=== PATIENT | male | born 1975 | race Caucasian/White ===

== ENCOUNTER 2017-07-29 08:17 | Inpatient (IN) | payer OTHER ==
[~2017-07-29] VITALS: Ht 165.1 cm; Wt 50.5 kg
[~2017-07-29 08:17] MED LIST: ACET-141 GTB; ACET-2047 GTB; ALBU2.5V3 NEB; ASCO500S2 GTB; BACL10TA GTB; BISA10SU58 PR; CHLO118L3 TOP; CRAN3875 GTB; DOCU50LI23 GTB; ENOX40DI2 SC; FERR220S2 GTB; HYDR-3498 GTB; IBUP-1542 GTB; KEP100S GTB; LACO200T2 GTB; LANS30CA GTB; MAGN2400 GTB; METO-448 GTB; MULT9LIQ4 GTB; NA P118E PR; POTA20LI5 GTB
--- NOTE | 2017-07-29 08:33 | ERD ---
ER Documentation Chief Complaint Chief Complaint Dislodged left-sided nephrostomy tube yesterday at 10 AM HPI This is a 41-year-old patient with a history of chronic encephalopathy, ventilator dependent who presents with a dislodged left nephrostomy tube. It appears that it became dislodged and removed around 10 AM yesterday. The patient has a nephrostomy tube based on paper documentation that was placed secondary to ureterolithiasis. It appears that the nephrostomy tube is been present since at least January based on the documents provided by EMS. Remainder of HPI is very limited. Patient is nonverbal. ROS All systems reviewed and are negative except as per history of present illness. Medications Home Meds Reported Medications Chlorhexidine Gluconate* (Chlorhexidine Gluconate*) 118 Ml Liquid, 15 ML TOP Q12 , ML VIA TOOTHBRUSH Q/ORAL SUCTION FOR PREVENTION/REDUCTION OF PNA 08/09/16 Albuterol Sulfate* (Albuterol Sulfate* Neb) 0.083%-3 Ml Neb, 2.5 MG NEB Q6 Y for WHEEZING AND SOB, #30 VIAL 08/09/16 Albuterol Sulfate* (Albuterol Sulfate* Neb) 0.083%-3 Ml Neb, 2.5 MG NEB Q3H Y for WHEEZING AND SOB, #30 VIAL 08/09/16 Cran/Vitc/Mannose/Inulin/Brom (Uti-Stat Liquid) 3,875 Mg/30 Ml Liquid, 3875 MG GTB DAILY 08/09/16 Acetaminophen* (Acetaminophen*) 650 Mg Tablet, 650 MG GTB TRACHE CHANGE Y for PAIN AND OR ELEVATED TEMP, #30 TAB 08/09/16 Acetaminophen* (Acetaminophen*) 500 MG Extra Strength Tablet, 1000 MG GTB Q4 Y for MODERATE PAIN LEVEL 4-6, TAB 08/09/16 Ascorbic Acid* (Vitamin C* Liq) 500 Mg/5 Ml Syrup, 500 MG GTB DAILY, ML 03/19/16 Potassium Chloride* (Potassium Chloride*) 20 Meq/15 Ml Liquid, 20 MEQ GTB DAILY , ML 02/02/16 Metoprolol Tartrate* (Lopressor*) 25 Mg Tab, 25 MG GTB DAILY, #60 TAB HOLD FOR SBP BELOW 110 HR BELOW 60 02/02/16 Lansoprazole* (Lansoprazole*) 30 Mg Capsule.dr, 30 MG GTB DAILY, CAP 02/02/16 Ferrous Sulfate (Ferrous Sulfate) 220 Mg Solution, 330 MG GTB DAILY 02/02/16 Docusate Sodium* (Colace* Liq) 50 Mg/5 Ml Liquid, 100 MG GTB QHS Y for CONSTIPATION, EA 02/02/16 Acetaminophen* (Acetaminophen*) 650 Mg Tablet, 650 MG GTB Q4 Y for PAIN AND OR ELEVATED TEMP, #30 TAB 09/26/15 Acetaminophen* (Acetaminophen*) 650 Mg Tablet, 650 MG GTB Q4 Y for TRACH CHANGE , #30 TAB 09/26/15 Hydrocodone Bit-Acetaminophen* ([place]*) 5-325 Mg Tab, 1 TAB GTB BID Y for PAIN, TAB 09/26/15 Multivit &Minerals/Ferrous Fum (MULTIVITAMIN LIQUID) 9 Mg/15 Ml Liquid, 5 ML GTB DAILY 09/26/15 Magnesium Hydroxide* (Milk Of Magnesia*) 2,400 Mg/10 Oral.susp, 10 ML GTB DAILY , ML 09/26/15 Levetiracetam* (Keppra* (Ped)) 100 Mg/Ml Liq, 10 MG GTB TID for 30 Days, BOTTLE 09/26/15 Lacosamide (Vimpat) 200 Mg Tablet, 200 MG GTB BID, TAB 09/26/15 Ibuprofen* (Motrin*) 600 Mg Tab, 600 MG GTB Q6H Y for PAIN, TAB 09/26/15 Na Phos,M-B/Na Phos,Di-Ba* (Fleet* Enema) 118 Ml Enema, 118 ML IN Q48H Y for CONSTIPATION, ENEMA 09/26/15 Enoxaparin Sodium* (Enoxaparin Sodium*) 40 Mg/0.4 Ml Syringe, 40 MG SC DAILY, SYR 09/26/15 Bisacodyl* (Dulcolax*) 10 Mg/Supp.rect Supp.rect, 10 MG IN DAILY, SUPP.RECT 09/26/15 Baclofen* (Baclofen*) 10 Mg Tablet, 10 MG GTB TID, TAB 09/26/15 Allergies Allergies: Coded Allergies: No Known Allergy (Unverified , 08/09/16) PMhx/Soc History of Surgery: Yes (PEG AND TRACH) Anesthesia Reaction: No Hx Neurological Disorder: Yes (Anoxic Encephalopathy) Hx Respiratory Disorders: Yes (RESP FAILURE) Hx Cardiac Disorders: No Hx Psychiatric Problems: No Hx Miscellaneous Medical Probl: No Hx Substance Use: No FmHx Family History: No diabetes Physical Exam Vitals Vital Signs Date Time Temp Pulse Resp B/P Pulse Ox O2 Delivery O2 Flow Rate FiO2 07/29/17 11:29 97 22 100 40 07/29/17 11:23 102 18 117/80 100 Mechanical Ventilator 07/29/17 08:50 113 23 100 50 07/29/17 08:27 99.0 112 22 105/87 99 Physical Exam General: No significant distress Head: Normocephalic, atraumatic. Eyes: Pupils equally reactive, EOM intact ENT: Moist mucous membranes Neck: Supple, no lymphadenopathy, trach in good position Respiratory: Lungs clear bilaterally, no distress Cardiovascular: RRR, no murmurs, rubs, or gallops Abdominal: Soft, non-tender, non-distended, no peritoneal signs Back: Left flank dressing without evidence of nephrostomy tube, no bleeding, no drainage : Deferred MSK: Limited movement of all 4 extremities, no bony abnormalities Neurologic: Limited exam, and encephalopathic, limited movement of all 4 extremities Skin: No rash, no significant breakdown Psych: Unable to assess Result Diagram: 07/29/17 0854 07/29/17 0854 Results 24 hrs Laboratory Tests Test 07/29/17 08:35 07/29/17 08:54 07/29/17 11:03 Urine Color YELLOW Urine Clarity CLOUDY Urine pH 8.0 Urine Specific [place] 1.017 Urine Ketones NEGATIVEmg/dL Urine Nitrite NEGATIVEmg/dL Urine Bilirubin NEGATIVEmg/dL Urine Urobilinogen 1+mg/dL Urine Leukocyte Esterase TRACELeu/ul Urine Microscopic RBC 16/HPF Urine Microscopic WBC 25/HPF Urine Calcium Oxalate Crystals FEW/HPF Urine Amorphous Crystals FEW/HPF Urine Bacteria FEW/HPF Urine Hemoglobin NEGATIVEmg/dL Urine Glucose NEGATIVEmg/dL Urine Total Protein 2+mg/dl White Blood Count 15.410^3/ul Red Blood Count 3.4110^6/ul Hemoglobin 10.7g/dl Hematocrit 31.4% Mean Corpuscular Volume 92.1fl Mean Corpuscular Hemoglobin 31.4pg Mean Corpuscular Hemoglobin Concent 34.1g/dl Red Cell Distribution Width 16.4% Platelet Count 63094^3/UL Mean Platelet Volume 10.6fl Neutrophils % 78.8% Lymphocytes % 12.4% Monocytes % 7.0% Eosinophils % 0.8% Basophils % 0.3% Nucleated Red Blood Cells % 0.0/100WBC Neutrophils # 12.110^3/ul Lymphocytes # 1.910^3/ul Monocytes # 1.110^3/ul Eosinophils # 0.110^3/ul Basophils # 0.110^3/ul Nucleated Red Blood Cells # 0.010^3/ul Sodium Level 137mmol/L Potassium Level 4.4mmol/L Chloride Level 98mmol/L Carbon Dioxide Level 26mmol/L Anion Gap 17 Blood Urea Nitrogen 28mg/dl Creatinine 0.52mg/dl Glucose Level 99mg/dl Calcium Level 9.1mg/dl Lactic Acid Level 1.5mmol/L Current Medications Medications (Trade) Dose Ordered Sig/Henry Route PRN Reason Start Time Stop Time Status Last Admin Dose Admin Sodium Chloride 1400 ml 1,400 ml BOLUS OVER 2 HOURS STAT IV* 07/29/17 09:41 07/29/17 09:43 DC 07/29/17 09:41 Ceftriaxone Sodium (Rocephin) 50 ml @ 100 mls/hr ONCE STAT IVPB 07/29/17 09:41 07/29/17 10:10 DC 07/29/17 09:41 Ondansetron HCl (Zofran Inj) 4 mg BRIDGE ORDER PRN IV NAUSEA AND/OR VOMITING 07/29/17 12:00 07/30/17 11:59 Acetaminophen (Tylenol Tab) 650 mg ER BRIDGE PRN PO MILD PAIN/FEVER 07/29/17 12:00 07/30/17 11:59 Procedures/MDM EKG, MONITORS, & DIAGNOSTIC IMAGING: CT abdomen and pelvis: IMPRESSION: 1. Limited noncontrast CT of the abdomen and pelvis. Rectal fecal impaction with constipation. 2. Mild left hydroureteronephrosis. No obstructing calculus is seen. No significant interval change. 3. Multiple nonobstructing 2-3 mm calculi within the lower pole of the right kidney. 4. IVC filter in place. 5. Gastrostomy tube in place. 6. Suprapubic catheter. 7. Bilateral sacroiliac fusion. Chest x-ray pending. To be followed by admitting team LAB INTERPRETATION: Leukocytosis with urinary tract infection, normal lactic acid MEDICAL DECISION MAKING: This is a gentleman who presents because of dislodged and remove nephrostomy tube. The patient has no evidence of infection. It is unclear if the patient still requires the nephrostomy tube. This was placed many months ago for a ureteral stone. The patient will benefit from CT imaging to evaluate for hydronephrosis, retained stone. If there is no further need for nephrostomy tube then the patient can be safely discharged back to senior living facility. I will discuss the case with Dr. Springer, the managing provider. ER COURSE: The patient was found to have a urinary tract infection. This prompted sepsis screening with blood cultures. The patient was given a 30 cc/kg bolus of saline. Ceftriaxone provided for urinary tract infection. Patient's lactic acid is normal. He is hemodynamically stable. His diagnosis is consistent with sepsis without evidence of endorgan dysfunction. I kept the patient and/or family informed of laboratory and diagnostic imaging results throughout the emergency room course. DISPOSITION PLAN: Telemetry admission CONSULTATION: Accepting care team and consultations: I discussed the current laboratory data, diagnostic imaging and emergency care provided. Admitting team: Dr. Springer Admitting team indication: Insurance directed Departure Diagnosis: Primary Impression: Chronic respiratory failure Respiratory failure complication: unspecified whether with hypoxia or hypercapnia Qualified Code: J96.10 - Chronic respiratory failure, unspecified whether with hypoxia or hypercapnia Additional Impressions: Urinary tract infection Urinary tract infection type: acute cystitis Hematuria presence: without hematuria Qualified Code: N30.00 - Acute cystitis without hematuria Sepsis Sepsis type: sepsis due to unspecified organism Qualified Code: A41.9 - Sepsis, due to unspecified organism Encephalopathy chronic Condition: Stable ASHANTI DE LA CRUZ MD Jul 29, 2017 08:33
[2017-07-29 09:01] LABS: BASOPHIL # 0.1 10^3/ul (0.0-0.1); BASOPHILS % 0.3 % (0.0-2.0); EOSINOPHILS # 0.1 10^3/ul (0.0-0.5); EOSINOPHILS % 0.8 % (0.0-7.0); HEMATOCRIT 31.4 % (42.0-52.0); HEMOGLOBIN 10.7 g/dl (14.0-18.0); LYMPHOCYTES # 1.9 10^3/ul (0.8-2.9); LYMPHOCYTES % 12.4 % (15.0-51.0); MEAN CORPUSCULAR HEMOGLOBIN 31.4 pg (29.0-33.0); MEAN CORPUSCULAR HGB CONC 34.1 g/dl (32.0-37.0); MEAN CORPUSCULAR VOLUME 92.1 fl (82.0-101.0); MEAN PLATELET VOLUME 10.6 fl (7.4-10.4); MONOCYTE # 1.1 10^3/ul (0.3-0.9); NEUTROPHIL # 12.1 10^3/ul (1.6-7.5); NEUTROPHILS % 78.8 % (39.0-77.0); PLATELET COUNT 366 10^3/UL (140-415); RED BLOOD COUNT 3.41 10^6/ul (4.70-6.10); RED CELL DISTRIBUTION WIDTH 16.4 % (11.5-14.5); WHITE BLOOD COUNT 15.4 10^3/ul (4.8-10.8)
[2017-07-29 09:05] LABS: ADD UMIC YES; UR AMORPHOUS CRYSTAL FEW /HPF (NONE SEEN); UR ASCORBIC ACID 40 mg/dL (NEGATIVE); UR BACTERIA FEW /HPF (NONE SEEN); UR BILIRUBIN (Dip) NEGATIVE (NEGATIVE); UR BLOOD (Dip) NEGATIVE (NEGATIVE); UR CLARITY CLOUDY (CLEAR); UR COLOR YELLOW (YELLOW); UR GLUCOSE (Dip) NEGATIVE (NEGATIVE); UR KETONES (Dip) NEGATIVE (NEGATIVE); UR LEUKOCYTE ESTERASE (Dip) TRACE Leu/ul (NEGATIVE); UR NITRITE (Dip) NEGATIVE (NEGATIVE); UR RBC 16 /HPF (0-5); UR SPECIFIC GRAVITY (Dip) 1.017 (1.003-1.030); UR TOTAL PROTEIN (Dip) 2+ mg/dl (NEGATIVE); UR UROBILINOGEN (Dip) 1+ mg/dL (NEGATIVE)
[2017-07-29 09:30] LABS: CALCIUM 9.1 mg/dl (8.4-10.2); CREATININE 0.52 mg/dl (0.61-1.24); POTASSIUM 4.4 mmol/L (3.5-5.1)
[2017-07-29] MEDS ORDERED: CEFTRIAXONE 1 GM/50 ML (PMX) 50 ML IVPB STA (09:41)
[2017-07-29] MEDS ORDERED: SODIUM CHLORIDE 0.9% 1L BAG IV* STA (09:41)
--- NOTE | 2017-07-29 10:05 | RADRPT ---
PROCEDURE: CT Abdomen and Pelvis without contrast. CLINICAL INDICATION: Abdominal pain. TECHNIQUE: Routine axial tomographic images of the abdomen and pelvis were obtained from the domes the diaphragm to the symphysis pubis. The patient was scanned withoutoral or intravenous contrast. Coronal and sagittal reformatted images were obtained from the axial source images. Images were re viewed on a high-resolution PACS workstation. The total exam CTDI equals 7.81 mGy and the total exam DLP equals 426.23 mGy-cm. One or more of the following dose reduction techniques were used: Autom ated exposure control, adjustment of the mA and / or kV according to patient size, or use of iterati ve reconstruction technique. DICOM images are available. COMPARISON: CT 02/17/2016 FINDINGS: The visualized portions of the lung bases demonstrate right basilar atelectasis Evaluation of the intra-abdominal solid organs is somewhat limited on this noncontrast examination. The liver appear s normal in size. There is no intra or extrahepatic biliary dilatation. The gallbladder is unremar kable by CT criteria. The spleen, pancreas, and adrenal glands are unremarkable. An IVC filter is i n place. The kidneys are symmetric in size. There is mild left hydronephrosis and hydroureter. There are mul tiple nonobstructing 2-3 mm calculi within the lower pole of the right kidney. No perinephric inflam matory changes are identified. The urinary bladder is decompressed by a suprapubic catheter. A gastrostomy tube is in place. The bowel demonstrates normal course and caliber. There is no evide nce of bowel obstruction. The appendix is not visualized with certainty. There is large volume insp issated stool throughout the colon and within the rectum. The pelvic organs are grossly unremarkabl e. No intraperitoneal free fluid, free air, or abscess is identified. No retroperitoneal, mesenteri c, or inguinal lymphadenopathy is identified. The aorta is normal in caliber. The osseous structures demonstrate fusion of the sacroiliac joints. No significant subcutaneous so ft tissue abnormalities are seen. IMPRESSION: 1. Limited noncontrast CT of the abdomen and pelvis. Rectal fecal impaction with constipation. 2. Mild left hydroureteronephrosis. No obstructing calculus is seen. No significant interval change . 3. Multiple nonobstructing 2-3 mm calculi within the lower pole of the right kidney. 4. IVC filter in place. 5. Gastrostomy tube in place. 6. Suprapubic catheter. 7. Bilateral sacroiliac fusion. RPTAT: HH .Taylor Haider MD, Date Time Electronically viewed and signed by .Taylor Haider MD, on 07/29/2017 10:05 .G/
[2017-07-29] MEDS ORDERED: ONDANSETRON 4 MG INJ IV PRN (12:00)
[2017-07-29] MEDS ORDERED: ACETAMINOPHEN 325 MG TAB PO PRN (12:00)
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
[2017-07-29] MEDS ORDERED: LACTINEX GTB (12:50)
[2017-07-29] MEDS ORDERED: CRAN425C2 GTB (12:52)
[2017-07-29] MEDS ORDERED: LEVE500S8 GTB (12:53)
[2017-07-29] MEDS ORDERED: PANT40TA4 PO (12:54)
[2017-07-29] MEDS ORDERED: LORAZEPAM 2 MG INJ IV PRN (14:00)
[2017-07-29] MEDS ORDERED: NACL 0.9% 3 ML SYG IV SCH (14:00)
[2017-07-29] MEDS ORDERED: ALBUTEROL 0.083% (NEB) 2.5 MG/3 ML AMP NEB PRN (14:30)
[2017-07-29] MEDS ORDERED: DOCUSATE SODIUM 10 MG/ML (10ML CUP) GTB PRN (14:30)
[2017-07-29] MEDS ORDERED: POLYETHYLENE GLYCOL 17 GM PACKET GTB PRN (14:30)
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
[2017-07-29] MEDS ORDERED: VANCOMYCIN IV PER PHARMACY XX SCH (16:00)
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
[2017-07-29] MEDS ORDERED: VANCOMYCIN 1 GM in NS 250 ML IVPB SCH (19:00)
[2017-07-29] MEDS: FAMOTIDINE 20 MG TAB GTB SCH (21:17)
[2017-07-29] MEDS: CEFEPIME 1GM/50 ML (PMX) 50 ML IVPB SCH (21:40)
[2017-07-29] MEDS: BACLOFEN 10 MG TAB GTB SCH (22:25)
[2017-07-29] MEDS: LEVETIRACETAM (100 MG/ML) 5ML CUP GTB SCH (22:32)
[2017-07-30] VITALS (25 sets, daily range): BP systolic 98–130; BP diastolic 66–96; PULSE 71–96; RESP 14–26; TEMP 98
[2017-07-30] MEDS: NS + KCL 20 MEQ 1,000 ML IV SCH ×4 (00:30→18:20)
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
[2017-07-30] MEDS ORDERED: VANCOMYCIN 750 MG in DEXTROSE 5% 150 ML IVPB SCH ×2 (05:00→09:30)
[2017-07-30] MEDS: LEVETIRACETAM (100 MG/ML) 5ML CUP GTB SCH ×3 (06:33→21:43)
[2017-07-30 07:35] LABS: ALBUMIN 3.6 g/dl (3.3-4.9); ALBUMIN/GLOBULIN RATIO 0.9; BILIRUBIN,INDIRECT 0.7 mg/dl (0-1.1); BILIRUBIN,TOTAL 0.7 mg/dl (0.2-1.3); CALCIUM 9.1 mg/dl (8.4-10.2); CREATININE 0.38 mg/dl (0.61-1.24); POTASSIUM 3.6 mmol/L (3.5-5.1); TOTAL PROTEIN 7.6 g/dl (6.1-8.1)
[2017-07-30] MEDS: SACCHAROMYCES BOULARDII 250 MG CAP GTB SCH (08:41)
[2017-07-30] MEDS: BACLOFEN 10 MG TAB GTB SCH ×2 (08:41→21:43)
[2017-07-30] MEDS: FERROUS SULFATE 60 MG/ML 5ML CUP GTB SCH (08:41)
[2017-07-30] MEDS: FAMOTIDINE 20 MG TAB GTB SCH ×2 (08:41→21:43)
[2017-07-30] MEDS: CEFEPIME 1GM/50 ML (PMX) 50 ML IVPB SCH ×2 (08:41→20:47)
[2017-07-30] MEDS: ASCORBIC ACID 500 MG TAB GTB SCH (08:41)
[2017-07-30] MEDS: ENOXAPARIN 30 MG/0.3 ML SYG SC SCH (08:44)
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
[2017-07-30] MEDS: VANCOMYCIN 750 MG in DEXTROSE 5% 150 ML IVPB SCH ×2 (13:46→21:49)
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
--- NOTE | 2017-07-30 19:37 | CONS ---
Date/Time of Note Date/Time of Note DATE: 07/30/17 TIME: 19:31 Assessment/Plan Assessment/Plan Additional Assessment/Plan IMP: 1. VDRF 2. UTI 3. Encephalopathy 4. s/p Nephrostomy tube dislodgement 5. Seizure D/O RECS: 1. Vent support 2. Obtain ABG 3. Will provide vent settings 4. BDs 5. TF/Free H20 Consultation Date/Type/Reason Admit Date/Time Jul 29, 2017 at 11:57 Type of Consultation: Pulm Hx of Present Illness Briefly, this is a 41-year-old male with a history of chronic anoxic encephalopathy, ventilator dependent respiratory failure with tracheostomy, dysphagia with G-tube and neurogenic bladder with a suprapubic tube and nephrostomy, bedridden bilateral contracted extremities, seizure disorder, resident of a SNF, transferred from his SNF for dislodgment of a nephrostomy tube, found to have a UTI with no clear indication for a nephrostomy. Subjective hx not possible: pt non-verbal Past Medical History as per HPI Medical History: other Past Surgical History Past Surgical Hx: other Family History Significant Family History: no pertinent family hx Social History Alcohol Use: none Smoking Status: Unknown if ever smoked Drug Use: none Exam/Review of Systems Vital Signs Vitals Vital Signs Date Time Temp Pulse Resp B/P Pulse Ox O2 Delivery O2 Flow Rate FiO2 07/30/17 19:24 90 26 98 30 07/30/17 15:16 98.2 104/69 07/30/17 00:45 Mechanical Ventilator Intake and Output 07/29/17 07/29/17 07/30/17 15:00 23:00 07:00 Intake Total 50 ml 700 ml Output Total 700 ml 1200 ml Balance -650 ml -500 ml Exam Head: atraumatic, normocephalic Eyes: EOMI, nl conjunctiva, nl lids ENMT: nl external ears & nose, nl lips & teeth Neck: non-tender, supple Respiratory: clear to auscultation, normal air movement Cardiovascular: nl pulses, regular rate and rhythm Gastrointestinal: nl liver, spleen, non-tender, soft Extremities: other (contacted ) Results Result Diagram: 07/29/17 0854 07/30/17 0612 Results 24 hrs Laboratory Tests Test 07/29/17 21:55 07/30/17 06:12 Lactic Acid Level 0.7 Sodium Level 141 Potassium Level 3.6 Chloride Level 108 # Carbon Dioxide Level 21 Anion Gap 16 Blood Urea Nitrogen 16 # Creatinine 0.38 L Glucose Level 95 Calcium Level 9.1 Total Bilirubin 0.7 Direct Bilirubin 0.00 Indirect Bilirubin 0.7 Aspartate Amino Transf (AST/SGOT) 34 Alanine Aminotransferase (ALT/SGPT) 53 Alkaline Phosphatase 106 Total Protein 7.6 Albumin 3.6 Globulin 4.00 H Albumin/Globulin Ratio 0.90 Medications Medications Current Medications Lorazepam (Ativan) 0.5 mg Q6H PRN IV ANXIETY; Start 07/29/17 at 14:00 Acetaminophen (Tylenol Liquid) 650 mg Q6H PRN GTB PAIN LEVEL 1-3 OR FEVER; Start 07/29/17 at 14:00 Morphine Sulfate (morphine) 2 mg Q4H PRN IV PAIN LEVEL 7-10; Start 07/29/17 at 14:00 Famotidine (Pepcid) 20 mg Q12 GTB Last administered on 07/30/17 08:41; Admin Dose 20 MG; Start 07/29/17 at 21:00 Enoxaparin Sodium (Lovenox) 30 mg DAILY SC Last administered on 07/30/17 08:44 ; Admin Dose 30 MG; Start 07/30/17 at 09:00 Albuterol (Proventil 0.083% (Neb)) 2.5 mg Q6 PRN NEB WHEEZING AND SOB; Start 07/29/17 at 14:30 Ascorbic Acid (Vitamin C) 500 mg DAILY GTB Last administered on 07/30/17 08:41 ; Admin Dose 500 MG; Start 07/30/17 at 09:00 Baclofen (Lioresal) 10 mg BID GTB Last administered on 07/30/17 08:41; Admin Dose 10 MG; Start 07/29/17 at 21:00 Docusate Sodium (Colace Liquid Cup) 100 mg QHS PRN GTB CONSTIPATION; Start 07/29/17 at 14:30 Levetiracetam (Keppra Liquid) 1,000 mg Q8 GTB Last administered on 07/30/17 13 :42; Admin Dose 1,000 MG; Start 07/29/17 at 22:00 Ferrous Sulfate (Feosol Liquid Cup) 300 mg DAILY GTB Last administered on 08:41; Admin Dose 300 MG; Start 07/30/17 at 09:00 Saccharomyces Boulardii 1 mg 1 mg DAILY GTB ; Start 07/30/17 at 09:00 Potassium Chloride/Sodium Chloride (NS-KCl 20 Meq) 1,000 ml @ 100 mls/hr Q10H IV Last administered on 07/30/17 18:20; Admin Dose 100 MLS/HR; Start 07/29/17 at 14:30 Polyethylene Glycol 17 gm 17 gm DAILY PRN GTB CONSTIPATION; Start 07/29/17 at 14:30 Cefepime HCl 50 ml @ 100 mls/hr Q12 IVPB Last administered on 07/30/17 08:41 ; Admin Dose 100 MLS/HR; Start 07/29/17 at 21:00 Vancomycin HCl/ Dextrose/Water (Vancocin/D5W) 150 ml @ 75 mls/hr Q8 IVPB Last administered on 07/30/17 13:46; Admin Dose 75 MLS/HR; Start 07/30/17 at 14:00 Miscellaneous Information (*Rx Drug Level Order Reminder*) VANCOMYCIN TROUGH ON ... ONCE ONCE XX ; Start 07/30/17 at 21:00; Stop 07/30/17 at 21:01 YESSICA HIGH MD Jul 30, 2017 19:37
--- NOTE | 2017-07-30 21:58 | CONS ---
Date/Time of Note Date/Time of Note DATE: 07/30/17 TIME: 21:45 Consult Date/Type/Reason Admit Date/Time Jul 29, 2017 at 11:57 Initial Consult Date jul 2903/2017 Type of Consultation: Urology Reason for Consultation hydronephrosis Subjective not communicative,SP tube is draining clear urine Objective Vital Signs Date Time Temp Pulse Resp B/P Pulse Ox O2 Delivery O2 Flow Rate FiO2 07/30/17 21:28 89 22 97 30 07/30/17 19:48 98.3 130/76 07/30/17 00:45 Mechanical Ventilator Intake and Output 07/29/17 07/29/17 07/30/17 15:00 23:00 07:00 Intake Total 50 ml 700 ml Output Total 700 ml 1200 ml Balance -650 ml -500 ml Exam SP tube draining well,no hematuria Results/Medications Result Diagram: 07/29/17 0854 07/30/17 0612 Results 24 hrs Laboratory Tests Test 07/29/17 21:55 07/30/17 06:12 07/30/17 21:01 Lactic Acid Level 0.7 Sodium Level 141 Potassium Level 3.6 Chloride Level 108 # Carbon Dioxide Level 21 Anion Gap 16 Blood Urea Nitrogen 16 # Creatinine 0.38 L Glucose Level 95 Calcium Level 9.1 Total Bilirubin 0.7 Direct Bilirubin 0.00 Indirect Bilirubin 0.7 Aspartate Amino Transf (AST/SGOT) 34 Alanine Aminotransferase (ALT/SGPT) 53 Alkaline Phosphatase 106 Total Protein 7.6 Albumin 3.6 Globulin 4.00 H Albumin/Globulin Ratio 0.90 Vancomycin Level Trough 17.0 Medications Current Medications Lorazepam (Ativan) 0.5 mg Q6H PRN IV ANXIETY; Start 07/29/17 at 14:00 Acetaminophen (Tylenol Liquid) 650 mg Q6H PRN GTB PAIN LEVEL 1-3 OR FEVER; Start 07/29/17 at 14:00 Morphine Sulfate (morphine) 2 mg Q4H PRN IV PAIN LEVEL 7-10; Start 07/29/17 at 14:00 Famotidine (Pepcid) 20 mg Q12 GTB Last administered on 07/30/17 21:43; Admin Dose 20 MG; Start 07/29/17 at 21:00 Enoxaparin Sodium (Lovenox) 30 mg DAILY SC Last administered on 07/30/17 08:44 ; Admin Dose 30 MG; Start 07/30/17 at 09:00 Albuterol (Proventil 0.083% (Neb)) 2.5 mg Q6 PRN NEB WHEEZING AND SOB; Start 07/29/17 at 14:30 Ascorbic Acid (Vitamin C) 500 mg DAILY GTB Last administered on 07/30/17 08:41 ; Admin Dose 500 MG; Start 07/30/17 at 09:00 Baclofen (Lioresal) 10 mg BID GTB Last administered on 07/30/17 21:43; Admin Dose 10 MG; Start 07/29/17 at 21:00 Docusate Sodium (Colace Liquid Cup) 100 mg QHS PRN GTB CONSTIPATION; Start 07/29/17 at 14:30 Levetiracetam (Keppra Liquid) 1,000 mg Q8 GTB Last administered on 07/30/17 21 :43; Admin Dose 1,000 MG; Start 07/29/17 at 22:00 Ferrous Sulfate (Feosol Liquid Cup) 300 mg DAILY GTB Last administered on 08:41; Admin Dose 300 MG; Start 07/30/17 at 09:00 Saccharomyces Boulardii 1 mg 1 mg DAILY GTB ; Start 07/30/17 at 09:00 Potassium Chloride/Sodium Chloride (NS-KCl 20 Meq) 1,000 ml @ 100 mls/hr Q10H IV Last administered on 07/30/17 18:20; Admin Dose 100 MLS/HR; Start 07/29/17 at 14:30 Polyethylene Glycol 17 gm 17 gm DAILY PRN GTB CONSTIPATION; Start 07/29/17 at 14:30 Cefepime HCl 50 ml @ 100 mls/hr Q12 IVPB Last administered on 07/30/17 20:47 ; Admin Dose 100 MLS/HR; Start 07/29/17 at 21:00 Vancomycin HCl/ Dextrose/Water (Vancocin/D5W) 150 ml @ 75 mls/hr Q8 IVPB Last administered on 07/30/17 13:46; Admin Dose 75 MLS/HR; Start 07/30/17 at 14:00 Assessment/Plan Chief Complaint/Hosp Course 41 year old male with respiratory failure and is on a respirator. He has a mild left hydronephrosis and there is no obstructing stones in the ureter. He had a left nephrostomy while in the SNF and that came out.His renal function is normal. We'll observe.For now treat the infection. Problems: LAYLA BOLES MD Jul 30, 2017 21:57
[2017-07-31] VITALS (25 sets, daily range): BP systolic 129–159; BP diastolic 68–83; PULSE 55–87; RESP 14–22
[2017-07-31 05:22] LABS: AADO2 Arterial 45.5 mmHg (7.0-24.0); Allen Test ACCEPTAB; Arterial Base Excess -2.6 mmol/L (-3.0-3); Arterial COHb 0 % (0.0-3.0); Arterial Fraction of Oxyhgb 98.4 % (93.0-99.0); Arterial HCO3 20.6 mmol/L (22.0-26.0); Arterial MetHb 0.1 % (0.0-1.5); Arterial Total Hemglobin 10.9 g/dl (12.0-18.0); MODE VEBT - AC
[2017-07-31] MEDS: VANCOMYCIN 750 MG in DEXTROSE 5% 150 ML IVPB SCH (06:17)
[2017-07-31] MEDS: LEVETIRACETAM (100 MG/ML) 5ML CUP GTB SCH ×3 (06:17→21:11)
[2017-07-31] MEDS: NS + KCL 20 MEQ 1,000 ML IV SCH ×3 (06:19→21:28)
[2017-07-31] MEDS: ASCORBIC ACID 500 MG TAB GTB SCH (08:37)
[2017-07-31] MEDS: FAMOTIDINE 20 MG TAB GTB SCH ×2 (08:37→21:11)
[2017-07-31] MEDS: BACLOFEN 10 MG TAB GTB SCH ×2 (08:37→21:11)
[2017-07-31] MEDS: SACCHAROMYCES BOULARDII 250 MG CAP GTB SCH (08:37)
[2017-07-31] MEDS: FERROUS SULFATE 60 MG/ML 5ML CUP GTB SCH (08:37)
[2017-07-31] MEDS: CEFEPIME 1GM/50 ML (PMX) 50 ML IVPB SCH ×2 (08:38→21:29)
[2017-07-31] MEDS: ENOXAPARIN 30 MG/0.3 ML SYG SC SCH (08:38)
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
[2017-07-31] MEDS ORDERED: AMIKACIN IV PER PHARMACY XX SCH (14:30)
[2017-07-31] MEDS: AMIKACIN 750 MG in DEXTROSE 5% 100 ML IVPB SCH (14:48)
--- NOTE | 2017-07-31 15:32 | CONS ---
Date/Time of Note Date/Time of Note DATE: 07/31/17 TIME: 15:28 Consult Date/Type/Reason Admit Date/Time Jul 29, 2017 at 11:57 Initial Consult Date jul 2903/2017 Type of Consultation: Urology Reason for Consultation This large nephrostomy tube. Subjective Patient on a respirator, not communicative but he looks at you when you call his name and open his mouth when asked to Objective Vital Signs Date Time Temp Pulse Resp B/P Pulse Ox O2 Delivery O2 Flow Rate FiO2 07/31/17 15:21 98.6 63 18 137/78 97 07/31/17 12:51 30 07/30/17 00:45 Mechanical Ventilator Intake and Output 07/30/17 07/30/17 07/31/17 15:00 23:00 07:00 Intake Total 50 ml 1810 ml 1050 ml Output Total 450 ml 750 ml Balance 50 ml 1360 ml 300 ml Exam Patient on a respirator, has a suprapubic tube that is draining clear urine, his renal function is stable, in fact his creatinine is a little better Results/Medications Result Diagram: 07/29/17 0854 07/30/17 0612 Results 24 hrs Laboratory Tests Test 07/30/17 21:01 07/31/17 05:00 Vancomycin Level Trough 17.0 Blood Gas Specimen Source Blood arterial Arterial Blood Date Drawn 07/31/2017 4:57:03 AM Arterial Blood pH (Temp corrected) 7.448 Arterial Blood pCO2 (Temp correct) 30.5 L Arterial Blood pO2 (Temp corrected) 132.6 H Arterial Blood HCO3 20.6 L Arterial Blood Base Excess -2.6 Arterial Blood Oxygen Saturation 98.5 H Javi Test ACCEPTAB Arterial Blood Gas Puncture Site Right Radial Arterial Blood Carboxyhemoglobin 0 Arterial Blood Methemoglobin 0.1 Blood Gas A-a O2 Differential 45.5 H Oxyhemoglobin Percent 98.4 Total Hemoglobin 10.9 L Blood Gas Temperature 37.0 Blood Gas Respiration Rate 14.0 Blood Gas Actual Respiration Rate 14 Blood Gas Modality VEBT - AC FiO2 30.0 Blood Gas Tidal Volume 300.0 Blood Gas Low PEEP Setting 5.0 Blood Gas Inspiratory Pressure 20.0 Blood Gas Notified Whom RTR Blood Gas Notified Time 07/31/2017 5:22:30 AM Medications Current Medications Lorazepam (Ativan) 0.5 mg Q6H PRN IV ANXIETY; Start 07/29/17 at 14:00 Acetaminophen (Tylenol Liquid) 650 mg Q6H PRN GTB PAIN LEVEL 1-3 OR FEVER; Start 07/29/17 at 14:00 Morphine Sulfate (morphine) 2 mg Q4H PRN IV PAIN LEVEL 7-10; Start 07/29/17 at 14:00 Famotidine (Pepcid) 20 mg Q12 GTB Last administered on 07/31/17 08:37; Admin Dose 20 MG; Start 07/29/17 at 21:00 Enoxaparin Sodium (Lovenox) 30 mg DAILY SC Last administered on 07/31/17 08: 38; Admin Dose 30 MG; Start 07/30/17 at 09:00 Albuterol (Proventil 0.083% (Neb)) 2.5 mg Q6 PRN NEB WHEEZING AND SOB; Start 07/29/17 at 14:30 Ascorbic Acid (Vitamin C) 500 mg DAILY GTB Last administered on 07/31/17 08: 37; Admin Dose 500 MG; Start 07/30/17 at 09:00 Baclofen (Lioresal) 10 mg BID GTB Last administered on 07/31/17 08:37; Admin Dose 10 MG; Start 07/29/17 at 21:00 Docusate Sodium (Colace Liquid Cup) 100 mg QHS PRN GTB CONSTIPATION; Start 07/29/17 at 14:30 Levetiracetam (Keppra Liquid) 1,000 mg Q8 GTB Last administered on 07/31/17 14:48; Admin Dose 1,000 MG; Start 07/29/17 at 22:00 Ferrous Sulfate (Feosol Liquid Cup) 300 mg DAILY GTB Last administered on 07/31 08:37; Admin Dose 300 MG; Start 07/30/17 at 09:00 Saccharomyces Boulardii 1 mg 1 mg DAILY GTB Last administered on 07/31/17 08: 37; Admin Dose 1 MG; Start 07/30/17 at 09:00 Potassium Chloride/Sodium Chloride (NS-KCl 20 Meq) 1,000 ml @ 100 mls/hr Q10H IV Last administered on 07/31/17 06:19; Admin Dose 100 MLS/HR; Start at 14:30 Polyethylene Glycol 17 gm 17 gm DAILY PRN GTB CONSTIPATION; Start 07/29/17 at 14:30 Cefepime HCl 50 ml @ 100 mls/hr Q12 IVPB Last administered on 07/31/17 08:38 ; Admin Dose 100 MLS/HR; Start 07/29/17 at 21:00 Vancomycin HCl 250 ml @ 125 mls/hr Q12H IVPB ; Start 07/31/17 at 18:00 Amikacin Sulfate/ Dextrose (Amikacin/D5W) 103 ml @ 102 mls/hr Q24H IVPB Last administered on 07/31/17 14:48; Admin Dose 102 MLS/HR; Start 07/31/17 at 15: 00 Amikacin Sulfate (Amikacin Iv Per Pharmacy) PER PHARMACY DOSING NOTE XX ; Start 07/31/17 at 14:30 Miscellaneous Information (*Rx Drug Level Order Reminder*) AMIKACIN RANDOM @ 0, 100 ON ... ONCE ONCE XX ; Start 08/01/17 at 01:00; Stop 08/01/17 at 01:01 Assessment/Plan Chief Complaint/Hosp Course 41 year old male with respiratory failure and is on a respirator. He has a mild left hydronephrosis and there is no obstructing stones in the ureter. He had a left nephrostomy while in the SNF and that came out.His renal function is normal. His creatinine is 0.38 and the urine culture showed Pseudomonas We'll observe and there is no need for any nephrostomy tube.Treat the infection. Problems: LAYLA BOLES MD Jul 31, 2017 15:32
[2017-07-31] MEDS: VANCOMYCIN 1 GM in NS 250 ML IVPB SCH (17:49)
--- NOTE | 2017-07-31 18:31 | CONS ---
Date/Time of Note Date/Time of Note DATE: 07/31/17 TIME: 18:29 Consult Date/Type/Reason Admit Date/Time Jul 29, 2017 at 11:57 Initial Consult Date Type of Consultation: Pulm Subjective No events. ABG on vent noted. Objective Vital Signs Date Time Temp Pulse Resp B/P Pulse Ox O2 Delivery O2 Flow Rate FiO2 07/31/17 17:05 61 14 97 30 07/31/17 15:21 98.6 137/78 07/30/17 00:45 Mechanical Ventilator Intake and Output 07/30/17 07/30/17 07/31/17 15:00 23:00 07:00 Intake Total 50 ml 1810 ml 1050 ml Output Total 450 ml 750 ml Balance 50 ml 1360 ml 300 ml Exam HEENT: Neck supple; no JVD; no LAD; + trach CVS: RRR, S1 and S2 CHEST: Clear ABD: Soft, NT, + BS EXT: No c/c/e; + contractures Results/Medications Result Diagram: 07/29/17 0854 07/30/17 0612 Results 24 hrs Laboratory Tests Test 07/30/17 21:01 07/31/17 05:00 Vancomycin Level Trough 17.0 Blood Gas Specimen Source Blood arterial Arterial Blood Date Drawn 07/31/2017 4:57:03 AM Arterial Blood pH (Temp corrected) 7.448 Arterial Blood pCO2 (Temp correct) 30.5 L Arterial Blood pO2 (Temp corrected) 132.6 H Arterial Blood HCO3 20.6 L Arterial Blood Base Excess -2.6 Arterial Blood Oxygen Saturation 98.5 H Javi Test ACCEPTAB Arterial Blood Gas Puncture Site Right Radial Arterial Blood Carboxyhemoglobin 0 Arterial Blood Methemoglobin 0.1 Blood Gas A-a O2 Differential 45.5 H Oxyhemoglobin Percent 98.4 Total Hemoglobin 10.9 L Blood Gas Temperature 37.0 Blood Gas Respiration Rate 14.0 Blood Gas Actual Respiration Rate 14 Blood Gas Modality VEBT - AC FiO2 30.0 Blood Gas Tidal Volume 300.0 Blood Gas Low PEEP Setting 5.0 Blood Gas Inspiratory Pressure 20.0 Blood Gas Notified Whom RTR Blood Gas Notified Time 07/31/2017 5:22:30 AM Medications Current Medications Lorazepam (Ativan) 0.5 mg Q6H PRN IV ANXIETY; Start 07/29/17 at 14:00 Acetaminophen (Tylenol Liquid) 650 mg Q6H PRN GTB PAIN LEVEL 1-3 OR FEVER; Start 07/29/17 at 14:00 Morphine Sulfate (morphine) 2 mg Q4H PRN IV PAIN LEVEL 7-10; Start 07/29/17 at 14:00 Famotidine (Pepcid) 20 mg Q12 GTB Last administered on 07/31/17 08:37; Admin Dose 20 MG; Start 07/29/17 at 21:00 Enoxaparin Sodium (Lovenox) 30 mg DAILY SC Last administered on 07/31/17 08: 38; Admin Dose 30 MG; Start 07/30/17 at 09:00 Albuterol (Proventil 0.083% (Neb)) 2.5 mg Q6 PRN NEB WHEEZING AND SOB; Start 07/29/17 at 14:30 Ascorbic Acid (Vitamin C) 500 mg DAILY GTB Last administered on 07/31/17 08: 37; Admin Dose 500 MG; Start 07/30/17 at 09:00 Baclofen (Lioresal) 10 mg BID GTB Last administered on 07/31/17 08:37; Admin Dose 10 MG; Start 07/29/17 at 21:00 Docusate Sodium (Colace Liquid Cup) 100 mg QHS PRN GTB CONSTIPATION; Start 07/29/17 at 14:30 Levetiracetam (Keppra Liquid) 1,000 mg Q8 GTB Last administered on 07/31/17 14:48; Admin Dose 1,000 MG; Start 07/29/17 at 22:00 Ferrous Sulfate (Feosol Liquid Cup) 300 mg DAILY GTB Last administered on 07/31 08:37; Admin Dose 300 MG; Start 07/30/17 at 09:00 Saccharomyces Boulardii 1 mg 1 mg DAILY GTB Last administered on 07/31/17 08: 37; Admin Dose 1 MG; Start 07/30/17 at 09:00 Potassium Chloride/Sodium Chloride (NS-KCl 20 Meq) 1,000 ml @ 100 mls/hr Q10H IV Last administered on 07/31/17 06:19; Admin Dose 100 MLS/HR; Start at 14:30 Polyethylene Glycol 17 gm 17 gm DAILY PRN GTB CONSTIPATION; Start 07/29/17 at 14:30 Cefepime HCl 50 ml @ 100 mls/hr Q12 IVPB Last administered on 07/31/17 08:38 ; Admin Dose 100 MLS/HR; Start 07/29/17 at 21:00 Vancomycin HCl 250 ml @ 125 mls/hr Q12H IVPB Last administered on 07/31/17 17:49; Admin Dose 125 MLS/HR; Start 07/31/17 at 18:00 Amikacin Sulfate/ Dextrose (Amikacin/D5W) 103 ml @ 102 mls/hr Q24H IVPB Last administered on 07/31/17 14:48; Admin Dose 102 MLS/HR; Start 07/31/17 at 15: 00 Amikacin Sulfate (Amikacin Iv Per Pharmacy) PER PHARMACY DOSING NOTE XX ; Start 07/31/17 at 14:30 Miscellaneous Information (*Rx Drug Level Order Reminder*) AMIKACIN RANDOM @ 0, 100 ON ... ONCE ONCE XX ; Start 08/01/17 at 01:00; Stop 08/01/17 at 01:01 Assessment/Plan Chief Complaint/Hosp Course Briefly, this is a 41-year-old male with a history of chronic anoxic encephalopathy, ventilator dependent respiratory failure with tracheostomy, dysphagia with G-tube and neurogenic bladder with a suprapubic tube and nephrostomy, bedridden bilateral contracted extremities, seizure disorder, resident of a SNF, transferred from his SNF for dislodgment of a nephrostomy tube, found to have a UTI with no clear indication for a nephrostomy. Problems: Additional Assessment/Plan IMP: 1. VDRF 2. UTI 3. Encephalopathy 4. s/p Nephrostomy tube dislodgement 5. Seizure D/O RECS: 1. Vent support 2. Abx per ID 3. BDs 4. TF/Free H20 YESSICA HIGH MD Jul 31, 2017 18:31
[2017-07-31] MEDS: morphine 2 MG INJ IV PRN (21:12)
[2017-08-01] VITALS (23 sets, daily range): BP systolic 112–164; BP diastolic 73–93; PULSE 49–105; RESP 14–22
[2017-08-01] MEDS: VANCOMYCIN 1 GM in NS 250 ML IVPB SCH (05:13)
[2017-08-01] MEDS: LEVETIRACETAM (100 MG/ML) 5ML CUP GTB SCH ×3 (05:13→22:03)
[2017-08-01 06:46] LABS: BASOPHILS % 0.6 % (0.0-2.0); EOSINOPHILS # 0.3 10^3/ul (0.0-0.5); EOSINOPHILS % 3.8 % (0.0-7.0); HEMATOCRIT 27.4 % (42.0-52.0); HEMOGLOBIN 8.7 g/dl (14.0-18.0); LYMPHOCYTES # 1.4 10^3/ul (0.8-2.9); LYMPHOCYTES % 20.7 % (15.0-51.0); MEAN CORPUSCULAR HEMOGLOBIN 31.1 pg (29.0-33.0); MEAN CORPUSCULAR HGB CONC 31.8 g/dl (32.0-37.0); MEAN CORPUSCULAR VOLUME 97.9 fl (82.0-101.0); MEAN PLATELET VOLUME 10.6 fl (7.4-10.4); MONOCYTE # 0.4 10^3/ul (0.3-0.9); MONOCYTES % 5.6 % (0.0-11.0); NEUTROPHIL # 4.7 10^3/ul (1.6-7.5); NEUTROPHILS % 68.7 % (39.0-77.0); PLATELET COUNT 280 10^3/UL (140-415); RED CELL DISTRIBUTION WIDTH 16.8 % (11.5-14.5); WHITE BLOOD COUNT 6.8 10^3/ul (4.8-10.8)
[2017-08-01 07:04] LABS: CALCIUM 8.6 mg/dl (8.4-10.2); CREATININE 0.35 mg/dl (0.61-1.24); POTASSIUM 4.5 mmol/L (3.5-5.1)
[2017-08-01] MEDS: FAMOTIDINE 20 MG TAB GTB SCH ×2 (09:34→22:03)
[2017-08-01] MEDS: BACLOFEN 10 MG TAB GTB SCH ×2 (09:34→22:03)
[2017-08-01] MEDS: SACCHAROMYCES BOULARDII 250 MG CAP GTB SCH (09:34)
[2017-08-01] MEDS: CEFEPIME 1GM/50 ML (PMX) 50 ML IVPB SCH (09:34)
[2017-08-01] MEDS: FERROUS SULFATE 60 MG/ML 5ML CUP GTB SCH (09:34)
[2017-08-01] MEDS: ASCORBIC ACID 500 MG TAB GTB SCH (09:34)
[2017-08-01] MEDS: ENOXAPARIN 30 MG/0.3 ML SYG SC SCH (09:50)
--- NOTE | 2017-08-01 14:05 | CONS ---
Date/Time of Note Date/Time of Note DATE: 08/01/17 TIME: 14:04 Consult Date/Type/Reason Admit Date/Time Jul 29, 2017 at 11:57 Initial Consult Date Type of Consultation: Pulm Subjective Patient remained stable. No new events. Objective Vital Signs Date Time Temp Pulse Resp B/P Pulse Ox O2 Delivery O2 Flow Rate FiO2 08/01/17 13:05 108 20 96 30 08/01/17 11:30 98.3 164/93 07/30/17 00:45 Mechanical Ventilator Intake and Output 07/31/17 07/31/17 08/01/17 14:59 22:59 06:59 Intake Total 50 ml 2213 ml 1050 ml Output Total 900 ml 1300 ml Balance 50 ml 1313 ml -250 ml Exam PHYSICAL EXAMINATION GENERAL: Chronically ill-appearing gentleman on mechanical ventilation VITAL SIGNS: see below. HEENT: Pupils equal, round, and reactive to light. Tracheostomy site clean and intact. CARDIAC: S1, S2, 1/6 systolic ejection murmur CHEST: Diminished air entry bilaterally. ABDOMEN: Mildly distended. Bowel sounds present no guarding or rebound EXTREMITIES: No cyanosis, clubbing edema +1 NEUROLOGIC: Generalized weakness Results/Medications Result Diagram: 08/01/17 0605 08/01/17 0605 Results 24 hrs Laboratory Tests Test 08/01/17 01:03 08/01/17 06:05 08/01/17 08:50 Random Amikacin Level 5.0 White Blood Count 6.8 # Red Blood Count 2.80 L Hemoglobin 8.7 L Hematocrit 27.4 L Mean Corpuscular Volume 97.9 Mean Corpuscular Hemoglobin 31.1 Mean Corpuscular Hemoglobin Concent 31.8 L Red Cell Distribution Width 16.8 H Platelet Count 280 # Mean Platelet Volume 10.6 H Neutrophils % 68.7 Lymphocytes % 20.7 Monocytes % 5.6 Eosinophils % 3.8 Basophils % 0.6 Nucleated Red Blood Cells % 0.0 Neutrophils # 4.7 Lymphocytes # 1.4 Monocytes # 0.4 Eosinophils # 0.3 Basophils # 0.0 Nucleated Red Blood Cells # 0.0 Sodium Level 144 Potassium Level 4.5 Chloride Level 111 H Carbon Dioxide Level 22 Anion Gap 16 Blood Urea Nitrogen 10 Creatinine 0.35 L Glucose Level 94 Calcium Level 8.6 Lab Scanned Report REFERENCE LAB Medications Current Medications Lorazepam (Ativan) 0.5 mg Q6H PRN IV ANXIETY; Start 07/29/17 at 14:00 Acetaminophen (Tylenol Liquid) 650 mg Q6H PRN GTB PAIN LEVEL 1-3 OR FEVER; Start 07/29/17 at 14:00 Morphine Sulfate (morphine) 2 mg Q4H PRN IV PAIN LEVEL 7-10 Last administered on 07/31/17 21:12; Admin Dose 2 MG; Start 07/29/17 at 14:00 Famotidine (Pepcid) 20 mg Q12 GTB Last administered on 08/01/17 09:34; Admin Dose 20 MG; Start 07/29/17 at 21:00 Enoxaparin Sodium (Lovenox) 30 mg DAILY SC Last administered on 08/01/17 09: 50; Admin Dose 30 MG; Start 07/30/17 at 09:00 Albuterol (Proventil 0.083% (Neb)) 2.5 mg Q6 PRN NEB WHEEZING AND SOB; Start 07/29/17 at 14:30 Ascorbic Acid (Vitamin C) 500 mg DAILY GTB Last administered on 08/01/17 09: 34; Admin Dose 500 MG; Start 07/30/17 at 09:00 Baclofen (Lioresal) 10 mg BID GTB Last administered on 08/01/17 09:34; Admin Dose 10 MG; Start 07/29/17 at 21:00 Docusate Sodium (Colace Liquid Cup) 100 mg QHS PRN GTB CONSTIPATION; Start 07/29/17 at 14:30 Levetiracetam (Keppra Liquid) 1,000 mg Q8 GTB Last administered on 08/01/17 05:13; Admin Dose 1,000 MG; Start 07/29/17 at 22:00 Ferrous Sulfate (Feosol Liquid Cup) 300 mg DAILY GTB Last administered on 08/01 09:34; Admin Dose 300 MG; Start 07/30/17 at 09:00 Saccharomyces Boulardii 1 mg 1 mg DAILY GTB Last administered on 08/01/17 09: 34; Admin Dose 1 MG; Start 07/30/17 at 09:00 Potassium Chloride/Sodium Chloride (NS-KCl 20 Meq) 1,000 ml @ 100 mls/hr Q10H IV Last administered on 12/10/17at 21:28; Admin Dose 100 MLS/HR; Start at 14:30 Polyethylene Glycol 17 gm 17 gm DAILY PRN GTB CONSTIPATION; Start 07/29/17 at 14:30 Amikacin Sulfate/ Dextrose (Amikacin/D5W) 103 ml @ 102 mls/hr Q24H IVPB Last administered on 07/31/17 14:48; Admin Dose 102 MLS/HR; Start 07/31/17 at 15: 00 Amikacin Sulfate PER PHARMACY DOSING NOTE XX ; Start 07/31/17 at 14:30 Ampicillin (Ampicillin 1 Gm/ NS (Pmx)) 50 ml @ 100 mls/hr Q8 IVPB ; Start 07/08 at 14:00 Assessment/Plan Chief Complaint/Hosp Course IMP: 1. VDRF 2. UTI 3. Encephalopathy 4. s/p Nephrostomy tube dislodgement 5. Seizure D/O RECS: 1. Vent support 2. Abx per ID 3. BDs 4. TF/Free H20 DC planning okay from pulmonary standpoint Problems: BRANDON G[facility]MEZ MD, [facility] Aug 01, 2017 14:04
--- NOTE | 2017-08-01 14:48 | PN ---
DATE: 08/01/2017 SUBJECTIVE: The patient is nonverbal, noncommunicative, in no distress, no fevers overnight. LABORATORY DATA: WBC 6.8, platelets 280, no shift, no bands. BUN 10, creatinine 0.35. INDWELLINGS: Trach, PEG, suprapubic catheter. MICROBIOLOGY: Urine culture grew Pseudomonas aeruginosa and Enterococcus species susceptible to ampicillin. ALLERGIES: NONE. PHYSICAL EXAMINATION: GENERAL: Chronically ill-appearing, middle-aged man who is in persistent vegetative state. HEENT: Head atraumatic. Sclerae anicteric. Buccal mucosa dry. NECK: Supple. CHEST: Rise symmetrical. Breath sounds diminished to bases. HEART: S1, S2. ABDOMEN: Soft. Bowel tones present. ASSESSMENT: 1. Sepsis with fevers and leukocytosis on admission. 2. Recurrent polymicrobial urinary tract infection. 3. Neurogenic bladder with chronic suprapubic catheter. 4. Status post dislodged left nephrostomy tube, urology on case, no plan for replacement. 5. Persistent vegetative state. 6. Chronic respiratory failure and dysphagia. PLAN: The patient remains stable. He is on amikacin and IV vancomycin. We are going to change vancomycin to ampicillin. Continue amikacin. Continue vent management as per pulmonary. Follow urology recommendations. Dictated By: ERNESTO MCADAMS KNITTER OPERATOR for LUIS FERNANDO WORLEY/ZACKARY Conf#: [id number] DID#: [id number] MTDD
[2017-08-01] MEDS: NS + KCL 20 MEQ 1,000 ML IV SCH ×2 (15:16→22:02)
[2017-08-01] MEDS: AMPICILLIN 1 GM/NS (PMX) 50 ML IVPB SCH ×2 (15:16→22:03)
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
[2017-08-01] MEDS: AMIKACIN 750 MG in DEXTROSE 5% 100 ML IVPB SCH (17:26)
--- NOTE | 2017-08-01 18:39 | CONS ---
Date/Time of Note Date/Time of Note DATE: 08/01/17 TIME: 18:35 Consult Date/Type/Reason Admit Date/Time Jul 29, 2017 at 11:57 Initial Consult Date jul 2903/2017 Type of Consultation: Urology Reason for Consultation Hydronephrosis and dislodging of nephrostomy tube on the left side Ordering Provider: ELIANA MCKAY Subjective Patient is not communicative and is on a respirator Objective Vital Signs Date Time Temp Pulse Resp B/P Pulse Ox O2 Delivery O2 Flow Rate FiO2 08/01/17 17:20 112 20 97 30 08/01/17 15:50 99.0 138/89 07/30/17 00:45 Mechanical Ventilator Intake and Output 07/31/17 07/31/17 08/01/17 15:00 23:00 07:00 Intake Total 50 ml 2213 ml 1050 ml Output Total 900 ml 1300 ml Balance 50 ml 1313 ml -250 ml Exam Patient on a respirator, has a suprapubic tube that is draining clear urine. His creatinine is good and there is no suggestion to indicate that he needs any nephrostomy tube. Results/Medications Result Diagram: 08/01/1760408/01/17604 Results 24 hrs Laboratory Tests Test 08/01/17 01:03 08/01/17 06:05 08/01/17 08:50 Random Amikacin Level 5.0 White Blood Count 6.8 # Red Blood Count 2.80 L Hemoglobin 8.7 L Hematocrit 27.4 L Mean Corpuscular Volume 97.9 Mean Corpuscular Hemoglobin 31.1 Mean Corpuscular Hemoglobin Concent 31.8 L Red Cell Distribution Width 16.8 H Platelet Count 280 # Mean Platelet Volume 10.6 H Neutrophils % 68.7 Lymphocytes % 20.7 Monocytes % 5.6 Eosinophils % 3.8 Basophils % 0.6 Nucleated Red Blood Cells % 0.0 Neutrophils # 4.7 Lymphocytes # 1.4 Monocytes # 0.4 Eosinophils # 0.3 Basophils # 0.0 Nucleated Red Blood Cells # 0.0 Sodium Level 144 Potassium Level 4.5 Chloride Level 111 H Carbon Dioxide Level 22 Anion Gap 16 Blood Urea Nitrogen 10 Creatinine 0.35 L Glucose Level 94 Calcium Level 8.6 Lab Scanned Report REFERENCE LAB Medications Current Medications Lorazepam (Ativan) 0.5 mg Q6H PRN IV ANXIETY; Start 07/29/17 at 14:00 Acetaminophen (Tylenol Liquid) 650 mg Q6H PRN GTB PAIN LEVEL 1-3 OR FEVER; Start 07/29/17 at 14:00 Morphine Sulfate (morphine) 2 mg Q4H PRN IV PAIN LEVEL 7-10 Last administered on 07/31/17 21:12; Admin Dose 2 MG; Start 07/29/17 at 14:00 Famotidine (Pepcid) 20 mg Q12 GTB Last administered on 08/01/17 09:34; Admin Dose 20 MG; Start 07/29/17 at 21:00 Enoxaparin Sodium (Lovenox) 30 mg DAILY SC Last administered on 08/01/17 09: 50; Admin Dose 30 MG; Start 07/30/17 at 09:00 Albuterol (Proventil 0.083% (Neb)) 2.5 mg Q6 PRN NEB WHEEZING AND SOB; Start 07/29/17 at 14:30 Ascorbic Acid (Vitamin C) 500 mg DAILY GTB Last administered on 08/01/17 09: 34; Admin Dose 500 MG; Start 07/30/17 at 09:00 Baclofen (Lioresal) 10 mg BID GTB Last administered on 08/01/17 09:34; Admin Dose 10 MG; Start 07/29/17 at 21:00 Docusate Sodium (Colace Liquid Cup) 100 mg QHS PRN GTB CONSTIPATION; Start 07/29/17 at 14:30 Levetiracetam (Keppra Liquid) 1,000 mg Q8 GTB Last administered on 08/01/17 15:16; Admin Dose 1,000 MG; Start 07/29/17 at 22:00 Ferrous Sulfate (Feosol Liquid Cup) 300 mg DAILY GTB Last administered on 08/01 09:34; Admin Dose 300 MG; Start 07/30/17 at 09:00 Saccharomyces Boulardii 1 mg 1 mg DAILY GTB Last administered on 08/01/17 09: 34; Admin Dose 1 MG; Start 07/30/17 at 09:00 Potassium Chloride/Sodium Chloride (NS-KCl 20 Meq) 1,000 ml @ 100 mls/hr Q10H IV Last administered on 08/01/17 15:16; Admin Dose 100 MLS/HR; Start at 14:30 Polyethylene Glycol 17 gm 17 gm DAILY PRN GTB CONSTIPATION; Start 07/29/17 at 14:30 Amikacin Sulfate/ Dextrose (Amikacin/D5W) 103 ml @ 102 mls/hr Q24H IVPB Last administered on 08/01/17 17:26; Admin Dose 102 MLS/HR; Start 07/31/17 at 15: 00 Amikacin Sulfate PER PHARMACY DOSING NOTE XX ; Start 07/31/17 at 14:30 Ampicillin (Ampicillin 1 Gm/ NS (Pmx)) 50 ml @ 100 mls/hr Q8 IVPB Last administered on 08/01/17 15:16; Admin Dose 100 MLS/HR; Start 08/01/17 at 14: 00 Nystatin (Nystatin Susp) 5 ml QID PO ; Start 08/01/17 at 21:00 Assessment/Plan Chief Complaint/Hosp Course 41 year old male with respiratory failure and is on a respirator. He has a mild left hydronephrosis and there is no obstructing stones in the ureter. He had a left nephrostomy while in the [facility] and that came out.His renal function is normal. His creatinine is 0.35 and the urine culture showed Pseudomonas We'll observe and there is no need for any nephrostomy tube.Treat the infection. Problems: LAYLA BOLES MD Aug 01, 2017 18:39
[2017-08-01] MEDS: NYSTATIN SUSP 5 ML CUP PO SCH (22:03)
[2017-08-02] VITALS (24 sets, daily range): BP systolic 91–122; BP diastolic 56–83; PULSE 106–116; RESP 18–24
[2017-08-02] MEDS: LEVETIRACETAM (100 MG/ML) 5ML CUP GTB SCH ×3 (05:22→22:00)
[2017-08-02] MEDS: AMPICILLIN 1 GM/NS (PMX) 50 ML IVPB SCH ×3 (05:22→22:00)
[2017-08-02 07:09] LABS: BASOPHILS % 0.3 % (0.0-2.0); EOSINOPHILS # 0.2 10^3/ul (0.0-0.5); HEMATOCRIT 28.7 % (42.0-52.0); HEMOGLOBIN 9.4 g/dl (14.0-18.0); LYMPHOCYTES # 1.5 10^3/ul (0.8-2.9); LYMPHOCYTES % 17.6 % (15.0-51.0); MEAN CORPUSCULAR HEMOGLOBIN 30.6 pg (29.0-33.0); MEAN CORPUSCULAR HGB CONC 32.8 g/dl (32.0-37.0); MEAN CORPUSCULAR VOLUME 93.5 fl (82.0-101.0); MEAN PLATELET VOLUME 10.1 fl (7.4-10.4); MONOCYTE # 0.5 10^3/ul (0.3-0.9); MONOCYTES % 5.9 % (0.0-11.0); NEUTROPHIL # 6.4 10^3/ul (1.6-7.5); NEUTROPHILS % 73.7 % (39.0-77.0); PLATELET COUNT 306 10^3/UL (140-415); RED BLOOD COUNT 3.07 10^6/ul (4.70-6.10); RED CELL DISTRIBUTION WIDTH 16.5 % (11.5-14.5); WHITE BLOOD COUNT 8.7 10^3/ul (4.8-10.8)
[2017-08-02 07:45] LABS: CALCIUM 8.8 mg/dl (8.4-10.2); CREATININE 0.4 mg/dl (0.61-1.24); MAGNESIUM 1.8 mg/dl (1.7-2.5)
[2017-08-02] MEDS: NS + KCL 20 MEQ 1,000 ML IV SCH ×2 (08:30→15:19)
[2017-08-02] MEDS: NYSTATIN SUSP 5 ML CUP PO SCH ×4 (10:22→21:00)
[2017-08-02] MEDS: FAMOTIDINE 20 MG TAB GTB SCH ×2 (10:23→21:00)
[2017-08-02] MEDS: BACLOFEN 10 MG TAB GTB SCH ×2 (10:23→21:00)
[2017-08-02] MEDS: SACCHAROMYCES BOULARDII 250 MG CAP GTB SCH (10:23)
[2017-08-02] MEDS: FERROUS SULFATE 60 MG/ML 5ML CUP GTB SCH (10:23)
[2017-08-02] MEDS: ASCORBIC ACID 500 MG TAB GTB SCH (10:24)
[2017-08-02] MEDS: ENOXAPARIN 30 MG/0.3 ML SYG SC SCH (10:49)
--- NOTE | 2017-08-02 11:18 | CONS ---
Date/Time of Note Date/Time of Note DATE: 08/02/17 TIME: : Consult Date/Type/Reason Admit Date/Time Jul 29, 2017 at 11:57 Type of Consultation: Pulm Ordering Provider: ELIANA MCKAY Subjective Remains comfortable. Objective Vital Signs Date Time Temp Pulse Resp B/P Pulse Ox O2 Delivery O2 Flow Rate FiO2 08/02/17 09:15 107 20 98 30 08/02/17 07:53 99.8 122/83 07/30/17 00:45 Mechanical Ventilator Intake and Output 08/01/17 08/01/17 08/02/17 15:00 23:00 07:00 Intake Total 50 ml 1553 ml 1960 ml Output Total 1600 ml Balance 50 ml 1553 ml 360 ml Exam PHYSICAL EXAMINATION GENERAL: Chronically ill-appearing gentleman on mechanical ventilation VITAL SIGNS: see below. HEENT: Pupils equal, round, and reactive to light. Tracheostomy site clean and intact. CARDIAC: S1, S2, 1/6 systolic ejection murmur CHEST: Diminished air entry bilaterally. ABDOMEN: Mildly distended. Bowel sounds present no guarding or rebound EXTREMITIES: No cyanosis, clubbing edema +1 NEUROLOGIC: Generalized weakness Results/Medications Result Diagram: 08/02/17 0614 08/02/17 0614 Results 24 hrs Laboratory Tests Test 08/02/17 06:14 White Blood Count 8.7 # Red Blood Count 3.07 L Hemoglobin 9.4 L Hematocrit 28.7 L Mean Corpuscular Volume 93.5 Mean Corpuscular Hemoglobin 30.6 Mean Corpuscular Hemoglobin Concent 32.8 Red Cell Distribution Width 16.5 H Platelet Count 306 Mean Platelet Volume 10.1 Neutrophils % 73.7 Lymphocytes % 17.6 Monocytes % 5.9 Eosinophils % 2.0 Basophils % 0.3 Nucleated Red Blood Cells % 0.0 Neutrophils # 6.4 Lymphocytes # 1.5 Monocytes # 0.5 Eosinophils # 0.2 Basophils # 0.0 Nucleated Red Blood Cells # 0.0 Sodium Level 134 L Potassium Level 4.0 Chloride Level 100 # Carbon Dioxide Level 25 Anion Gap 13 Blood Urea Nitrogen 8 Creatinine 0.40 L Glucose Level 103 Calcium Level 8.8 Magnesium Level 1.8 Medications Current Medications Lorazepam (Ativan) 0.5 mg Q6H PRN IV ANXIETY; Start 07/29/17 at 14:00 Acetaminophen (Tylenol Liquid) 650 mg Q6H PRN GTB PAIN LEVEL 1-3 OR FEVER; Start 07/29/17 at 14:00 Morphine Sulfate (morphine) 2 mg Q4H PRN IV PAIN LEVEL 7-10 Last administered on 07/31/17 21:12; Admin Dose 2 MG; Start 07/29/17 at 14:00 Famotidine (Pepcid) 20 mg Q12 GTB Last administered on 08/02/17 10:23; Admin Dose 20 MG; Start 07/29/17 at 21:00 Enoxaparin Sodium (Lovenox) 30 mg DAILY SC Last administered on 08/02/17 10: 49; Admin Dose 30 MG; Start 07/30/17 at 09:00 Albuterol (Proventil 0.083% (Neb)) 2.5 mg Q6 PRN NEB WHEEZING AND SOB; Start 07/29/17 at 14:30 Ascorbic Acid (Vitamin C) 500 mg DAILY GTB Last administered on 08/02/17 10: 24; Admin Dose 500 MG; Start 07/30/17 at 09:00 Baclofen (Lioresal) 10 mg BID GTB Last administered on 08/02/17 10:23; Admin Dose 10 MG; Start 07/29/17 at 21:00 Docusate Sodium (Colace Liquid Cup) 100 mg QHS PRN GTB CONSTIPATION; Start 07/29/17 at 14:30 Levetiracetam (Keppra Liquid) 1,000 mg Q8 GTB Last administered on 08/02/17 05:22; Admin Dose 1,000 MG; Start 07/29/17 at 22:00 Ferrous Sulfate (Feosol Liquid Cup) 300 mg DAILY GTB Last administered on 08/02 10:23; Admin Dose 300 MG; Start 07/30/17 at 09:00 Saccharomyces Boulardii 1 mg 1 mg DAILY GTB Last administered on 08/02/17 10: 23; Admin Dose 1 MG; Start 07/30/17 at 09:00 Potassium Chloride/Sodium Chloride (NS-KCl 20 Meq) 1,000 ml @ 100 mls/hr Q10H IV Last administered on 08/01/17 22:02; Admin Dose 100 MLS/HR; Start at 14:30 Polyethylene Glycol 17 gm 17 gm DAILY PRN GTB CONSTIPATION; Start 07/29/17 at 14:30 Amikacin Sulfate/ Dextrose (Amikacin/D5W) 103 ml @ 102 mls/hr Q24H IVPB Last administered on 08/01/17 17:26; Admin Dose 102 MLS/HR; Start 07/31/17 at 15: 00 Amikacin Sulfate PER PHARMACY DOSING NOTE XX ; Start 07/31/17 at 14:30 Ampicillin (Ampicillin 1 Gm/ NS (Pmx)) 50 ml @ 100 mls/hr Q8 IVPB Last administered on 08/02/17 05:22; Admin Dose 100 MLS/HR; Start 08/01/17 at 14: 00 Nystatin (Nystatin Susp) 5 ml QID PO Last administered on 08/02/17 10:22; Admin Dose 5 ML; Start 08/01/17 at 21:00 Assessment/Plan Chief Complaint/Hosp Course IMP: 1. VDRF 2. UTI 3. Encephalopathy 4. s/p Nephrostomy tube dislodgement 5. Seizure D/O RECS: 1. Vent support 2. Abx per ID 3. BDs 4. TF/Free H20 DC planning okay from pulmonary standpoint Problems: BRANDON GÓMEZ MD, FCCP Aug 02, 2017 11:18
[2017-08-02] MEDS: morphine 2 MG INJ IV PRN (15:38)
[2017-08-02] MEDS: ACETAMINOPHEN 650MG/20.3ML CUP GTB PRN (15:38)
--- NOTE | 2017-08-02 15:51 | CONS ---
Date/Time of Note Date/Time of Note DATE: 08/02/17 TIME: 15:49 Assessment/Plan Assessment/Plan Chief Complaint/Hosp Course SUBJECTIVE: The patient is nonverbal, noncommunicative, in no distress, no fevers overnight. INDWELLINGS: Trach, PEG, suprapubic catheter. MICROBIOLOGY: Urine culture grew Pseudomonas aeruginosa and Enterococcus species susceptible to ampicillin. ALLERGIES: NONE. Abx: Ampicillin, Amikacin PHYSICAL EXAMINATION: GENERAL: Chronically ill-appearing, middle-aged man who is in persistent vegetative state. HEENT: Head atraumatic. Sclerae anicteric. Buccal mucosa dry. NECK: Supple. CHEST: Rise symmetrical. Breath sounds diminished to bases. HEART: S1, S2. ABDOMEN: Soft. Bowel tones present. ASSESSMENT: 1. Sepsis with fevers and leukocytosis on admission==> resolving. 2. Recurrent polymicrobial urinary tract infection. 3. Neurogenic bladder with chronic suprapubic catheter. 4. Status post dislodged left nephrostomy tube, urology on case, no plan for replacement. 5. Persistent vegetative state. 6. Chronic respiratory failure and dysphagia. PLAN: The patient remains stable. Continue present care, antibiotics follow urology recommendations dw staff Problems: Consultation Date/Type/Reason Admit Date/Time Jul 29, 2017 at 11:57 Initial Consult Date Type of Consultation: ID Referring Provider: ELIANA MCKAY Exam/Review of Systems Vital Signs Vitals Vital Signs Date Time Temp Pulse Resp B/P Pulse Ox O2 Delivery O2 Flow Rate FiO2 08/02/17 15:15 130 23 98 30 08/02/17 11:59 100.3 92/56 07/30/17 00:45 Mechanical Ventilator Intake and Output 08/01/17 08/01/17 08/02/17 15:00 23:00 07:00 Intake Total 50 ml 1553 ml 1960 ml Output Total 1600 ml Balance 50 ml 1553 ml 360 ml Results Result Diagram: 08/02/1714 08/02/1714 Results 24 hrs Laboratory Tests Test 08/02/17 06:14 White Blood Count 8.7 # Red Blood Count 3.07 L Hemoglobin 9.4 L Hematocrit 28.7 L Mean Corpuscular Volume 93.5 Mean Corpuscular Hemoglobin 30.6 Mean Corpuscular Hemoglobin Concent 32.8 Red Cell Distribution Width 16.5 H Platelet Count 306 Mean Platelet Volume 10.1 Neutrophils % 73.7 Lymphocytes % 17.6 Monocytes % 5.9 Eosinophils % 2.0 Basophils % 0.3 Nucleated Red Blood Cells % 0.0 Neutrophils # 6.4 Lymphocytes # 1.5 Monocytes # 0.5 Eosinophils # 0.2 Basophils # 0.0 Nucleated Red Blood Cells # 0.0 Sodium Level 134 L Potassium Level 4.0 Chloride Level 100 # Carbon Dioxide Level 25 Anion Gap 13 Blood Urea Nitrogen 8 Creatinine 0.40 L Glucose Level 103 Calcium Level 8.8 Magnesium Level 1.8 Medications Medications Current Medications Lorazepam (Ativan) 0.5 mg Q6H PRN IV ANXIETY; Start 07/29/17 at 14:00 Acetaminophen (Tylenol Liquid) 650 mg Q6H PRN GTB PAIN LEVEL 1-3 OR FEVER Last administered on 08/02/17 15:38; Admin Dose 650 MG; Start 07/29/17 at 14:00 Morphine Sulfate (morphine) 2 mg Q4H PRN IV PAIN LEVEL 7-10 Last administered on 08/02/17 15:38; Admin Dose 2 MG; Start 07/29/17 at 14:00 Famotidine (Pepcid) 20 mg Q12 GTB Last administered on 08/02/17 10:23; Admin Dose 20 MG; Start 07/29/17 at 21:00 Enoxaparin Sodium (Lovenox) 30 mg DAILY SC Last administered on 08/02/17 10: 49; Admin Dose 30 MG; Start 07/30/17 at 09:00 Albuterol (Proventil 0.083% (Neb)) 2.5 mg Q6 PRN NEB WHEEZING AND SOB; Start 07/29/17 at 14:30 Ascorbic Acid (Vitamin C) 500 mg DAILY GTB Last administered on 08/02/17 10: 24; Admin Dose 500 MG; Start 07/30/17 at 09:00 Baclofen (Lioresal) 10 mg BID GTB Last administered on 08/02/17 10:23; Admin Dose 10 MG; Start 07/29/17 at 21:00 Docusate Sodium (Colace Liquid Cup) 100 mg QHS PRN GTB CONSTIPATION; Start 07/29/17 at 14:30 Levetiracetam (Keppra Liquid) 1,000 mg Q8 GTB Last administered on 08/02/17 15:18; Admin Dose 1,000 MG; Start 07/29/17 at 22:00 Ferrous Sulfate (Feosol Liquid Cup) 300 mg DAILY GTB Last administered on 08/02 10:23; Admin Dose 300 MG; Start 07/30/17 at 09:00 Saccharomyces Boulardii 1 mg 1 mg DAILY GTB Last administered on 08/02/17 10: 23; Admin Dose 1 MG; Start 07/30/17 at 09:00 Potassium Chloride/Sodium Chloride (NS-KCl 20 Meq) 1,000 ml @ 100 mls/hr Q10H IV Last administered on 08/02/17 15:19; Admin Dose 100 MLS/HR; Start at 14:30 Polyethylene Glycol (Miralax) 17 gm DAILY PRN GTB CONSTIPATION; Start 07/29/17 at 14:30 Amikacin Sulfate PER PHARMACY DOSING NOTE XX ; Start 07/31/17 at 14:30 Ampicillin (Ampicillin 1 Gm/ NS (Pmx)) 50 ml @ 100 mls/hr Q8 IVPB Last administered on 08/02/17 15:19; Admin Dose 100 MLS/HR; Start 08/01/17 at 14: 00 Nystatin 5 ml 5 ml QID PO Last administered on 08/02/17 15:19; Admin Dose 5 ML; Start 08/01/17 at 21:00 Amikacin Sulfate/ Dextrose (Amikacin/D5W) 103 ml @ 103 mls/hr Q24H IVPB ; Start 08/02/17 at 17:00 Miscellaneous Information (*Rx Drug Level Order Reminder*) 1 ONCE ONCE XX ; Start 08/02/17 at 16:00; Stop 08/02/17 at 16:01 ERNESTO MCADAMS NP Aug 02, 2017 15:51
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
[2017-08-02] MEDS: AMIKACIN 750 MG in DEXTROSE 5% 100 ML IVPB SCH (17:00)
--- NOTE | 2017-08-02 20:03 | CONS ---
Date/Time of Note Date/Time of Note DATE: 08/02/17 TIME: 20:01 Consult Date/Type/Reason Admit Date/Time Jul 29, 2017 at 11:57 Initial Consult Date jul 2903/2017 Type of Consultation: Urology Reason for Consultation Dislodged left nephrostomy tube Ordering Provider: ELIANA MCKAY Subjective Patient not capable of communicating verbally Objective Vital Signs Date Time Temp Pulse Resp B/P Pulse Ox O2 Delivery O2 Flow Rate FiO2 08/02/17 19:34 115 24 99 30 08/02/17 17:10 99.8 08/02/17 15:50 104/65 07/30/17 00:45 Mechanical Ventilator Intake and Output 08/01/17 08/01/17 08/02/17 14:59 22:59 06:59 Intake Total 50 ml 1553 ml 1960 ml Output Total 1600 ml Balance 50 ml 1553 ml 360 ml Exam He has been restless since last night. He has tracheostomy and is on respirator , has a G-tube and feeding through that. He does have also a suprapubic tube that is draining clear urine. His renal function has been stable. Results/Medications Result Diagram: 08/02/1714 08/02/17 0614 Results 24 hrs Laboratory Tests Test 08/02/17 06:14 White Blood Count 8.7 # Red Blood Count 3.07 L Hemoglobin 9.4 L Hematocrit 28.7 L Mean Corpuscular Volume 93.5 Mean Corpuscular Hemoglobin 30.6 Mean Corpuscular Hemoglobin Concent 32.8 Red Cell Distribution Width 16.5 H Platelet Count 306 Mean Platelet Volume 10.1 Neutrophils % 73.7 Lymphocytes % 17.6 Monocytes % 5.9 Eosinophils % 2.0 Basophils % 0.3 Nucleated Red Blood Cells % 0.0 Neutrophils # 6.4 Lymphocytes # 1.5 Monocytes # 0.5 Eosinophils # 0.2 Basophils # 0.0 Nucleated Red Blood Cells # 0.0 Sodium Level 134 L Potassium Level 4.0 Chloride Level 100 # Carbon Dioxide Level 25 Anion Gap 13 Blood Urea Nitrogen 8 Creatinine 0.40 L Glucose Level 103 Calcium Level 8.8 Magnesium Level 1.8 Medications Current Medications Lorazepam (Ativan) 0.5 mg Q6H PRN IV ANXIETY; Start 07/29/17 at 14:00 Acetaminophen (Tylenol Liquid) 650 mg Q6H PRN GTB PAIN LEVEL 1-3 OR FEVER Last administered on 08/02/17 15:38; Admin Dose 650 MG; Start 07/29/17 at 14:00 Morphine Sulfate (morphine) 2 mg Q4H PRN IV PAIN LEVEL 7-10 Last administered on 08/02/17 15:38; Admin Dose 2 MG; Start 07/29/17 at 14:00 Famotidine (Pepcid) 20 mg Q12 GTB Last administered on 08/02/17 10:23; Admin Dose 20 MG; Start 07/29/17 at 21:00 Enoxaparin Sodium (Lovenox) 30 mg DAILY SC Last administered on 08/02/17 10: 49; Admin Dose 30 MG; Start 07/30/17 at 09:00 Albuterol (Proventil 0.083% (Neb)) 2.5 mg Q6 PRN NEB WHEEZING AND SOB; Start 07/29/17 at 14:30 Ascorbic Acid (Vitamin C) 500 mg DAILY GTB Last administered on 08/02/17 10: 24; Admin Dose 500 MG; Start 07/30/17 at 09:00 Baclofen (Lioresal) 10 mg BID GTB Last administered on 08/02/17 10:23; Admin Dose 10 MG; Start 07/29/17 at 21:00 Docusate Sodium (Colace Liquid Cup) 100 mg QHS PRN GTB CONSTIPATION; Start 07/29/17 at 14:30 Levetiracetam (Keppra Liquid) 1,000 mg Q8 GTB Last administered on 08/02/17 15:18; Admin Dose 1,000 MG; Start 07/29/17 at 22:00 Ferrous Sulfate (Feosol Liquid Cup) 300 mg DAILY GTB Last administered on 08/02 10:23; Admin Dose 300 MG; Start 07/30/17 at 09:00 Saccharomyces Boulardii 1 mg 1 mg DAILY GTB Last administered on 08/02/17 10: 23; Admin Dose 1 MG; Start 07/30/17 at 09:00 Potassium Chloride/Sodium Chloride (NS-KCl 20 Meq) 1,000 ml @ 100 mls/hr Q10H IV Last administered on 08/02/17 15:19; Admin Dose 100 MLS/HR; Start at 14:30 Polyethylene Glycol (Miralax) 17 gm DAILY PRN GTB CONSTIPATION; Start 07/29/17 at 14:30 Amikacin Sulfate PER PHARMACY DOSING NOTE XX ; Start 07/31/17 at 14:30 Ampicillin (Ampicillin 1 Gm/ NS (Pmx)) 50 ml @ 100 mls/hr Q8 IVPB Last administered on 08/02/17 15:19; Admin Dose 100 MLS/HR; Start 08/01/17 at 14: 00 Nystatin 5 ml 5 ml QID PO Last administered on 08/02/17 18:01; Admin Dose 5 ML; Start 08/01/17 at 21:00 Amikacin Sulfate/ Dextrose (Amikacin/D5W) 103 ml @ 103 mls/hr Q24H IVPB Last administered on 08/02/17 17:00; Admin Dose 103 MLS/HR; Start 08/02/17 at 17: 00 Assessment/Plan Chief Complaint/Hosp Course 41 year old male with respiratory failure and is on a respirator. He has a G- tube. he has a mild left hydronephrosis and there is no obstructing stones in the ureter. He had a left nephrostomy while in the [facility] and that came out.His renal function is normal. His creatinine is 0.40 and the urine culture showed Pseudomonas We'll observe and there is no need for any nephrostomy tube.Treat the infection. Problems: LAYLA BOLES MD Aug 02, 2017 20:03
--- NOTE | 2017-08-02 21:47 | RADRPT ---
Vent Rate: 115 bpm RR Interval: [address] Interval: 118 msec QRS Duration: 84 msec QT Interval: 336 msec QTC Interval: 464 msec P-R-T [place]: 84 - 52 - 85 degrees Sinus tachycardia Possible Lateral infarct , age undetermined Abnormal ECG Electronically Signed By: Gilberto Her [id number]
[2017-08-03] VITALS (23 sets, daily range): BP systolic 93–135; BP diastolic 54–75; PULSE 85–112; RESP 14–22
[2017-08-03] MEDS: ACETAMINOPHEN 650MG/20.3ML CUP GTB PRN ×2 (01:07→21:51)
[2017-08-03] MEDS: NS + KCL 20 MEQ 1,000 ML IV SCH ×2 (04:30→14:09)
[2017-08-03] MEDS: LEVETIRACETAM (100 MG/ML) 5ML CUP GTB SCH ×3 (06:05→21:06)
[2017-08-03] MEDS: AMPICILLIN 1 GM/NS (PMX) 50 ML IVPB SCH ×3 (06:05→21:06)
[2017-08-03 08:54] LABS: BASOPHILS % 0.3 % (0.0-2.0); EOSINOPHILS % 0.3 % (0.0-7.0); HEMOGLOBIN 8.6 g/dl (14.0-18.0); LYMPHOCYTES % 19.8 % (15.0-51.0); MEAN CORPUSCULAR HEMOGLOBIN 30.6 pg (29.0-33.0); MEAN CORPUSCULAR HGB CONC 33.1 g/dl (32.0-37.0); MEAN CORPUSCULAR VOLUME 92.5 fl (82.0-101.0); MEAN PLATELET VOLUME 9.9 fl (7.4-10.4); MONOCYTE # 0.7 10^3/ul (0.3-0.9); MONOCYTES % 6.5 % (0.0-11.0); NEUTROPHIL # 7.3 10^3/ul (1.6-7.5); NEUTROPHILS % 72.6 % (39.0-77.0); PLATELET COUNT 315 10^3/UL (140-415); RED BLOOD COUNT 2.81 10^6/ul (4.70-6.10); RED CELL DISTRIBUTION WIDTH 16.7 % (11.5-14.5)
[2017-08-03 08:56] LABS: CALCIUM 8.9 mg/dl (8.4-10.2); CREATININE 0.44 mg/dl (0.61-1.24); POTASSIUM 3.9 mmol/L (3.5-5.1)
[2017-08-03] MEDS: BACLOFEN 10 MG TAB GTB SCH ×2 (09:46→21:06)
[2017-08-03] MEDS: FAMOTIDINE 20 MG TAB GTB SCH ×2 (09:46→21:06)
[2017-08-03] MEDS: SACCHAROMYCES BOULARDII 250 MG CAP GTB SCH (09:46)
[2017-08-03] MEDS: FERROUS SULFATE 60 MG/ML 5ML CUP GTB SCH (09:46)
[2017-08-03] MEDS: NYSTATIN SUSP 5 ML CUP PO SCH ×4 (09:46→21:05)
[2017-08-03] MEDS: ASCORBIC ACID 500 MG TAB GTB SCH (09:46)
[2017-08-03] MEDS: ENOXAPARIN 30 MG/0.3 ML SYG SC SCH (09:48)
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
--- NOTE | 2017-08-03 12:30 | CONS ---
Date/Time of Note Date/Time of Note DATE: 08/03/17 TIME: 12:30 Consult Date/Type/Reason Admit Date/Time Jul 29, 2017 at 11:57 Type of Consultation: Pulm Ordering Provider: ELIANA MCKAY Subjective Comfortable. Objective Vital Signs Date Time Temp Pulse Resp B/P Pulse Ox O2 Delivery O2 Flow Rate FiO2 08/03/17 11:53 99.9 91 18 111/70 97 08/03/17 05:10 30 Intake and Output 08/02/17 08/02/17 08/03/17 14:59 22:59 06:59 Intake Total 2208 ml 1200 ml Output Total 1900 ml 900 ml Balance 308 ml 300 ml Exam PHYSICAL EXAMINATION GENERAL: Chronically ill-appearing gentleman on mechanical ventilation VITAL SIGNS: see below. HEENT: Pupils equal, round, and reactive to light. Tracheostomy site clean and intact. CARDIAC: S1, S2, 1/6 systolic ejection murmur CHEST: Diminished air entry bilaterally. ABDOMEN: Mildly distended. Bowel sounds present no guarding or rebound EXTREMITIES: No cyanosis, clubbing edema +1 NEUROLOGIC: Generalized weakness Results/Medications Result Diagram: 08/03/17 0801 08/03/17 0801 Results 24 hrs Laboratory Tests Test 08/02/17 16:10 08/03/17 08:01 Amikacin Level Trough <2.5 L White Blood Count 10.0 Red Blood Count 2.81 L Hemoglobin 8.6 L Hematocrit 26.0 L Mean Corpuscular Volume 92.5 Mean Corpuscular Hemoglobin 30.6 Mean Corpuscular Hemoglobin Concent 33.1 Red Cell Distribution Width 16.7 H Platelet Count 315 Mean Platelet Volume 9.9 Neutrophils % 72.6 Lymphocytes % 19.8 Monocytes % 6.5 Eosinophils % 0.3 Basophils % 0.3 Nucleated Red Blood Cells % 0.0 Neutrophils # 7.3 Lymphocytes # 2.0 Monocytes # 0.7 Eosinophils # 0.0 Basophils # 0.0 Nucleated Red Blood Cells # 0.0 Sodium Level 133 L Potassium Level 3.9 Chloride Level 98 Carbon Dioxide Level 25 Anion Gap 14 Blood Urea Nitrogen 11 Creatinine 0.44 L Glucose Level 125 Calcium Level 8.9 Medications Current Medications Lorazepam (Ativan) 0.5 mg Q6H PRN IV ANXIETY; Start 07/29/17 at 14:00 Acetaminophen (Tylenol Liquid) 650 mg Q6H PRN GTB PAIN LEVEL 1-3 OR FEVER Last administered on 08/03/17 01:07; Admin Dose 650 MG; Start 07/29/17 at 14:00 Morphine Sulfate (morphine) 2 mg Q4H PRN IV PAIN LEVEL 7-10 Last administered on 08/02/17 15:38; Admin Dose 2 MG; Start 07/29/17 at 14:00 Famotidine (Pepcid) 20 mg Q12 GTB Last administered on 08/03/17 09:46; Admin Dose 20 MG; Start 07/29/17 at 21:00 Enoxaparin Sodium (Lovenox) 30 mg DAILY SC Last administered on 08/03/17 09: 48; Admin Dose 30 MG; Start 07/30/17 at 09:00 Albuterol (Proventil 0.083% (Neb)) 2.5 mg Q6 PRN NEB WHEEZING AND SOB; Start 07/29/17 at 14:30 Ascorbic Acid (Vitamin C) 500 mg DAILY GTB Last administered on 08/03/17 09: 46; Admin Dose 500 MG; Start 07/30/17 at 09:00 Baclofen (Lioresal) 10 mg BID GTB Last administered on 08/03/17 09:46; Admin Dose 10 MG; Start 07/29/17 at 21:00 Docusate Sodium (Colace Liquid Cup) 100 mg QHS PRN GTB CONSTIPATION; Start 07/29/17 at 14:30 Levetiracetam (Keppra Liquid) 1,000 mg Q8 GTB Last administered on 08/03/17 06:05; Admin Dose 1,000 MG; Start 07/29/17 at 22:00 Ferrous Sulfate (Feosol Liquid Cup) 300 mg DAILY GTB Last administered on 08/03 09:46; Admin Dose 300 MG; Start 07/30/17 at 09:00 Saccharomyces Boulardii 1 mg 1 mg DAILY GTB Last administered on 08/03/17 09: 46; Admin Dose 1 MG; Start 07/30/17 at 09:00 Potassium Chloride/Sodium Chloride (NS-KCl 20 Meq) 1,000 ml @ 100 mls/hr Q10H IV Last administered on 08/03/17 04:30; Admin Dose 100 MLS/HR; Start at 14:30 Polyethylene Glycol (Miralax) 17 gm DAILY PRN GTB CONSTIPATION; Start 07/29/17 at 14:30 Amikacin Sulfate PER PHARMACY DOSING NOTE XX ; Start 07/31/17 at 14:30 Ampicillin (Ampicillin 1 Gm/ NS (Pmx)) 50 ml @ 100 mls/hr Q8 IVPB Last administered on 08/03/17 06:05; Admin Dose 100 MLS/HR; Start 08/01/17 at 14: 00 Nystatin 5 ml 5 ml QID PO Last administered on 08/03/17 09:46; Admin Dose 5 ML; Start 08/01/17 at 21:00 Amikacin Sulfate/ Dextrose (Amikacin/D5W) 103 ml @ 103 mls/hr Q24H IVPB Last administered on 08/02/17 17:00; Admin Dose 103 MLS/HR; Start 08/02/17 at 17: 00 Assessment/Plan Chief Complaint/Hosp Course IMP: 1. VDRF 2. UTI 3. Encephalopathy 4. s/p Nephrostomy tube dislodgement 5. Seizure D/O RECS: 1. Vent support 2. Abx per ID 3. BDs 4. TF/Free H20 DC planning okay from pulmonary standpoint Problems: BRANDON GÓMEZ MD, [facility] Aug 03, 2017 12:30
[2017-08-03] MEDS: AMIKACIN 750 MG in DEXTROSE 5% 100 ML IVPB SCH (17:28)
--- NOTE | 2017-08-03 19:44 | CONS ---
Date/Time of Note Date/Time of Note DATE: 08/03/17 TIME: 19:42 Assessment/Plan Assessment/Plan Chief Complaint/Hosp Course SUBJECTIVE: No acute events per repot, the patient is nonverbal, noncommunicative, in no distress, no fevers overnight. INDWELLINGS: Trach, PEG, suprapubic catheter. MICROBIOLOGY: Urine culture grew Pseudomonas aeruginosa and Enterococcus species susceptible to ampicillin. ALLERGIES: NONE. Abx: Ampicillin, Amikacin PHYSICAL EXAMINATION: GENERAL: Chronically ill-appearing, middle-aged man who is in persistent vegetative state. HEENT: Head atraumatic. Sclerae anicteric. Buccal mucosa dry. NECK: Supple. CHEST: Rise symmetrical. Breath sounds diminished to bases. HEART: S1, S2. ABDOMEN: Soft. Bowel tones present. ASSESSMENT: 1. S/p sepsis with fevers and leukocytosis on admission 2. Recurrent polymicrobial urinary tract infection. 3. Neurogenic bladder with chronic suprapubic catheter. 4. Status post dislodged left nephrostomy tube, urology on case, no plan for replacement. 5. Persistent vegetative state. 6. Chronic respiratory failure and dysphagia. PLAN: The patient remains stable. Continue present care, antibiotics, follow urology recommendations==> no need for nephrostomy placement dw staff Problems: Consultation Date/Type/Reason Admit Date/Time Jul 29, 2017 at 11:57 Type of Consultation: id Referring Provider: ELIANA MCKAY Exam/Review of Systems Vital Signs Vitals Vital Signs Date Time Temp Pulse Resp B/P Pulse Ox O2 Delivery O2 Flow Rate FiO2 08/03/17 17:20 99 17 100 30 08/03/17 16:10 99.8 115/70 Intake and Output 08/02/17 08/02/17 08/03/17 15:00 23:00 07:00 Intake Total 2208 ml 1200 ml Output Total 1900 ml 900 ml Balance 308 ml 300 ml Results Result Diagram: 08/03/17 0801 08/03/17 0801 Results 24 hrs Laboratory Tests Test 08/03/17 08:01 White Blood Count 10.0 Red Blood Count 2.81 L Hemoglobin 8.6 L Hematocrit 26.0 L Mean Corpuscular Volume 92.5 Mean Corpuscular Hemoglobin 30.6 Mean Corpuscular Hemoglobin Concent 33.1 Red Cell Distribution Width 16.7 H Platelet Count 315 Mean Platelet Volume 9.9 Neutrophils % 72.6 Lymphocytes % 19.8 Monocytes % 6.5 Eosinophils % 0.3 Basophils % 0.3 Nucleated Red Blood Cells % 0.0 Neutrophils # 7.3 Lymphocytes # 2.0 Monocytes # 0.7 Eosinophils # 0.0 Basophils # 0.0 Nucleated Red Blood Cells # 0.0 Sodium Level 133 L Potassium Level 3.9 Chloride Level 98 Carbon Dioxide Level 25 Anion Gap 14 Blood Urea Nitrogen 11 Creatinine 0.44 L Glucose Level 125 Calcium Level 8.9 Medications Medications Current Medications Lorazepam (Ativan) 0.5 mg Q6H PRN IV ANXIETY; Start 07/29/17 at 14:00 Acetaminophen (Tylenol Liquid) 650 mg Q6H PRN GTB PAIN LEVEL 1-3 OR FEVER Last administered on 08/03/17 01:07; Admin Dose 650 MG; Start 07/29/17 at 14:00 Morphine Sulfate (morphine) 2 mg Q4H PRN IV PAIN LEVEL 7-10 Last administered on 08/02/17 15:38; Admin Dose 2 MG; Start 07/29/17 at 14:00 Famotidine (Pepcid) 20 mg Q12 GTB Last administered on 08/03/17 09:46; Admin Dose 20 MG; Start 07/29/17 at 21:00 Enoxaparin Sodium (Lovenox) 30 mg DAILY SC Last administered on 08/03/17 09: 48; Admin Dose 30 MG; Start 07/30/17 at 09:00 Albuterol (Proventil 0.083% (Neb)) 2.5 mg Q6 PRN NEB WHEEZING AND SOB; Start 07/29/17 at 14:30 Ascorbic Acid (Vitamin C) 500 mg DAILY GTB Last administered on 08/03/17 09: 46; Admin Dose 500 MG; Start 07/30/17 at 09:00 Baclofen (Lioresal) 10 mg BID GTB Last administered on 08/03/17 09:46; Admin Dose 10 MG; Start 07/29/17 at 21:00 Docusate Sodium (Colace Liquid Cup) 100 mg QHS PRN GTB CONSTIPATION; Start 07/29/17 at 14:30 Levetiracetam (Keppra Liquid) 1,000 mg Q8 GTB Last administered on 08/03/17 14:09; Admin Dose 1,000 MG; Start 07/29/17 at 22:00 Ferrous Sulfate (Feosol Liquid Cup) 300 mg DAILY GTB Last administered on 08/03 09:46; Admin Dose 300 MG; Start 07/30/17 at 09:00 Saccharomyces Boulardii 1 mg 1 mg DAILY GTB Last administered on 08/03/17 09: 46; Admin Dose 1 MG; Start 07/30/17 at 09:00 Potassium Chloride/Sodium Chloride (NS-KCl 20 Meq) 1,000 ml @ 100 mls/hr Q10H IV Last administered on 08/03/17 14:09; Admin Dose 100 MLS/HR; Start at 14:30 Polyethylene Glycol (Miralax) 17 gm DAILY PRN GTB CONSTIPATION; Start 07/29/17 at 14:30 Amikacin Sulfate PER PHARMACY DOSING NOTE XX ; Start 07/31/17 at 14:30 Ampicillin (Ampicillin 1 Gm/ NS (Pmx)) 50 ml @ 100 mls/hr Q8 IVPB Last administered on 08/03/17 14:07; Admin Dose 100 MLS/HR; Start 08/01/17 at 14: 00 Nystatin 5 ml 5 ml QID PO Last administered on 08/03/17 17:22; Admin Dose 5 ML; Start 08/01/17 at 21:00 Amikacin Sulfate/ Dextrose (Amikacin/D5W) 103 ml @ 103 mls/hr Q24H IVPB Last administered on 08/03/17 17:28; Admin Dose 103 MLS/HR; Start 08/02/17 at 17: 00 ERNESTO MCADAMS NP Aug 03, 2017 19:44
[2017-08-04] VITALS (23 sets, daily range): BP systolic 91–145; BP diastolic 57–76; PULSE 57–114; RESP 14–22
[2017-08-04] MEDS: NS + KCL 20 MEQ 1,000 ML IV SCH ×4 (00:30→16:24)
[2017-08-04] MEDS: LEVETIRACETAM (100 MG/ML) 5ML CUP GTB SCH ×3 (05:46→21:39)
[2017-08-04] MEDS: AMPICILLIN 1 GM/NS (PMX) 50 ML IVPB SCH ×3 (05:46→21:39)
[2017-08-04] MEDS: ACETAMINOPHEN 650MG/20.3ML CUP GTB PRN (05:52)
[2017-08-04] MEDS: FERROUS SULFATE 60 MG/ML 5ML CUP GTB SCH (08:45)
[2017-08-04] MEDS: NYSTATIN SUSP 5 ML CUP PO SCH ×4 (08:45→21:39)
[2017-08-04] MEDS: FAMOTIDINE 20 MG TAB GTB SCH ×2 (08:46→21:39)
[2017-08-04] MEDS: BACLOFEN 10 MG TAB GTB SCH ×2 (08:46→21:39)
[2017-08-04] MEDS: ASCORBIC ACID 500 MG TAB GTB SCH (08:46)
[2017-08-04] MEDS: SACCHAROMYCES BOULARDII 250 MG CAP GTB SCH (08:46)
[2017-08-04] MEDS: ENOXAPARIN 30 MG/0.3 ML SYG SC SCH (08:48)
[2017-08-04 09:24] LABS: BASOPHIL # 0.1 10^3/ul (0.0-0.1); BASOPHILS % 0.4 % (0.0-2.0); EOSINOPHILS # 0.1 10^3/ul (0.0-0.5); EOSINOPHILS % 0.4 % (0.0-7.0); HEMATOCRIT 27.4 % (42.0-52.0); LYMPHOCYTES # 1.9 10^3/ul (0.8-2.9); LYMPHOCYTES % 12.3 % (15.0-51.0); MEAN CORPUSCULAR HEMOGLOBIN 30.7 pg (29.0-33.0); MEAN CORPUSCULAR HGB CONC 32.8 g/dl (32.0-37.0); MEAN CORPUSCULAR VOLUME 93.5 fl (82.0-101.0); MONOCYTE # 1.2 10^3/ul (0.3-0.9); MONOCYTES % 7.5 % (0.0-11.0); NEUTROPHIL # 12.5 10^3/ul (1.6-7.5); NEUTROPHILS % 78.7 % (39.0-77.0); PLATELET COUNT 296 10^3/UL (140-415); RED BLOOD COUNT 2.93 10^6/ul (4.70-6.10); RED CELL DISTRIBUTION WIDTH 16.8 % (11.5-14.5); WHITE BLOOD COUNT 15.8 10^3/ul (4.8-10.8)
[2017-08-04 09:43] LABS: CALCIUM 8.6 mg/dl (8.4-10.2); CREATININE 0.43 mg/dl (0.61-1.24); POTASSIUM 3.8 mmol/L (3.5-5.1)
--- NOTE | 2017-08-04 12:45 | CONS ---
Date/Time of Note Date/Time of Note DATE: 08/04/17 TIME: 12:45 Consult Date/Type/Reason Admit Date/Time Jul 29, 2017 at 11:57 Type of Consultation: Pulm Ordering Provider: ELIANA MCKAY Subjective Comfortable. Objective Vital Signs Date Time Temp Pulse Resp B/P Pulse Ox O2 Delivery O2 Flow Rate FiO2 08/04/17 11:46 98.2 95 17 103/68 99 08/04/17 08:05 30 Intake and Output 08/03/17 08/03/17 08/04/17 15:00 23:00 07:00 Intake Total 1410 ml 1305 ml Output Total 1500 ml 600 ml Balance -90 ml 705 ml Exam PHYSICAL EXAMINATION GENERAL: Chronically ill-appearing gentleman on mechanical ventilation VITAL SIGNS: see below. HEENT: Pupils equal, round, and reactive to light. Tracheostomy site clean and intact. CARDIAC: S1, S2, 1/6 systolic ejection murmur CHEST: Diminished air entry bilaterally. ABDOMEN: Mildly distended. Bowel sounds present no guarding or rebound EXTREMITIES: No cyanosis, clubbing edema +1 NEUROLOGIC: Generalized weakness Results/Medications Result Diagram: 08/04/17 0840 08/04/17 0840 Results 24 hrs Laboratory Tests Test 08/04/17 08:40 White Blood Count 15.8 #H Red Blood Count 2.93 L Hemoglobin 9.0 L Hematocrit 27.4 L Mean Corpuscular Volume 93.5 Mean Corpuscular Hemoglobin 30.7 Mean Corpuscular Hemoglobin Concent 32.8 Red Cell Distribution Width 16.8 H Platelet Count 296 Mean Platelet Volume 10.0 Neutrophils % 78.7 H Lymphocytes % 12.3 L Monocytes % 7.5 Eosinophils % 0.4 Basophils % 0.4 Nucleated Red Blood Cells % 0.0 Neutrophils # 12.5 H Lymphocytes # 1.9 Monocytes # 1.2 H Eosinophils # 0.1 Basophils # 0.1 Nucleated Red Blood Cells # 0.0 Sodium Level 132 L Potassium Level 3.8 Chloride Level 97 Carbon Dioxide Level 24 Anion Gap 15 Blood Urea Nitrogen 15 Creatinine 0.43 L Glucose Level 129 Calcium Level 8.6 Medications Current Medications Lorazepam (Ativan) 0.5 mg Q6H PRN IV ANXIETY; Start 07/29/17 at 14:00 Acetaminophen (Tylenol Liquid) 650 mg Q6H PRN GTB PAIN LEVEL 1-3 OR FEVER Last administered on 08/04/17 05:52; Admin Dose 650 MG; Start 07/29/17 at 14:00 Morphine Sulfate (morphine) 2 mg Q4H PRN IV PAIN LEVEL 7-10 Last administered on 08/02/17 15:38; Admin Dose 2 MG; Start 07/29/17 at 14:00 Famotidine (Pepcid) 20 mg Q12 GTB Last administered on 08/04/17 08:46; Admin Dose 20 MG; Start 07/29/17 at 21:00 Enoxaparin Sodium (Lovenox) 30 mg DAILY SC Last administered on 08/04/17 08: 48; Admin Dose 30 MG; Start 07/30/17 at 09:00 Albuterol (Proventil 0.083% (Neb)) 2.5 mg Q6 PRN NEB WHEEZING AND SOB; Start 07/29/17 at 14:30 Ascorbic Acid (Vitamin C) 500 mg DAILY GTB Last administered on 08/04/17 08: 46; Admin Dose 500 MG; Start 07/30/17 at 09:00 Baclofen (Lioresal) 10 mg BID GTB Last administered on 08/04/17 08:46; Admin Dose 10 MG; Start 07/29/17 at 21:00 Docusate Sodium (Colace Liquid Cup) 100 mg QHS PRN GTB CONSTIPATION; Start 07/29/17 at 14:30 Levetiracetam (Keppra Liquid) 1,000 mg Q8 GTB Last administered on 08/04/17 05:46; Admin Dose 1,000 MG; Start 07/29/17 at 22:00 Ferrous Sulfate (Feosol Liquid Cup) 300 mg DAILY GTB Last administered on 08/04 08:45; Admin Dose 300 MG; Start 07/30/17 at 09:00 Saccharomyces Boulardii 1 mg 1 mg DAILY GTB Last administered on 08/04/17 08: 46; Admin Dose 1 MG; Start 07/30/17 at 09:00 Potassium Chloride/Sodium Chloride (NS-KCl 20 Meq) 1,000 ml @ 100 mls/hr Q10H IV Last administered on 08/04/17 03:14; Admin Dose 100 MLS/HR; Start at 14:30 Polyethylene Glycol (Miralax) 17 gm DAILY PRN GTB CONSTIPATION; Start 07/29/17 at 14:30 Amikacin Sulfate PER PHARMACY DOSING NOTE XX ; Start 07/31/17 at 14:30 Ampicillin (Ampicillin 1 Gm/ NS (Pmx)) 50 ml @ 100 mls/hr Q8 IVPB Last administered on 08/04/17 05:46; Admin Dose 100 MLS/HR; Start 08/01/17 at 14: 00 Nystatin 5 ml 5 ml QID PO Last administered on 08/04/17 08:45; Admin Dose 5 ML; Start 08/01/17 at 21:00 Amikacin Sulfate/ Dextrose (Amikacin/D5W) 103 ml @ 103 mls/hr Q24H IVPB Last administered on 08/03/17 17:28; Admin Dose 103 MLS/HR; Start 08/02/17 at 17: 00 Assessment/Plan Chief Complaint/Hosp Course IMP: 1. VDRF 2. UTI 3. Encephalopathy 4. s/p Nephrostomy tube dislodgement 5. Seizure D/O RECS: 1. Vent support 2. Abx per ID 3. BDs 4. TF/Free H20 DC planning okay from pulmonary standpoint Problems: BRANDON GÓMEZ MD, [facility] Aug 04, 2017 12:45
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
[2017-08-04] MEDS: AMIKACIN 750 MG in DEXTROSE 5% 100 ML IVPB SCH (16:28)
[2017-08-04] MEDS: BALSAM PERU/CASTOR OIL 60 GM TUBE TOP SCH (21:39)
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
[2017-08-05] VITALS (23 sets, daily range): BP systolic 101–124; BP diastolic 62–80; PULSE 78–85; RESP 14–21
[2017-08-05] MEDS: NS + KCL 20 MEQ 1,000 ML IV SCH ×3 (05:17→20:44)
[2017-08-05] MEDS: AMPICILLIN 1 GM/NS (PMX) 50 ML IVPB SCH ×2 (05:17→13:51)
[2017-08-05] MEDS: LEVETIRACETAM (100 MG/ML) 5ML CUP GTB SCH ×3 (05:17→20:44)
[2017-08-05 08:19] LABS: BASOPHIL # 0.1 10^3/ul (0.0-0.1); BASOPHILS % 0.6 % (0.0-2.0); EOSINOPHILS # 0.2 10^3/ul (0.0-0.5); HEMATOCRIT 27.7 % (42.0-52.0); HEMOGLOBIN 9.1 g/dl (14.0-18.0); LYMPHOCYTES # 1.6 10^3/ul (0.8-2.9); LYMPHOCYTES % 19.7 % (15.0-51.0); MEAN CORPUSCULAR HEMOGLOBIN 31.3 pg (29.0-33.0); MEAN CORPUSCULAR HGB CONC 32.9 g/dl (32.0-37.0); MEAN CORPUSCULAR VOLUME 95.2 fl (82.0-101.0); MEAN PLATELET VOLUME 10.3 fl (7.4-10.4); MONOCYTE # 0.7 10^3/ul (0.3-0.9); MONOCYTES % 8.8 % (0.0-11.0); NEUTROPHIL # 5.4 10^3/ul (1.6-7.5); NEUTROPHILS % 67.8 % (39.0-77.0); PLATELET COUNT 272 10^3/UL (140-415); RED BLOOD COUNT 2.91 10^6/ul (4.70-6.10); RED CELL DISTRIBUTION WIDTH 16.9 % (11.5-14.5); WHITE BLOOD COUNT 7.9 10^3/ul (4.8-10.8)
[2017-08-05 09:00] LABS: CREATININE 0.39 mg/dl (0.61-1.24); POTASSIUM 4.3 mmol/L (3.5-5.1)
--- NOTE | 2017-08-05 09:27 | RADRPT ---
PROCEDURE: XR Chest. CLINICAL INDICATION: Dyspnea. TECHNIQUE: XR CHEST AP PORTABLE COMPARISON: 07/29/2017 FINDINGS: The tracheostomy tube is in satisfactory position. The right infrahilar lower lobe bronchovascular m arkings are mildly prominent. The heart size is normal. There is no pleural effusion. There is no p neumothorax. IMPRESSION: Mildly prom right infrahilar lower lobe bronchovascular markings, may represent mild infiltrate. RPTAT: JJ .Navarro Freeman MD, Date Time Electronically viewed and signed by .Navarro Freeman MD, on 08/05/2017 09:26 .A/
[2017-08-05] MEDS: FAMOTIDINE 20 MG TAB GTB SCH ×2 (09:54→20:19)
[2017-08-05] MEDS: FERROUS SULFATE 60 MG/ML 5ML CUP GTB SCH (09:54)
[2017-08-05] MEDS: SACCHAROMYCES BOULARDII 250 MG CAP GTB SCH (09:54)
[2017-08-05] MEDS: NYSTATIN SUSP 5 ML CUP PO SCH ×4 (09:54→20:19)
[2017-08-05] MEDS: BACLOFEN 10 MG TAB GTB SCH ×2 (09:55→20:19)
[2017-08-05] MEDS: ASCORBIC ACID 500 MG TAB GTB SCH (09:55)
[2017-08-05] MEDS: BALSAM PERU/CASTOR OIL 60 GM TUBE TOP SCH ×2 (09:56→20:19)
[2017-08-05] MEDS: ENOXAPARIN 30 MG/0.3 ML SYG SC SCH (09:56)
--- NOTE | 2017-08-05 15:15 | CONS ---
Date/Time of Note Date/Time of Note DATE: 08/05/17 TIME: 15:12 Assessment/Plan Assessment/Plan Chief Complaint/Hosp Course SUBJECTIVE: No acute changes. The patient is lying comfortably in bed, nonverbal, noncommunicative. No fevers overnight ANTIMICROBIALS: The patient is on: 1. Amikacin. 2. Ampicillin. DIAGNOSTICS: Chest x-ray on admission revealed clear lungs. INDWELLINGS: Trach, PEG, suprapubic catheter. PHYSICAL EXAMINATION: GENERAL: This is a chronically ill-appearing, middle-aged man who is in persistent vegetative state. HEENT: Head atraumatic, normocephalic. Sclerae anicteric. Buccal mucosa dry. NECK: Supple. CHEST: Rise symmetrical. Breath sounds diminished. HEART: S1, S2. ABDOMEN: Soft. Bowel tones present. ASSESSMENT: 1. Sepsis with ongoing fevers 2 to developing PNA 2. Polymicrobial urinary tract infection. 3. Chronic respiratory failure and dysphagia. 4. Persistent vegetative state. 5. Status post nephrostomy tube dislodgement, urology on case. PLAN: The patient remains stable, will change Ampicillin to Zosyn, continue supportive care, f/u urology rec-s [facility] staff Problems: Consultation Date/Type/Reason Admit Date/Time Jul 29, 2017 at 11:57 Type of Consultation: ID Referring Provider: ELIANA MCKAY Exam/Review of Systems Vital Signs Vitals Vital Signs Date Time Temp Pulse Resp B/P Pulse Ox O2 Delivery O2 Flow Rate FiO2 08/05/17 15:04 98.2 75 18 124/74 99 08/05/17 11:23 30 Intake and Output 08/04/17 08/04/17 08/05/17 14:59 22:59 06:59 Intake Total 1430 ml 2280 ml Output Total 3300 ml 900 ml Balance -1870 ml 1380 ml Results Result Diagram: 08/05/17 0732 08/05/17 0732 Results 24 hrs Laboratory Tests Test 08/05/17 07:32 White Blood Count 7.9 # Red Blood Count 2.91 L Hemoglobin 9.1 L Hematocrit 27.7 L Mean Corpuscular Volume 95.2 Mean Corpuscular Hemoglobin 31.3 Mean Corpuscular Hemoglobin Concent 32.9 Red Cell Distribution Width 16.9 H Platelet Count 272 Mean Platelet Volume 10.3 Neutrophils % 67.8 Lymphocytes % 19.7 Monocytes % 8.8 Eosinophils % 2.0 Basophils % 0.6 Nucleated Red Blood Cells % 0.0 Neutrophils # 5.4 Lymphocytes # 1.6 Monocytes # 0.7 Eosinophils # 0.2 Basophils # 0.1 Nucleated Red Blood Cells # 0.0 Sodium Level 138 Potassium Level 4.3 Chloride Level 102 Carbon Dioxide Level 24 Anion Gap 16 Blood Urea Nitrogen 15 Creatinine 0.39 L Glucose Level 116 Calcium Level 9.0 Medications Medications Current Medications Lorazepam (Ativan) 0.5 mg Q6H PRN IV ANXIETY; Start 07/29/17 at 14:00 Acetaminophen (Tylenol Liquid) 650 mg Q6H PRN GTB PAIN LEVEL 1-3 OR FEVER Last administered on 08/04/17 05:52; Admin Dose 650 MG; Start 07/29/17 at 14:00 Morphine Sulfate (morphine) 2 mg Q4H PRN IV PAIN LEVEL 7-10 Last administered on 08/02/17 15:38; Admin Dose 2 MG; Start 07/29/17 at 14:00 Famotidine (Pepcid) 20 mg Q12 GTB Last administered on 08/05/17 09:54; Admin Dose 20 MG; Start 07/29/17 at 21:00 Enoxaparin Sodium (Lovenox) 30 mg DAILY SC Last administered on 08/05/17 09: 56; Admin Dose 30 MG; Start 07/30/17 at 09:00 Albuterol (Proventil 0.083% (Neb)) 2.5 mg Q6 PRN NEB WHEEZING AND SOB; Start 07/29/17 at 14:30 Ascorbic Acid (Vitamin C) 500 mg DAILY GTB Last administered on 08/05/17 09: 55; Admin Dose 500 MG; Start 07/30/17 at 09:00 Baclofen (Lioresal) 10 mg BID GTB Last administered on 08/05/17 09:55; Admin Dose 10 MG; Start 07/29/17 at 21:00 Docusate Sodium (Colace Liquid Cup) 100 mg QHS PRN GTB CONSTIPATION; Start 07/29/17 at 14:30 Levetiracetam (Keppra Liquid) 1,000 mg Q8 GTB Last administered on 08/05/17 13:51; Admin Dose 1,000 MG; Start 07/29/17 at 22:00 Ferrous Sulfate (Feosol Liquid Cup) 300 mg DAILY GTB Last administered on 08/05 09:54; Admin Dose 300 MG; Start 07/30/17 at 09:00 Saccharomyces Boulardii 1 mg 1 mg DAILY GTB Last administered on 08/05/17 09: 54; Admin Dose 1 MG; Start 07/30/17 at 09:00 Potassium Chloride/Sodium Chloride (NS-KCl 20 Meq) 1,000 ml @ 100 mls/hr Q10H IV Last administered on 08/05/17 05:17; Admin Dose 100 MLS/HR; Start at 14:30 Polyethylene Glycol (Miralax) 17 gm DAILY PRN GTB CONSTIPATION; Start 07/29/17 at 14:30 Amikacin Sulfate PER PHARMACY DOSING NOTE XX ; Start 07/31/17 at 14:30 Ampicillin (Ampicillin 1 Gm/ NS (Pmx)) 50 ml @ 100 mls/hr Q8 IVPB Last administered on 08/05/17 13:51; Admin Dose 100 MLS/HR; Start 08/01/17 at 14: 00 Nystatin 5 ml 5 ml QID PO Last administered on 08/05/17 13:51; Admin Dose 5 ML; Start 08/01/17 at 21:00 Amikacin Sulfate/ Dextrose (Amikacin/D5W) 103 ml @ 103 mls/hr Q24H IVPB Last administered on 08/04/17 16:28; Admin Dose 103 MLS/HR; Start 08/02/17 at 17: 00 ERNESTO MCADAMS NP Aug 05, 2017 15:14
--- NOTE | 2017-08-05 16:02 | CONS ---
Date/Time of Note Date/Time of Note DATE: 08/05/17 TIME: 16:02 Consult Date/Type/Reason Admit Date/Time Jul 29, 2017 at 11:57 Type of Consultation: Pulmonary Ordering Provider: ELIANA MCKAY Subjective Patient remained stable no new events. Objective Vital Signs Date Time Temp Pulse Resp B/P Pulse Ox O2 Delivery O2 Flow Rate FiO2 08/05/17 15:04 98.2 75 18 124/74 99 08/05/17 11:23 30 Intake and Output 08/04/17 08/04/17 08/05/17 15:00 23:00 07:00 Intake Total 1430 ml 2280 ml Output Total 3300 ml 900 ml Balance -1870 ml 1380 ml Exam PHYSICAL EXAMINATION GENERAL: Chronically ill-appearing gentleman on mechanical ventilation VITAL SIGNS: see below. HEENT: Pupils equal, round, and reactive to light. Tracheostomy site clean and intact. CARDIAC: S1, S2, 1/6 systolic ejection murmur CHEST: Diminished air entry bilaterally. ABDOMEN: Mildly distended. Bowel sounds present no guarding or rebound EXTREMITIES: No cyanosis, clubbing edema +1 NEUROLOGIC: Generalized weakness Results/Medications Result Diagram: 08/05/17 0732 08/05/17 0732 Results 24 hrs Laboratory Tests Test 08/05/17 07:32 White Blood Count 7.9 # Red Blood Count 2.91 L Hemoglobin 9.1 L Hematocrit 27.7 L Mean Corpuscular Volume 95.2 Mean Corpuscular Hemoglobin 31.3 Mean Corpuscular Hemoglobin Concent 32.9 Red Cell Distribution Width 16.9 H Platelet Count 272 Mean Platelet Volume 10.3 Neutrophils % 67.8 Lymphocytes % 19.7 Monocytes % 8.8 Eosinophils % 2.0 Basophils % 0.6 Nucleated Red Blood Cells % 0.0 Neutrophils # 5.4 Lymphocytes # 1.6 Monocytes # 0.7 Eosinophils # 0.2 Basophils # 0.1 Nucleated Red Blood Cells # 0.0 Sodium Level 138 Potassium Level 4.3 Chloride Level 102 Carbon Dioxide Level 24 Anion Gap 16 Blood Urea Nitrogen 15 Creatinine 0.39 L Glucose Level 116 Calcium Level 9.0 Medications Current Medications Lorazepam (Ativan) 0.5 mg Q6H PRN IV ANXIETY; Start 07/29/17 at 14:00 Acetaminophen (Tylenol Liquid) 650 mg Q6H PRN GTB PAIN LEVEL 1-3 OR FEVER Last administered on 08/04/17 05:52; Admin Dose 650 MG; Start 07/29/17 at 14:00 Morphine Sulfate (morphine) 2 mg Q4H PRN IV PAIN LEVEL 7-10 Last administered on 08/02/17 15:38; Admin Dose 2 MG; Start 07/29/17 at 14:00 Famotidine (Pepcid) 20 mg Q12 GTB Last administered on 08/05/17 09:54; Admin Dose 20 MG; Start 07/29/17 at 21:00 Enoxaparin Sodium (Lovenox) 30 mg DAILY SC Last administered on 08/05/17 09: 56; Admin Dose 30 MG; Start 07/30/17 at 09:00 Albuterol (Proventil 0.083% (Neb)) 2.5 mg Q6 PRN NEB WHEEZING AND SOB; Start 07/29/17 at 14:30 Ascorbic Acid (Vitamin C) 500 mg DAILY GTB Last administered on 08/05/17 09: 55; Admin Dose 500 MG; Start 07/30/17 at 09:00 Baclofen (Lioresal) 10 mg BID GTB Last administered on 08/05/17 09:55; Admin Dose 10 MG; Start 07/29/17 at 21:00 Docusate Sodium (Colace Liquid Cup) 100 mg QHS PRN GTB CONSTIPATION; Start 07/29/17 at 14:30 Levetiracetam (Keppra Liquid) 1,000 mg Q8 GTB Last administered on 08/05/17 13:51; Admin Dose 1,000 MG; Start 07/29/17 at 22:00 Ferrous Sulfate (Feosol Liquid Cup) 300 mg DAILY GTB Last administered on 08/05 09:54; Admin Dose 300 MG; Start 07/30/17 at 09:00 Saccharomyces Boulardii 1 mg 1 mg DAILY GTB Last administered on 08/05/17 09: 54; Admin Dose 1 MG; Start 07/30/17 at 09:00 Potassium Chloride/Sodium Chloride (NS-KCl 20 Meq) 1,000 ml @ 100 mls/hr Q10H IV Last administered on 08/05/17 05:17; Admin Dose 100 MLS/HR; Start at 14:30 Polyethylene Glycol (Miralax) 17 gm DAILY PRN GTB CONSTIPATION; Start 07/29/17 at 14:30 Amikacin Sulfate (Amikacin Iv Per Pharmacy) PER PHARMACY DOSING NOTE XX ; Start 07/31/17 at 14:30 Nystatin 5 ml 5 ml QID PO Last administered on 08/05/17 13:51; Admin Dose 5 ML; Start 08/01/17 at 21:00 Amikacin Sulfate 750 mg/Dextrose 103 ml @ 103 mls/hr Q24H IVPB Last administered on 08/04/17t 16:28; Admin Dose 103 MLS/HR; Start 08/02/17 at 17: 00 Piperacillin Sod/ Tazobactam Sod (Zosyn 3.375gm/ 50 ml (Pmx)) 50 ml @ 100 mls/ hr Q8 IVPB ; Start 08/05/17 at 15:30 Assessment/Plan Chief Complaint/Hosp Course IMP: 1. VDRF 2. UTI 3. Encephalopathy 4. s/p Nephrostomy tube dislodgement 5. Seizure D/O RECS: 1. Vent support 2. Abx per ID 3. BDs 4. TF/Free H20 DC planning okay from pulmonary standpoint Problems: BRANDON GÓMEZ MD, [facility] Aug 05, 2017 16:02
[2017-08-05] MEDS: PIPER-TAZO 3.375 GM IV (PMX) 50 ML IVPB SCH ×2 (17:18→20:43)
[2017-08-05] MEDS: AMIKACIN 750 MG in DEXTROSE 5% 100 ML IVPB SCH (18:15)
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
== END 2017-08-06 00:34 | DRG 870 ==
LOC: E/R 08:17 → TEL 11:57
PROVIDERS: ADMIT Family Medicine; ATTEND Family Medicine
PROC: 5A1955Z Respiratory Ventilation, Greater than 96 Consecutive Hours (ICD-10-PCS; principal; 2017-07-29)
DX: A41.52 Sepsis due to Pseudomonas (principal); G82.50 Quadriplegia, unspecified; G93.1 Anoxic brain damage, not elsewhere classified; Z99.11 Dependence on respirator [ventilator] status; J96.10 Chronic respiratory failure, unspecified whether with hypoxia or hypercapnia; R40.3 Persistent vegetative state; N39.0 Urinary tract infection, site not specified; N13.30 Unspecified hydronephrosis; Z93.0 Tracheostomy status; B96.5 Pseudomonas (aeruginosa) (mallei) (pseudomallei) as the cause of diseases classified elsewhere; B95.2 Enterococcus as the cause of diseases classified elsewhere; R13.10 Dysphagia, unspecified; N20.0 Calculus of kidney; M24.50 Contracture, unspecified joint; N31.9 Neuromuscular dysfunction of bladder, unspecified; G40.909 Epilepsy, unspecified, not intractable, without status epilepticus; Z93.1 Gastrostomy status; Z93.50 Unspecified cystostomy status; Z74.01 Bed confinement status
CPT/HCPCS: 36415; 36600; 71010; 74176; 80048; 80053; 80150; 80202; 81001; 82803; 83605; 83735; 85025; 87040; 87081; 87086; 93005; 94002; 94003; 94799; 96372; 96374; 96375; J0278; J0692; J0696; J1650; J2270; J2543; J3370; J3480; J7030

== ENCOUNTER 2018-11-21 12:09 | Inpatient (IN) | payer OTHER ==
[~2018-11-21] VITALS: Ht 167.6 cm; Wt 66.0 kg
[~2018-11-21 12:09] MED LIST changes: -BISA10SU58 PR; +CRAN425C6 GTB; -ENOX40DI2 SC; -IBUP-1542 GTB; -KEP100S GTB; -LACO200T2 GTB; +LACTINEX GTB; -LANS30CA GTB; +LEVE500S8 GTB; -MAGN2400 GTB; -METO-448 GTB; -NA P118E PR; +PANT40TA4 PO; +POTA20LI15 GTB; -POTA20LI5 GTB
--- NOTE | 2018-11-21 12:31 | ERD ---
ER Documentation Chief Complaint Chief Complaint GABI MARTINEZ, sent from [facility] for wound lesions on back of head 1 jamison/ago HPI 43-year-old male chronic trach and vent dependent sent by Dr. Springer from his [facility] facility to evaluate lesions on the back of his head for about 1 month. Otherwise history is unavailable as the patient is nonverbal. ROS All systems reviewed and are negative except as per history of present illness. Medications Home Meds Reported Medications Pantoprazole* (Pantoprazole*) 40 Mg Tablet., 40 MG PO AC BREAKFAST, TAB 07/29/17 Levetiracetam* (Levetiracetam*) 500 Mg/5 Ml Solution, 1000 MG GTB Q8, ML 07/29/17 Cranberry Extract (Cranberry) 425 Mg Capsule, 425 MG GTB BID, CAP 07/29/17 Lactobacillus Acidophilus* (Lactinex*) 1 Tab Chew, 1 TAB GTB DAILY, TAB 07/29/17 Chlorhexidine Gluconate* (Chlorhexidine Gluconate*) 118 Ml Liquid, 15 ML TOP Q12, ML VIA TOOTHBRUSH Q/ORAL SUCTION FOR PREVENTION/REDUCTION OF PNA 08/09/16 Albuterol Sulfate* (Albuterol Sulfate* Neb) 0.083%-3 Ml Neb, 2.5 MG NEB Q6 PRN for WHEEZING AND SOB, #30 VIAL 08/09/16 Albuterol Sulfate* (Albuterol Sulfate* Neb) 0.083%-3 Ml Neb, 2.5 MG NEB Q3H PRN for WHEEZING AND SOB, #30 VIAL 08/09/16 Cran/Vitc/Mannose/Inulin/Brom (Uti-Stat Liquid) 3,875 Mg/30 Ml Liquid, 3875 MG GTB DAILY 08/09/16 Acetaminophen* (Acetaminophen*) 500 MG Extra Strength Tablet, 1000 MG GTB Q4 PRN for MODERATE PAIN LEVEL 4-6, TAB 08/09/16 Ascorbic Acid* (Vitamin C* Liq) 500 Mg/5 Ml Syrup, 500 MG GTB DAILY, ML 03/19/16 Potassium Chloride* (Potassium Chloride*) 20 Meq/15 Ml Liquid, 20 MEQ GTB DAILY, ML 02/02/16 Ferrous Sulfate (Ferrous Sulfate) 220 Mg Solution, 330 MG GTB DAILY 02/02/16 Docusate Sodium* (Colace* Liq) 50 Mg/5 Ml Liquid, 100 MG GTB QHS PRN for CONSTIPATION, EA 02/02/16 Acetaminophen* (Acetaminophen*) 650 Mg Tablet, 650 MG GTB Q4 PRN for PAIN AND OR ELEVATED TEMP, #30 TAB 09/26/15 Acetaminophen* (Acetaminophen*) 650 Mg Tablet, 650 MG GTB Q4 PRN for TRACH CHANGE, #30 TAB 09/26/15 Hydrocodone Bit-Acetaminophen* ([place]*) 5-325 Mg Tab, 1 TAB GTB BID PRN for PAIN, TAB 09/26/15 Multivit &Minerals/Ferrous Fum (MULTIVITAMIN LIQUID) 9 Mg/15 Ml Liquid, 5 ML GTB DAILY 09/26/15 Baclofen* (Baclofen*) 10 Mg Tablet, 10 MG GTB BID, TAB 09/26/15 Allergies Allergies: Coded Allergies: No Known Allergy (Unverified , 11/21/18) PMhx/Soc Unable to obtain History of Surgery: Yes (nephrostomy tube, GTube,IVC filter,tracheostomy) Hx Neurological Disorder: Yes (anoxic encephalopathy, CVA?) Hx Respiratory Disorders: Yes (vent dependent,chronic resp failure) Hx Cardiac Disorders: No Hx Psychiatric Problems: No Hx Alcohol Use: No Hx Substance Use: No Hx Tobacco Use: No FmHx Unable to obtain Physical Exam Vitals Vital Signs Date Temp Pulse Resp B/P (MAP) Pulse Ox O2 O2 Flow FiO2 Time Delivery Rate 11/21/18 107 24 100 40 12:42 11/21/18 98.2 104 20 117/88 100 12:23 (98) Physical Exam INITIAL VITAL SIGNS: Reviewed by me GENERAL: Patient is lying on gurney, awake, no apparent distress HEAD: Normocephalic. Large raised, irregularly shaped smooth lesions of different sizes on the lower scalp and neck area, cauliflower appearing. EYES:Lids, lashes, and conjunctiva clear. ENT: Mucous membranes dry. Airway patent. NECK: Trach in place. Posterior neck with raised skin lesions, skin colored RESPIRATORY: On vent. Clear to auscultation bilaterally. CV: Tachycardic with regular rhythm. No murmurs, No rubs or gallops. ABDOMEN: Soft, non-distended EXTREMITIES: No edema. No clubbing or cyanosis. Contractures in bilateral lower and upper extremities. Pulses symmetric. SKIN: Warm and dry. Decreased turgor. CT head and neck exam NEUROLOGIC: Awake and alert. Nonverbal. Result Diagram: 11/21/18 1242 Results 24 hrs Laboratory Tests Test 11/21/18 12:42 White Blood Count 10.1 10^3/ul Red Blood Count 4.15 10^6/ul Hemoglobin 11.4 g/dl Hematocrit 37.4 % Mean Corpuscular Volume 90.1 fl Mean Corpuscular Hemoglobin 27.5 pg Mean Corpuscular Hemoglobin Concent 30.5 g/dl Red Cell Distribution Width 16.0 % Platelet Count 262 10^3/UL Mean Platelet Volume 11.2 fl Immature Granulocytes % 0.700 % Neutrophils % 66.9 % Lymphocytes % 23.0 % Monocytes % 6.3 % Eosinophils % 2.5 % Basophils % 0.6 % Nucleated Red Blood Cells % 0.0 /100WBC Immature Granulocytes # 0.070 10^3/ul Neutrophils # 6.8 10^3/ul Lymphocytes # 2.3 10^3/ul Monocytes # 0.6 10^3/ul Eosinophils # 0.3 10^3/ul Basophils # 0.1 10^3/ul Nucleated Red Blood Cells # 0.0 10^3/ul Current Medications Medications Dose Sig/Henry Start Time Status Last (Trade) Ordered Route PRN Stop Time Admin Dose Reason Admin Ondansetron 4 mg ER BRIDGE 11/21/18 HCl (Zofran PRN IV 13:00 11/22/18 Inj) NAUSEA/VOMITI 12:59 NG 650 mg ER BRIDGE 11/21/18 Acetaminophen PRN PO 13:00 11/22/18 (Tylenol .MILD PAIN 12:59 Tab) 1-3 OR TEMP Procedures/MDM EMERGENT LABS AND DIAGNOSTIC STUDIES: Lab Results above were reviewed and interpreted by me. CBC: no anemia or evidence of infection BMP: pending Initial Nursing notes reviewed. Previous Medical Records requested via the Electronic Health Record. EMERGENCY DEPARTMENT COURSE / MEDICAL DECISION MAKING: Patient is presenting with worsening scalp and neck lesions. Since he is at a [facility]ci, it has been very difficult to get a surgeon to come there and biopsy these lesions. He was sent by his primary care doctor for admission and further workup. Patient will be admitted to [facility] for further workup and management. Accepting Care Team: Current data and ongoing care discussed. Time: Time of admission Primary Provider: Dr. Springer Pending labs: BMP, PTPTT Departure Diagnosis: Primary Impression: Scalp lesion Additional Impression: Lesion of neck Condition: Stable EKLOU BAY MD Nov 21, 2018 12:31
[2018-11-21] MEDS ORDERED: ALBU2.5V3 NEB ×2 (12:57→13:17)
[2018-11-21] MEDS ORDERED: ASPI-817 GTB (12:58)
[2018-11-21] MEDS ORDERED: ONDANSETRON 4 MG INJ IV PRN ×2 (13:00→16:30)
[2018-11-21] MEDS ORDERED: CHLO473M2 MM (13:00)
[2018-11-21] MEDS ORDERED: ACETAMINOPHEN 325 MG TAB PO PRN (13:00)
[2018-11-21] MEDS ORDERED: DOCU-144 GTB (13:04)
[2018-11-21] MEDS ORDERED: CRAN425C6 GTB (13:07)
[2018-11-21] MEDS ORDERED: KEP100S GTB (13:09)
[2018-11-21] MEDS ORDERED: MULT-105 GTB (13:11)
[2018-11-21] MEDS ORDERED: ACET325T45 PO (13:14)
[2018-11-21] MEDS ORDERED: ACET325T33 GTB (13:14)
[2018-11-21] MEDS ORDERED: CRAN3875 GTB (13:14)
[2018-11-21] MEDS ORDERED: ASC500 GTB (13:15)
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
[2018-11-21] MEDS ORDERED: ALBUTEROL/IPRATROPIUM (NEB) 3 ML AMP HHN PRN (16:30)
[2018-11-21] MEDS ORDERED: NACL 0.9% 3 ML SYG IV SCH (16:30)
[2018-11-21] MEDS ORDERED: LEVETIRACETAM (100 MG/ML PO SYG) GTB SCH (16:30)
[2018-11-21] MEDS ORDERED: DOCUSATE SODIUM 100 MG CAP PO PRN (16:30)
[2018-11-21] MEDS ORDERED: MAGNESIUM HYDROXIDE 30ML CUP PO PRN (16:30)
[2018-11-21] MEDS: LEVETIRACETAM (100 MG/ML) 5ML CUP GTB SCH (21:00)
[2018-11-21] MEDS: FAMOTIDINE 20 MG TAB GTB SCH (21:00)
[2018-11-21] MEDS ORDERED: DOCUSATE SODIUM 100 MG CAP PO SCH (21:00)
[2018-11-21] MEDS: DOCUSATE SODIUM 10 MG/ML (10ML CUP) GTB SCH (21:00)
[2018-11-21] MEDS ORDERED: FAMOTIDINE 20 MG TAB PO SCH (21:00)
[2018-11-21] MEDS: CHLORHEXIDINE GLUCONATE 15 ML UD CUP MM SCH (21:01)
[2018-11-21 23:47] VITALS: PULSE 104
[2018-11-22] VITALS (25 sets, daily range): BP systolic 99–135; BP diastolic 55–82; PULSE 81–131; RESP 14–23
[2018-11-22] MEDS: ACETAMINOPHEN 325 MG TAB PO PRN ×3 (00:36→20:30)
[2018-11-22] MEDS: CHLORHEXIDINE GLUCONATE 15 ML UD CUP MM SCH ×2 (04:30→15:36)
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
[2018-11-22] MEDS ORDERED: PENDING SANTYL ORDER FOR WOUND CARE XX PRN (06:00)
[2018-11-22] MEDS: LEVETIRACETAM (100 MG/ML) 5ML CUP GTB SCH ×3 (06:26→23:04)
[2018-11-22] MEDS ORDERED: SILVER NITRATE SWAB TOP PRN (07:00)
[2018-11-22] MEDS ORDERED: LIDOCAINE 1%/EPI (1:100,000) (MDV) 20 ML INJ PRN (07:00)
[2018-11-22] MEDS: ASPIRIN (EC) 81 MG TAB PO SCH (09:43)
[2018-11-22] MEDS: ASCORBIC ACID 500 MG TAB GTB SCH (09:43)
[2018-11-22] MEDS: MULTIVITAMINS/MINERALS TAB PO SCH (09:43)
[2018-11-22] MEDS: FAMOTIDINE 20 MG TAB GTB SCH ×2 (09:43→20:30)
[2018-11-22] MEDS: ENOXAPARIN 30 MG/0.3 ML SYG SC SCH (10:06)
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
[2018-11-22] MEDS ORDERED: SODIUM CHLORIDE 0.45% 500 ML BAG IV* ONE (15:30)
[2018-11-22] MEDS: DOCUSATE SODIUM 10 MG/ML (10ML CUP) GTB SCH (20:29)
[2018-11-22] MEDS: BALSAM PERU/CASTOR OIL 60 GM TUBE TOP SCH (20:29)
[2018-11-23] VITALS (24 sets, daily range): BP systolic 87–112; BP diastolic 52–76; PULSE 64–101; RESP 14–20; Ht 167.6 cm; Wt 66.0 kg
[2018-11-23] MEDS: CHLORHEXIDINE GLUCONATE 15 ML UD CUP MM SCH ×2 (04:47→16:43)
[2018-11-23] MEDS: LEVETIRACETAM (100 MG/ML) 5ML CUP GTB SCH ×3 (05:57→21:21)
[2018-11-23] MEDS: BALSAM PERU/CASTOR OIL 60 GM TUBE TOP SCH (09:08)
[2018-11-23] MEDS: FAMOTIDINE 20 MG TAB GTB SCH ×2 (09:08→21:21)
[2018-11-23] MEDS: ASPIRIN (EC) 81 MG TAB PO SCH (09:08)
[2018-11-23] MEDS: ASCORBIC ACID 500 MG TAB GTB SCH (09:08)
[2018-11-23] MEDS: MULTIVITAMINS/MINERALS TAB PO SCH (09:08)
[2018-11-23] MEDS: ENOXAPARIN 30 MG/0.3 ML SYG SC SCH (09:15)
[2018-11-23] MEDS ORDERED: CEFTRIAXONE 1 GM/50 ML (PMX) 50 ML IVPB SCH (10:30)
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
[2018-11-23] MEDS ORDERED: LIDOCAINE 1%/EPI (1:100,000) (MDV) 20 ML INJ STA (12:24)
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
[2018-11-23] MEDS ORDERED: morphine 2 MG INJ IV STA (12:57)
[2018-11-23] MEDS ORDERED: LORAZEPAM 2 MG INJ IV ONE (13:00)
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
[2018-11-23] MEDS: DOCUSATE SODIUM 10 MG/ML (10ML CUP) GTB SCH (21:21)
[2018-11-23] MEDS: CEFEPIME 1GM/50 ML (PMX) 50 ML IVPB SCH (21:21)
[2018-11-24] VITALS (22 sets, daily range): BP systolic 94–118; BP diastolic 53–81; PULSE 70–108; RESP 14–23
[2018-11-24] MEDS: CHLORHEXIDINE GLUCONATE 15 ML UD CUP MM SCH ×2 (04:40→16:47)
[2018-11-24] MEDS ORDERED: VANCOMYCIN HCL 1.25 GM in SOD CHLORIDE 0.9% 250 ML IVPB ONE (05:00)
[2018-11-24] MEDS ORDERED: VANCOMYCIN IV PER PHARMACY XX SCH (05:00)
[2018-11-24] MEDS: LEVETIRACETAM (100 MG/ML) 5ML CUP GTB SCH ×3 (06:05→21:33)
[2018-11-24] MEDS: ENOXAPARIN 30 MG/0.3 ML SYG SC SCH ×2 (09:00→09:06)
[2018-11-24] MEDS: ASCORBIC ACID 500 MG TAB GTB SCH (09:02)
[2018-11-24] MEDS: ASPIRIN (EC) 81 MG TAB PO SCH (09:02)
[2018-11-24] MEDS: CEFEPIME 1GM/50 ML (PMX) 50 ML IVPB SCH ×2 (09:02→20:19)
[2018-11-24] MEDS: FAMOTIDINE 20 MG TAB GTB SCH ×2 (09:02→20:19)
[2018-11-24] MEDS: BALSAM PERU/CASTOR OIL 60 GM TUBE TOP SCH (09:03)
[2018-11-24] MEDS: MULTIVITAMINS/MINERALS TAB PO SCH (09:05)
[2018-11-24] MEDS: LORAZEPAM 2 MG INJ IV PRN ×2 (12:48→23:25)
[2018-11-24] MEDS ORDERED: VANCOMYCIN 1 GM 250 ML IVPB SCH (13:00)
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
--- NOTE | 2018-11-24 15:09 | OPR ---
Date/Time of Note Date/Time of Note DATE: 11/24/18 TIME: 15:04 Operative Report Procedure Date: Nov 24, 2018 Preoperative Diagnosis Posterior scalp lesions Postoperative Diagnosis Posterior scalp lesions Operation/Procedure Performed Incisional biopsy of posterior scalp lesion Surgeon see signature line Emg Technician None Anesthesia Type: other (Local) Estimated Blood Loss: minimal Transfusion none Specimen Posterior scalp lesion Grafts/Implants none Complications none Pt Condition Post Procedure: stable Indications Per notes Procedure Description Risks, benefits, alternatives reviewed with and agreed upon with decision maker. Patient in his own bed left lateral decubitus. Area was prepped and draped in sterile fashion. Timeout was performed. Lidocaine was injected to the area. Using scalpel, an area of the posterior scalp lesion was biopsied and tissue was sent in formaldehyde. Hemostasis was obtained using direct applied pressure and silver nitrate sticks. Dressing was applied to cover. CHRISSIE HERNANDEZ NP Nov 24, 2018 15:09
--- NOTE | 2018-11-24 15:22 | CONS ---
Assessment/Plan Assessment/Plan Hospital Course (Demo Recall) No events patient is noncommunicative in no distress. No fevers overnight. WBC 9.4 platelets 234 neutrophils 75.2 BUN 21 creatinine 0.47 Microbiology: Blood culture growing gram-positive cocci in pairs and clusters Indwelling: Trach back suprapubic catheter Antimicrobials: Vanco cefepime Diagnosis: Chest x-ray on admission revealed no evidence of acute cardiopulmonary process Urinalysis on admission was positive for nitrite leukocyte esterase and few bacteria Physical examination: Chronically ill-appearing vegetative middle-aged man who is in no distress. Head atraumatic neck is supple chest rise symmetrical breath sounds diminished bases. Heart: S1-S2. Abdomen soft bowel sounds present. Extremities contractured Assessment: 1. Sepsis, present on admission 2. Gram-positive cocci bacteremia 3. UTI per UA 4. Occipital area skin lesion, status post biopsy 5. Vegetative state 6. Onychomycosis of toenails Plan: Patient is stable, will repeat blood cultures, at fluconazole, send urine culture, continue present care and await for biopsy results Consultation Date/Type/Reason Admit Date/Time Nov 23, 2018 at 09:56 Initial Consult Date 11/22/18 Type of Consult id Requesting Provider: DB SUMMERS Date/Time of Note DATE: 11/24/18 TIME: 15:22 Exam/Review of Systems Exam Vitals Vital Signs Date Temp Pulse Resp B/P (MAP) Pulse Ox O2 O2 Flow FiO2 Time Delivery Rate 11/24/18 98.5 99 20 99/62 (74) 99 15:08 11/24/18 40 13:45 11/22/18 Mechanical 04:57 Ventilator Intake and Output 11/23/18 11/23/18 11/24/18 1515:00 23:00 07:00 IntakeIntake Total 920 ml 970 ml OutputOutput Total 850 ml 700 ml BalanceBalance 70 ml 270 ml Results Result Diagram: 11/24/18 0823 11/24/18 0823 Results 24hrs Laboratory Tests Test 11/24/18 08:23 White Blood Count 9.4 Red Blood Count 3.55 L Hemoglobin 9.8 L Hematocrit 31.9 L Mean Corpuscular Volume 89.9 Mean Corpuscular Hemoglobin 27.6 L Mean Corpuscular Hemoglobin Concent 30.7 L Red Cell Distribution Width 15.9 H Platelet Count 234 Mean Platelet Volume 10.3 Immature Granulocytes % 0.400 Neutrophils % 75.2 Lymphocytes % 15.0 Monocytes % 6.7 Eosinophils % 2.2 Basophils % 0.5 Nucleated Red Blood Cells % 0.0 Immature Granulocytes # 0.040 H Neutrophils # 7.1 Lymphocytes # 1.4 Monocytes # 0.6 Eosinophils # 0.2 Basophils # 0.1 Nucleated Red Blood Cells # 0.0 Sodium Level 141 Potassium Level 3.7 Chloride Level 107 Carbon Dioxide Level 23 Anion Gap 11 Blood Urea Nitrogen 21 H Creatinine 0.47 L Est Glomerular Filtrat Rate mL/min > 60 Glucose Level 123 Lactic Acid Level 1.0 Calcium Level 8.6 Medications Medication Current Medications Ascorbic Acid (Vitamin C) 500 mg DAILY GTB Last administered on 11/24/18 09:02; Admin Dose 500 MG; Start 11/22/18 at 09:00 Aspirin (Halfprin) 81 mg DAILY PO Last administered on 11/24/18 09:02; Admin Dose 81 MG; Start 11/22/18 at 09:00 Chlorhexidine Gluconate (Peridex) 15 ml Q12H MM Last administered on 11/24/18 04:40; Admin Dose 15 ML; Start 11/21/18 at 16:30 Multivitamins/ Minerals (Theragran-M) 1 tab DAILY PO Last administered on 11/24/18 09:05; Admin Dose 1 TAB; Start 11/22/18 at 09:00 IV Flush (NS 3 ml) 3 ml PER PROTOCOL IV ; Start 11/21/18 at 16:30 Lorazepam (Ativan) 0.5 mg Q6H PRN IV .ANXIETY Last administered on 11/24/18 12:48; Admin Dose 0.5 MG; Start 11/21/18 at 16:30 Ondansetron HCl (Zofran Inj) 4 mg Q6H PRN IV NAUSEA/VOMITING; Start 11/21/18 at 16:30 Acetaminophen (Tylenol Tab) 650 mg Q6H PRN PO .PAIN 1-3 OR TEMP Last administered on 11/22/18 20:30; Admin Dose 650 MG; Start 11/21/18 at 16:30 Docusate Sodium (Colace) 100 mg Q12H PRN PO .CONSTIPATION; Start 11/21/18 at 16:30 Magnesium Hydroxide (Milk Of Mag) 30 ml DAILY PRN PO .CONSTIPATION; Start 11/21/18 at 16:30 Enoxaparin Sodium (Lovenox) 30 mg DAILY SC Last administered on 11/23/18at 09:15; Admin Dose 30 MG; Start 11/22/18 at 09:00 Albuterol/ Ipratropium (Duoneb) 3 ml Q4H RESP THERAPY PRN HHN SHORTNESS OF BREATH; Start 11/21/18 at 16:30 Levetiracetam (Keppra Liquid) 1,000 mg Q8 GTB Last administered on 11/24/18at 13:11; Admin Dose 1,000 MG; Start 11/21/18 at 20:52 Docusate Sodium (Colace Liquid Cup) 100 mg QHS GTB Last administered on 11/23/18at 21:21; Admin Dose 100 MG; Start 11/21/18 at 21:00 Famotidine (Pepcid) 20 mg Q12 GTB Last administered on 11/24/18 09:02; Admin Dose 20 MG; Start 11/21/18 at 21:00 Miscellaneous Information (Pending [facility] Order For Wound Care) This patient garcia... PRN PRN XX WOUND CARE; Start 11/22/18 at 06:00 Cefepime HCl 50 ml @ 100 mls/hr Q12 IVPB Last administered on 11/24/18at 09:02; Admin Dose 100 MLS/HR; Start 11/23/18 at 21:00 Vancomycin HCl (Vanco Iv Per Pharmacy) VANCOMYCIN PER PHARMACY PER PROTOCOL XX ; Start 11/24/18 at 05:00 Miscellaneous Information (*Rx Drug Level Order Reminder*) VANCO TROUGH @ 1,700 ON... 1700 ONCE XX ; Start 11/24/18 at 17:00; Stop 11/24/18 at 17:01 Vancomycin HCl 250 ml @ 125 mls/hr Q12H IVPB ; Start 11/25/18 at 06:00 ERNESTO MCADAMS NP Nov 24, 2018 15:22
[2018-11-24] MEDS: FLUCONAZOLE 100 MG TAB NGT SCH (16:47)
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
[2018-11-24] MEDS: DOCUSATE SODIUM 10 MG/ML (10ML CUP) GTB SCH (20:19)
[2018-11-25] VITALS (23 sets, daily range): BP systolic 99–158; BP diastolic 55–84; PULSE 75–124; RESP 14–20
[2018-11-25] MEDS: CHLORHEXIDINE GLUCONATE 15 ML UD CUP MM SCH ×2 (04:01→16:11)
[2018-11-25] MEDS: ACETAMINOPHEN 325 MG TAB PO PRN (04:02)
[2018-11-25] MEDS: LEVETIRACETAM (100 MG/ML) 5ML CUP GTB SCH ×3 (05:31→22:11)
[2018-11-25] MEDS: VANCOMYCIN 1 GM 250 ML IVPB SCH ×2 (05:31→17:13)
[2018-11-25] MEDS: MULTIVITAMINS/MINERALS TAB PO SCH (08:46)
[2018-11-25] MEDS: ASPIRIN (EC) 81 MG TAB PO SCH (08:46)
[2018-11-25] MEDS: CEFEPIME 1GM/50 ML (PMX) 50 ML IVPB SCH ×2 (08:46→22:11)
[2018-11-25] MEDS: FAMOTIDINE 20 MG TAB GTB SCH ×2 (08:46→22:11)
[2018-11-25] MEDS: ASCORBIC ACID 500 MG TAB GTB SCH (08:46)
[2018-11-25] MEDS: FLUCONAZOLE 100 MG TAB NGT SCH (08:47)
[2018-11-25] MEDS: BALSAM PERU/CASTOR OIL 60 GM TUBE TOP SCH (08:49)
[2018-11-25] MEDS: ENOXAPARIN 30 MG/0.3 ML SYG SC SCH (09:18)
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
--- NOTE | 2018-11-25 17:29 | CONS ---
Assessment/Plan Assessment/Plan Hospital Course (Demo Recall) No acute changes patient is noncommunicative in no distress. Status post temperature of 102.9 earlier currently 98.7 WBC 9.8 no shift no bands BUN 19 creatinine 0.58 Microbiology: Blood culture growing gram-positive cocci in pairs and clusters 1 set, urine culture growing gram-negative rods, repeat blood cultures negative preliminary Indwelling: Trach PEG suprapubic catheter Antimicrobials: Vanco Cefepime Diflucan Diagnosis: Chest x-ray on admission revealed no evidence of acute cardi opulmonary process Urinalysis on admission was positive for nitrite leukocyte esterase and few bact eria Physical examination: Chronically ill-appearing vegetative middle-aged man who is in no distress. Head atraumatic neck is supple chest rise symmetrical breath sounds diminished bases. Heart: S1-S2. Abdomen soft bowel sounds present. Extremities contractured Assessment: 1. Sepsis, present on admission 2. Gram-positive cocci bacteremia 3. UTI ==> GNR 4. Occipital area skin lesion, status post biopsy 5. Vegetative state 6. Onychomycosis of toenails Plan: Stable, continue antibiotics, await for final cultures and biopsy results, check pro-calcitonin level Consultation Date/Type/Reason Admit Date/Time Nov 23, 2018 at 09:56 Initial Consult Date 11/22/18 Type of Consult id Requesting Provider: DB SUMMERS Date/Time of Note DATE: 11/25/18 TIME: 17:27 Exam/Review of Systems Exam Vitals Vital Signs Date Temp Pulse Resp B/P (MAP) Pulse Ox O2 O2 Flow FiO2 Time Delivery Rate 11/25/18 95 16:01 11/25/18 98.7 20 158/84 99 15:06 (108) 11/25/18 40 15:05 11/22/18 Mechanical 04:57 Ventilator Intake and Output 11/24/18 11/24/18 11/25/18 1515:00 23:00 07:00 IntakeIntake Total 50 ml 1270 ml 1000 ml OutputOutput Total 550 ml 1200 ml BalanceBalance 50 ml 720 ml -200 ml Results Result Diagram: 11/25/18 0607 11/25/18 0607 Results 24hrs Laboratory Tests Test 11/25/18 06:07 White Blood Count 9.8 Red Blood Count 3.57 L Hemoglobin 9.8 L Hematocrit 31.2 L Mean Corpuscular Volume 87.4 Mean Corpuscular Hemoglobin 27.5 L Mean Corpuscular Hemoglobin Concent 31.4 L Red Cell Distribution Width 15.9 H Platelet Count 268 Mean Platelet Volume 10.4 Immature Granulocytes % 0.400 Neutrophils % 73.7 Lymphocytes % 15.9 Monocytes % 8.5 Eosinophils % 1.2 Basophils % 0.3 Nucleated Red Blood Cells % 0.0 Immature Granulocytes # 0.040 H Neutrophils # 7.3 Lymphocytes # 1.6 Monocytes # 0.8 Eosinophils # 0.1 Basophils # 0.0 Nucleated Red Blood Cells # 0.0 Sodium Level 139 Potassium Level 3.7 Chloride Level 104 Carbon Dioxide Level 23 Anion Gap 12 Blood Urea Nitrogen 19 Creatinine 0.58 L Est Glomerular Filtrat Rate mL/min > 60 Glucose Level 123 Lactic Acid Level 1.4 Calcium Level 8.7 Medications Medication Current Medications Ascorbic Acid (Vitamin C) 500 mg DAILY GTB Last administered on 11/25/18 08:46; Admin Dose 500 MG; Start 11/22/18 at 09:00 Aspirin (Halfprin) 81 mg DAILY PO Last administered on 11/25/18 08:46; Admin Dose 81 MG; Start 11/22/18 at 09:00 Chlorhexidine Gluconate (Peridex) 15 ml Q12H MM Last administered on 11/25/18 16:11; Admin Dose 15 ML; Start 11/21/18 at 16:30 Multivitamins/ Minerals (Theragran-M) 1 tab DAILY PO Last administered on 11/25/18 08:46; Admin Dose 1 TAB; Start 11/22/18 at 09:00 IV Flush (NS 3 ml) 3 ml PER PROTOCOL IV ; Start 11/21/18 at 16:30 Lorazepam (Ativan) 0.5 mg Q6H PRN IV .ANXIETY Last administered on 11/24/18 23:25; Admin Dose 0.5 MG; Start 11/21/18 at 16:30 Ondansetron HCl (Zofran Inj) 4 mg Q6H PRN IV NAUSEA/VOMITING; Start 11/21/18 at 16:30 Acetaminophen (Tylenol Tab) 650 mg Q6H PRN PO .PAIN 1-3 OR TEMP Last administered on 11/25/18 04:02; Admin Dose 650 MG; Start 11/21/18 at 16:30 Docusate Sodium (Colace) 100 mg Q12H PRN PO .CONSTIPATION; Start 11/21/18 at 16:30 Magnesium Hydroxide (Milk Of Mag) 30 ml DAILY PRN PO .CONSTIPATION; Start 11/21/18 at 16:30 Enoxaparin Sodium (Lovenox) 30 mg DAILY SC Last administered on 11/25/18 09:18; Admin Dose 30 MG; Start 11/22/18 at 09:00 Albuterol/ Ipratropium (Duoneb) 3 ml Q4H RESP THERAPY PRN HHN SHORTNESS OF BREATH; Start 11/21/18 at 16:30 Levetiracetam (Keppra Liquid) 1,000 mg Q8 GTB Last administered on 11/25/18 13:02; Admin Dose 1,000 MG; Start 11/21/18 at 20:52 Docusate Sodium (Colace Liquid Cup) 100 mg QHS GTB Last administered on 11/24/18 20:19; Admin Dose 100 MG; Start 11/21/18 at 21:00 Famotidine (Pepcid) 20 mg Q12 GTB Last administered on 11/25/18 08:46; Admin Dose 20 MG; Start 11/21/18 at 21:00 [facility] This patient garcia... PRN PRN XX WOUND CARE; Start 11/22/18 at 06:00 Cefepime HCl 50 ml @ 100 mls/hr Q12 IVPB Last administered on 11/25/18 08:46; Admin Dose 100 MLS/HR; Start 11/23/18 at 21:00 Vancomycin HCl (Vanco Iv Per Pharmacy) VANCOMYCIN PER PHARMACY PER PROTOCOL XX ; Start 11/24/18 at 05:00 Vancomycin HCl 250 ml @ 125 mls/hr Q12H IVPB Last administered on 11/25/18 17:13; Admin Dose 125 MLS/HR; Start 11/25/18 at 06:00 Fluconazole (Diflucan) 100 mg DAILY NGT Last administered on 11/25/18 08:47; Admin Dose 100 MG; Start 11/24/18 at 15:30 ERNESTO MCADAMS NP Nov 25, 2018 17:29
[2018-11-25] MEDS: DOCUSATE SODIUM 10 MG/ML (10ML CUP) GTB SCH (22:11)
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
[2018-11-26] VITALS (23 sets, daily range): BP systolic 130–139; BP diastolic 72–81; PULSE 75–100; RESP 14–20
[2018-11-26] MEDS: CHLORHEXIDINE GLUCONATE 15 ML UD CUP MM SCH ×2 (05:16→15:54)
[2018-11-26] MEDS: LEVETIRACETAM (100 MG/ML) 5ML CUP GTB SCH ×3 (05:50→21:21)
[2018-11-26] MEDS: VANCOMYCIN HCL 1.25 GM in SOD CHLORIDE 0.9% 250 ML IVPB SCH ×2 (05:50→17:03)
[2018-11-26] MEDS: ASCORBIC ACID 500 MG TAB GTB SCH (09:16)
[2018-11-26] MEDS: FAMOTIDINE 20 MG TAB GTB SCH ×2 (09:16→21:21)
[2018-11-26] MEDS: CEFEPIME 1GM/50 ML (PMX) 50 ML IVPB SCH ×2 (09:16→21:22)
[2018-11-26] MEDS: ASPIRIN (EC) 81 MG TAB PO SCH (09:16)
[2018-11-26] MEDS: FLUCONAZOLE 100 MG TAB NGT SCH (09:16)
[2018-11-26] MEDS: MULTIVITAMINS/MINERALS TAB PO SCH (09:16)
[2018-11-26] MEDS: BALSAM PERU/CASTOR OIL 60 GM TUBE TOP SCH (09:17)
[2018-11-26] MEDS: ENOXAPARIN 30 MG/0.3 ML SYG SC SCH (09:20)
--- NOTE | 2018-11-26 11:01 | CONS ---
Assessment/Plan Assessment/Plan Hospital Course (Demo Recall) No acute changes, afebrile Microbiology: Blood culture grew staph 1 set, urine culture growing gram- negative rods, repeat blood cultures negative Indwelling: Trach PEG suprapubic catheter Antimicrobials: Vanco Cefepime Diflucan Diagnosis: Chest x-ray on admission revealed no evidence of acute cardiopulmonary process Urinalysis on admission was positive for nitrite leukocyte esterase and few bacteria Physical examination: Chronically ill-appearing vegetative middle-aged man who is in no distress. Head atraumatic neck is supple chest rise symmetrical breath sounds diminished bases. Heart: S1-S2. Abdomen soft bowel sounds present. Extremities contractured Assessment: 1. Sepsis, present on admission 2. Gram-positive cocci bacteremia cw contaminant 3. UTI ==> GNR 4. Occipital area skin lesion, status post biopsy 5. Vegetative state 6. Onychomycosis of toenails Plan: Stable, continue antibiotics, f/u urine culture and biopsy results, f/u pro-calcitonin level Consultation Date/Type/Reason Admit Date/Time Nov 23, 2018 at 09:56 Initial Consult Date 11/22/18 Type of Consult id Requesting Provider: DB SUMMERS Date/Time of Note DATE: 11/26/18 TIME: 10:59 Exam/Review of Systems Exam Vitals Vital Signs Date Temp Pulse Resp B/P (MAP) Pulse Ox O2 O2 Flow FiO2 Time Delivery Rate 11/26/18 88 19 97 40 09:20 11/26/18 99.6 135/78 08:02 (97) Intake and Output 11/25/18 11/25/18 11/26/18 1515:00 23:00 07:00 IntakeIntake Total 300 ml 1020 ml OutputOutput Total 450 ml BalanceBalance 300 ml 570 ml Results Result Diagram: 11/26/18 0521 11/26/18 0521 Results 24hrs Laboratory Tests Test 11/25/18 16:57 11/26/18 05:21 Vancomycin Level Trough 9.6 L White Blood Count 8.5 Red Blood Count 3.53 L Hemoglobin 9.9 L Hematocrit 32.0 L Mean Corpuscular Volume 90.7 Mean Corpuscular Hemoglobin 28.0 L Mean Corpuscular Hemoglobin Concent 30.9 L Red Cell Distribution Width 15.7 H Platelet Count 235 Mean Platelet Volume 11.5 H Immature Granulocytes % 0.800 H Neutrophils % 63.4 Lymphocytes % 19.3 Monocytes % 10.7 Eosinophils % 5.2 Basophils % 0.6 Nucleated Red Blood Cells % 0.0 Immature Granulocytes # 0.070 H Neutrophils # 5.4 Lymphocytes # 1.6 Monocytes # 0.9 Eosinophils # 0.4 Basophils # 0.1 Nucleated Red Blood Cells # 0.0 Sodium Level 141 Potassium Level 4.5 Chloride Level 108 Carbon Dioxide Level 24 Anion Gap 9 Blood Urea Nitrogen 18 Creatinine 0.44 L Est Glomerular Filtrat Rate mL/min > 60 Glucose Level 104 Lactic Acid Level 1.3 Calcium Level 9.0 Medications Medication Current Medications Ascorbic Acid (Vitamin C) 500 mg DAILY GTB Last administered on 11/26/18 09:16; Admin Dose 500 MG; Start 11/22/18 at 09:00 Aspirin (Halfprin) 81 mg DAILY PO Last administered on 11/26/18 09:16; Admin Dose 81 MG; Start 11/22/18 at 09:00 Chlorhexidine Gluconate (Peridex) 15 ml Q12H MM Last administered on 11/26/18 05:16; Admin Dose 15 ML; Start 11/21/18 at 16:30 Multivitamins/ Minerals (Theragran-M) 1 tab DAILY PO Last administered on 11/26/18 09:16; Admin Dose 1 TAB; Start 11/22/18 at 09:00 IV Flush (NS 3 ml) 3 ml PER PROTOCOL IV ; Start 11/21/18 at 16:30 Lorazepam (Ativan) 0.5 mg Q6H PRN IV .ANXIETY Last administered on 11/24/18 23:25; Admin Dose 0.5 MG; Start 11/21/18 at 16:30 Ondansetron HCl (Zofran Inj) 4 mg Q6H PRN IV NAUSEA/VOMITING; Start 11/21/18 at 16:30 Acetaminophen (Tylenol Tab) 650 mg Q6H PRN PO .PAIN 1-3 OR TEMP Last administered on 11/25/18 04:02; Admin Dose 650 MG; Start 11/21/18 at 16:30 Docusate Sodium (Colace) 100 mg Q12H PRN PO .CONSTIPATION; Start 11/21/18 at 16:30 Magnesium Hydroxide (Milk Of Mag) 30 ml DAILY PRN PO .CONSTIPATION; Start 11/21/18 at 16:30 Enoxaparin Sodium (Lovenox) 30 mg DAILY SC Last administered on 11/26/18 09:20; Admin Dose 30 MG; Start 11/22/18 at 09:00 Albuterol/ Ipratropium (Duoneb) 3 ml Q4H RESP THERAPY PRN HHN SHORTNESS OF BREATH; Start 11/21/18 at 16:30 Levetiracetam (Keppra Liquid) 1,000 mg Q8 GTB Last administered on 11/26/18 05:50; Admin Dose 1,000 MG; Start 11/21/18 at 20:52 Docusate Sodium (Colace Liquid Cup) 100 mg QHS GTB Last administered on 11/25/18at 22:11; Admin Dose 100 MG; Start 11/21/18 at 21:00 Famotidine (Pepcid) 20 mg Q12 GTB Last administered on 11/26/18 09:16; Admin Dose 20 MG; Start 11/21/18 at 21:00 Miscellaneous Information (Pending [facility] Order For Wound Care) This patient garcia... PRN PRN XX WOUND CARE; Start 11/22/18 at 06:00 Cefepime HCl 50 ml @ 100 mls/hr Q12 IVPB Last administered on 11/26/18 09:16; Admin Dose 100 MLS/HR; Start 11/23/18 at 21:00 Vancomycin HCl (Vanco Iv Per Pharmacy) VANCOMYCIN PER PHARMACY PER PROTOCOL XX ; Start 11/24/18 at 05:00 Fluconazole (Diflucan) 100 mg DAILY NGT Last administered on 11/26/18 09:16; Admin Dose 100 MG; Start 11/24/18 at 15:30 Vancomycin HCl 1.25 gm/Sodium Chloride 250 ml @ 83.333 mls/ hr Q12H IVPB Last administered on 11/26/18 05:50; Admin Dose 83.333 MLS/HR; Start 11/26/18 at 06:00 ERNESTO MCADAMS NP Nov 26, 2018 11:01
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
[2018-11-26] MEDS: ACETAMINOPHEN 325 MG TAB PO PRN (13:19)
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
[2018-11-26] MEDS: DOCUSATE SODIUM 10 MG/ML (10ML CUP) GTB SCH (21:21)
[2018-11-27] VITALS (24 sets, daily range): BP systolic 94–137; BP diastolic 62–76; PULSE 65–105; RESP 14–20
[2018-11-27] MEDS: CHLORHEXIDINE GLUCONATE 15 ML UD CUP MM SCH ×2 (03:58→16:59)
[2018-11-27] MEDS: LORAZEPAM 2 MG INJ IV PRN (03:58)
[2018-11-27] MEDS: LEVETIRACETAM (100 MG/ML) 5ML CUP GTB SCH ×3 (05:48→20:19)
[2018-11-27] MEDS: VANCOMYCIN HCL 1.25 GM in SOD CHLORIDE 0.9% 250 ML IVPB SCH ×2 (05:48→17:01)
[2018-11-27] MEDS: MULTIVITAMINS/MINERALS TAB PO SCH (09:37)
[2018-11-27] MEDS: FAMOTIDINE 20 MG TAB GTB SCH ×2 (09:37→20:19)
[2018-11-27] MEDS: CEFEPIME 1GM/50 ML (PMX) 50 ML IVPB SCH ×2 (09:37→20:19)
[2018-11-27] MEDS: FLUCONAZOLE 100 MG TAB NGT SCH (09:37)
[2018-11-27] MEDS: ASPIRIN (EC) 81 MG TAB PO SCH (09:37)
[2018-11-27] MEDS: ASCORBIC ACID 500 MG TAB GTB SCH (09:37)
[2018-11-27] MEDS: BALSAM PERU/CASTOR OIL 60 GM TUBE TOP SCH (09:38)
[2018-11-27] MEDS: ENOXAPARIN 30 MG/0.3 ML SYG SC SCH (09:48)
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
[2018-11-27] MEDS: ACETAMINOPHEN 325 MG TAB PO PRN (13:29)
--- NOTE | 2018-11-27 13:37 | CONS ---
Assessment/Plan Assessment/Plan Hospital Course (Demo Recall) No acute changes, looks comfortable, no fevers Microbiology: Blood culture grew staph 1 set, urine culture growing Proteus and Enterococcus, repeat blood cultures negative Indwelling: Trach PEG suprapubic catheter Antimicrobials: Vanco Cefepime Diflucan Diagnosis: Chest x-ray on admission revealed no evidence of acute cardiopulmonary process Urinalysis on admission was positive for nitrite leukocyte esterase and few bacteria Physical examination: Chronically ill-appearing vegetative middle-aged man who is in no distress. Head atraumatic neck is supple chest rise symmetrical breath sounds diminished bases. Heart: S1-S2. Abdomen soft bowel sounds present. Extremities contractured Assessment: 1. Sepsis, present on admission 2. Gram-positive cocci bacteremia cw contaminant 3. UTI ==> GNR 4. Occipital area skin lesion, status post biopsy 5. Vegetative state 6. Onychomycosis of toenails Plan: Remains unchanged, stable, continue antibiotics, f/u biopsy results, pro- calcitonin level Consultation Date/Type/Reason Admit Date/Time Nov 23, 2018 at 09:56 Initial Consult Date 11/22/18 Type of Consult id Requesting Provider: DB SUMMERS Date/Time of Note DATE: 11/27/18 TIME: 13:36 Exam/Review of Systems Exam Vitals Vital Signs Date Temp Pulse Resp B/P (MAP) Pulse Ox O2 O2 Flow FiO2 Time Delivery Rate 11/27/18 103 12:01 11/27/18 14 98 40 11:57 11/27/18 99.2 127/76 11:05 (93) Intake and Output 11/26/18 11/26/18 11/27/18 1515:00 23:00 07:00 IntakeIntake Total 1270 ml 1000 ml 1280 ml OutputOutput Total 1200 ml 800 ml 1400 ml BalanceBalance 70 ml 200 ml -120 ml Results Result Diagram: 11/27/187 11/27/18446 Results 24hrs Laboratory Tests Test 11/27/18 04:47 White Blood Count 8.7 Red Blood Count 3.59 L Hemoglobin 10.1 L Hematocrit 32.0 L Mean Corpuscular Volume 89.1 Mean Corpuscular Hemoglobin 28.1 L Mean Corpuscular Hemoglobin Concent 31.6 L Red Cell Distribution Width 15.5 H Platelet Count 247 Mean Platelet Volume 11.2 H Immature Granulocytes % 0.600 H Neutrophils % 59.5 Lymphocytes % 24.2 Monocytes % 9.3 Eosinophils % 5.8 Basophils % 0.6 Nucleated Red Blood Cells % 0.0 Immature Granulocytes # 0.050 H Neutrophils # 5.2 Lymphocytes # 2.1 Monocytes # 0.8 Eosinophils # 0.5 Basophils # 0.1 Nucleated Red Blood Cells # 0.0 Sodium Level 141 Potassium Level 3.9 Chloride Level 105 Carbon Dioxide Level 25 Anion Gap 11 Blood Urea Nitrogen 15 Creatinine 0.45 L Est Glomerular Filtrat Rate mL/min > 60 Glucose Level 97 Calcium Level 9.6 Medications Medication Current Medications Ascorbic Acid (Vitamin C) 500 mg DAILY GTB Last administered on 11/27/18 09:37; Admin Dose 500 MG; Start 11/22/18 at 09:00 Aspirin (Halfprin) 81 mg DAILY PO Last administered on 11/27/18 09:37; Admin Dose 81 MG; Start 11/22/18 at 09:00 Chlorhexidine Gluconate (Peridex) 15 ml Q12H MM Last administered on 11/27/18 03:58; Admin Dose 15 ML; Start 11/21/18 at 16:30 Multivitamins/ Minerals (Theragran-M) 1 tab DAILY PO Last administered on 11/27/18 09:37; Admin Dose 1 TAB; Start 11/22/18 at 09:00 IV Flush (NS 3 ml) 3 ml PER PROTOCOL IV ; Start 11/21/18 at 16:30 Lorazepam (Ativan) 0.5 mg Q6H PRN IV .ANXIETY Last administered on 11/27/18 03:58; Admin Dose 0.5 MG; Start 11/21/18 at 16:30 Ondansetron HCl (Zofran Inj) 4 mg Q6H PRN IV NAUSEA/VOMITING; Start 11/21/18 at 16:30 Acetaminophen (Tylenol Tab) 650 mg Q6H PRN PO .PAIN 1-3 OR TEMP Last administered on 11/27/18 13:29; Admin Dose 650 MG; Start 11/21/18 at 16:30 Docusate Sodium (Colace) 100 mg Q12H PRN PO .CONSTIPATION; Start 11/21/18 at 16:30 Magnesium Hydroxide (Milk Of Mag) 30 ml DAILY PRN PO .CONSTIPATION; Start 11/21/18 at 16:30 Enoxaparin Sodium (Lovenox) 30 mg DAILY SC Last administered on 11/27/18 09:48; Admin Dose 30 MG; Start 11/22/18 at 09:00 Albuterol/ Ipratropium (Duoneb) 3 ml Q4H RESP THERAPY PRN HHN SHORTNESS OF BREATH; Start 11/21/18 at 16:30 Levetiracetam (Keppra Liquid) 1,000 mg Q8 GTB Last administered on 11/27/18 13: 07; Admin Dose 1,000 MG; Start 11/21/18 at 20:52 Docusate Sodium (Colace Liquid Cup) 100 mg QHS GTB Last administered on 11/26/18 21:21; Admin Dose 100 MG; Start 11/21/18 at 21:00 Famotidine (Pepcid) 20 mg Q12 GTB Last administered on 11/27/18 09:37; Admin Dose 20 MG; Start 11/21/18 at 21:00 Miscellaneous Information (Pending [facility] Order For Wound Care) This patient garcia... PRN PRN XX WOUND CARE; Start 11/22/18 at 06:00 Cefepime HCl 50 ml @ 100 mls/hr Q12 IVPB Last administered on 11/27/18 09:37; Admin Dose 100 MLS/HR; Start 11/23/18 at 21:00 Vancomycin HCl (Vanco Iv Per Pharmacy) VANCOMYCIN PER PHARMACY PER PROTOCOL XX ; Start 11/24/18 at 05:00 Fluconazole (Diflucan) 100 mg DAILY NGT Last administered on 11/27/18 09:37; Admin Dose 100 MG; Start 11/24/18 at 15:30 Vancomycin HCl 1.25 gm/Sodium Chloride 250 ml @ 83.333 mls/ hr Q12H IVPB Last administered on 11/27/18 05:48; Admin Dose 83.333 MLS/HR; Start 11/26/18 at 06:00 Miscellaneous Information (*Rx Drug Level Order Reminder*) VANCO TR LEVEL PRIOR... ONCE ONCE XX ; Start 11/27/18 at 17:00; Stop 11/27/18 at 17:01 ERNESTO MCADAMS NP Nov 27, 2018 13:37
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
[2018-11-27] MEDS: DOCUSATE SODIUM 10 MG/ML (10ML CUP) GTB SCH (20:39)
[2018-11-28] VITALS (22 sets, daily range): BP systolic 93–122; BP diastolic 53–78; PULSE 60–91; RESP 14–20
[2018-11-28] MEDS: LEVETIRACETAM (100 MG/ML) 5ML CUP GTB SCH ×3 (05:30→21:44)
[2018-11-28] MEDS: VANCOMYCIN HCL 1.25 GM in SOD CHLORIDE 0.9% 250 ML IVPB SCH (05:30)
[2018-11-28] MEDS: CHLORHEXIDINE GLUCONATE 15 ML UD CUP MM SCH ×2 (05:30→15:54)
[2018-11-28] MEDS: FLUCONAZOLE 100 MG TAB NGT SCH (08:48)
[2018-11-28] MEDS: CEFEPIME 1GM/50 ML (PMX) 50 ML IVPB SCH ×2 (08:48→21:44)
[2018-11-28] MEDS: FAMOTIDINE 20 MG TAB GTB SCH ×2 (08:48→21:44)
[2018-11-28] MEDS: ASPIRIN (EC) 81 MG TAB PO SCH (08:48)
[2018-11-28] MEDS: ASCORBIC ACID 500 MG TAB GTB SCH (08:48)
[2018-11-28] MEDS: MULTIVITAMINS/MINERALS TAB PO SCH (08:48)
[2018-11-28] MEDS: BALSAM PERU/CASTOR OIL 60 GM TUBE TOP SCH (08:49)
[2018-11-28] MEDS: ENOXAPARIN 30 MG/0.3 ML SYG SC SCH (09:34)
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
--- NOTE | 2018-11-28 16:32 | CONS ---
Assessment/Plan Assessment/Plan Hospital Course (Demo Recall) No acute changes Microbiology: Blood culture grew staph 1 set, urine culture growing Proteus and Enterococcus, repeat blood cultures negative Indwelling: Trach PEG suprapubic catheter Antimicrobials: Vanco Cefepime Diflucan Diagnosis: Chest x-ray on admission revealed no evidence of acute cardiopulmonary process Urinalysis on admission was positive for nitrite leukocyte esterase and few bacteria Physical examination: Chronically ill-appearing vegetative middle-aged man who is in no distress. Head atraumatic neck is supple chest rise symmetrical breath sounds diminished bases. Heart: S1-S2. Abdomen soft bowel sounds present. Extremities contractured Assessment: 1. Sepsis, present on admission 2. Gram-positive cocci bacteremia cw contaminant 3. UTI ==> GNR 4. Occipital area skin lesion, status post biopsy 5. Vegetative state 6. Onychomycosis of toenails Plan: Remains unchanged, continue antibiotics to complete 7 days, f/u biopsy results. Change Vanco to Ampicillin Consultation Date/Type/Reason Admit Date/Time Nov 23, 2018 at 09:56 Initial Consult Date 11/22/18 Type of Consult id Requesting Provider: DB SUMMERS Date/Time of Note DATE: 11/28/18 TIME: 16:29 Exam/Review of Systems Exam Vitals Vital Signs Date Temp Pulse Resp B/P (MAP) Pulse Ox O2 O2 Flow FiO2 Time Delivery Rate 11/28/18 98.0 60 18 101/58 99 15:38 (72) 11/28/18 30 15:10 Intake and Output 11/27/18 11/27/18 11/28/18 1515:00 23:00 07:00 IntakeIntake Total 50 ml 1300 ml 1020 ml OutputOutput Total 900 ml 1100 ml BalanceBalance 50 ml 400 ml -80 ml Results Result Diagram: 11/28/18 0542 11/28/18 0541 Results 24hrs Laboratory Tests Test 11/28/18 05:41 11/28/18 05:42 Sodium Level 141 Potassium Level 4.0 Chloride Level 105 Carbon Dioxide Level 24 Anion Gap 12 Blood Urea Nitrogen 19 Creatinine 0.47 L Est Glomerular Filtrat Rate mL/min > 60 Glucose Level 114 Calcium Level 9.4 White Blood Count 9.4 Red Blood Count 3.83 L Hemoglobin 10.6 L Hematocrit 34.1 L Mean Corpuscular Volume 89.0 Mean Corpuscular Hemoglobin 27.7 L Mean Corpuscular Hemoglobin Concent 31.1 L Red Cell Distribution Width 15.6 H Platelet Count 272 Mean Platelet Volume 11.1 H Immature Granulocytes % 0.900 H Neutrophils % 67.7 Lymphocytes % 17.9 Monocytes % 7.9 Eosinophils % 5.0 Basophils % 0.6 Nucleated Red Blood Cells % 0.0 Immature Granulocytes # 0.080 H Neutrophils # 6.4 Lymphocytes # 1.7 Monocytes # 0.7 Eosinophils # 0.5 Basophils # 0.1 Nucleated Red Blood Cells # 0.0 Medications Medication Current Medications Ascorbic Acid (Vitamin C) 500 mg DAILY GTB Last administered on 11/28/18 08:48; Admin Dose 500 MG; Start 11/22/18 at 09:00 Aspirin (Halfprin) 81 mg DAILY PO Last administered on 11/28/18 08:48; Admin Dose 81 MG; Start 11/22/18 at 09:00 Chlorhexidine Gluconate (Peridex) 15 ml Q12H MM Last administered on 11/28/18 15:54; Admin Dose 15 ML; Start 11/21/18 at 16:30 Multivitamins/ Minerals (Theragran-M) 1 tab DAILY PO Last administered on 11/28/18 08:48; Admin Dose 1 TAB; Start 11/22/18 at 09:00 IV Flush (NS 3 ml) 3 ml PER PROTOCOL IV ; Start 11/21/18 at 16:30 Lorazepam (Ativan) 0.5 mg Q6H PRN IV .ANXIETY Last administered on 11/27/18 03:58; Admin Dose 0.5 MG; Start 11/21/18 at 16:30 Ondansetron HCl (Zofran Inj) 4 mg Q6H PRN IV NAUSEA/VOMITING; Start 11/21/18 at 16:30 Acetaminophen (Tylenol Tab) 650 mg Q6H PRN PO .PAIN 1-3 OR TEMP Last administered on 11/27/18 13:29; Admin Dose 650 MG; Start 11/21/18 at 16:30 Docusate Sodium (Colace) 100 mg Q12H PRN PO .CONSTIPATION; Start 11/21/18 at 16: 30 Magnesium Hydroxide (Milk Of Mag) 30 ml DAILY PRN PO .CONSTIPATION; Start 11/21/18 at 16:30 Enoxaparin Sodium (Lovenox) 30 mg DAILY SC Last administered on 11/28/18 09:34; Admin Dose 30 MG; Start 11/22/18 at 09:00 Albuterol/ Ipratropium (Duoneb) 3 ml Q4H RESP THERAPY PRN HHN SHORTNESS OF BREATH; Start 11/21/18 at 16:30 Levetiracetam (Keppra Liquid) 1,000 mg Q8 GTB Last administered on 11/28/18 13:21; Admin Dose 1,000 MG; Start 11/21/18 at 20:52 Docusate Sodium (Colace Liquid Cup) 100 mg QHS GTB Last administered on 11/27/18 20:39; Admin Dose 100 MG; Start 11/21/18 at 21:00 Famotidine (Pepcid) 20 mg Q12 GTB Last administered on 11/28/18 08:48; Admin Dose 20 MG; Start 11/21/18 at 21:00 Miscellaneous Information (Pending [facility] Order For Wound Care) This patient garcia... PRN PRN XX WOUND CARE; Start 11/22/18 at 06:00 Cefepime HCl 50 ml @ 100 mls/hr Q12 IVPB Last administered on 11/28/18 08:48; Admin Dose 100 MLS/HR; Start 11/23/18 at 21:00 Vancomycin HCl (Vanco Iv Per Pharmacy) VANCOMYCIN PER PHARMACY PER PROTOCOL XX ; Start 11/24/18 at 05:00 Fluconazole (Diflucan) 100 mg DAILY NGT Last administered on 11/28/18 08:48; Admin Dose 100 MG; Start 11/24/18 at 15:30 Vancomycin HCl 1.25 gm/Sodium Chloride 250 ml @ 83.333 mls/ hr Q12H IVPB Last administered on 11/28/18 05:30; Admin Dose 83.333 MLS/HR; Start 11/26/18 at 06:00 ERNESTO MCADAMS NP Nov 28, 2018 16:32
[2018-11-28] MEDS: DOCUSATE SODIUM 10 MG/ML (10ML CUP) GTB SCH (21:44)
[2018-11-28] MEDS: AMPICILLIN 500 MG CAP PO SCH (22:39)
[2018-11-29] VITALS (22 sets, daily range): BP systolic 94–119; BP diastolic 59–85; PULSE 78–107; RESP 14–23
[2018-11-29] MEDS: LEVETIRACETAM (100 MG/ML) 5ML CUP GTB SCH ×3 (05:51→21:55)
[2018-11-29] MEDS: AMPICILLIN 500 MG CAP PO SCH ×3 (05:51→21:54)
[2018-11-29] MEDS: CHLORHEXIDINE GLUCONATE 15 ML UD CUP MM SCH ×2 (05:51→17:28)
[2018-11-29] MEDS: TERBINAFINE 250 MG TAB GTB SCH (09:03)
[2018-11-29] MEDS: CEFEPIME 1GM/50 ML (PMX) 50 ML IVPB SCH ×2 (09:03→21:19)
[2018-11-29] MEDS: FAMOTIDINE 20 MG TAB GTB SCH ×2 (09:03→21:19)
[2018-11-29] MEDS: MULTIVITAMINS/MINERALS TAB PO SCH (09:03)
[2018-11-29] MEDS: ASCORBIC ACID 500 MG TAB GTB SCH (09:03)
[2018-11-29] MEDS: ASPIRIN (EC) 81 MG TAB PO SCH (09:03)
[2018-11-29] MEDS: BALSAM PERU/CASTOR OIL 60 GM TUBE TOP SCH (09:05)
[2018-11-29] MEDS: ENOXAPARIN 30 MG/0.3 ML SYG SC SCH (09:08)
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
--- NOTE | 2018-11-29 13:29 | CONS ---
Assessment/Plan Assessment/Plan Hospital Course (Demo Recall) No acute changes, noncommunicative, afebrile, nad Microbiology: Blood culture grew staph 1 set, urine culture growing Proteus and Enterococcus, repeat blood cultures negative Indwelling: Trach PEG suprapubic catheter Antimicrobials: Ampicillin Cefepime Lamisil Diagnosis: Chest x-ray on admission revealed no evidence of acute cardiopulmonary process Urinalysis on admission was positive for nitrite leukocyte esterase and few bacteria Physical examination: Chronically ill-appearing vegetative middle-aged man who is in no distress. Head atraumatic neck is supple chest rise symmetrical breath sounds diminished bases. Heart: S1-S2. Abdomen soft bowel sounds present. Extremities contractured Assessment: 1. Sepsis, present on admission 2. Gram-positive cocci bacteremia cw contaminant 3. UTI ==> GNR 4. Occipital area skin lesion, status post biopsy 5. Vegetative state 6. Onychomycosis of toenails Plan: Remains unchanged, continue antibiotics to complete 7 days, f/u biopsy results. Consultation Date/Type/Reason Admit Date/Time Nov 23, 2018 at 09:56 Initial Consult Date 11/22/18 Type of Consult id Requesting Provider: DB SUMMERS Date/Time of Note DATE: 11/29/18 TIME: 13:27 Exam/Review of Systems Exam Vitals Vital Signs Date Temp Pulse Resp B/P (MAP) Pulse Ox O2 O2 Flow FiO2 Time Delivery Rate 11/29/18 107 13:11 11/29/18 99.0 18 112/59 100 12:21 (76) 11/29/18 30 11:50 Intake and Output 11/28/18 11/28/18 11/29/18 1515:00 23:00 07:00 IntakeIntake Total 300 ml 1050 ml 960 ml OutputOutput Total 900 ml 350 ml BalanceBalance 300 ml 150 ml 610 ml Results Result Diagram: 11/28/18 0542 11/28/18 0541 Medications Medication Current Medications Ascorbic Acid (Vitamin C) 500 mg DAILY GTB Last administered on 11/29/18at 09:03; Admin Dose 500 MG; Start 11/22/18 at 09:00 Aspirin (Halfprin) 81 mg DAILY PO Last administered on 11/29/18at 09:03; Admin Dose 81 MG; Start 11/22/18 at 09:00 Chlorhexidine Gluconate (Peridex) 15 ml Q12H MM Last administered on 11/29/18 05:51; Admin Dose 15 ML; Start 11/21/18 at 16:30 Multivitamins/ Minerals (Theragran-M) 1 tab DAILY PO Last administered on 11/29/18 09:03; Admin Dose 1 TAB; Start 11/22/18 at 09:00 IV Flush (NS 3 ml) 3 ml PER PROTOCOL IV ; Start 11/21/18 at 16:30 Lorazepam (Ativan) 0.5 mg Q6H PRN IV .ANXIETY Last administered on 11/27/18 03:58; Admin Dose 0.5 MG; Start 11/21/18 at 16:30 Ondansetron HCl (Zofran Inj) 4 mg Q6H PRN IV NAUSEA/VOMITING; Start 11/21/18 at 16:30 Acetaminophen (Tylenol Tab) 650 mg Q6H PRN PO .PAIN 1-3 OR TEMP Last administered on 11/27/18 13:29; Admin Dose 650 MG; Start 11/21/18 at 16:30 Docusate Sodium (Colace) 100 mg Q12H PRN PO .CONSTIPATION; Start 11/21/18 at 16:30 Magnesium Hydroxide (Milk Of Mag) 30 ml DAILY PRN PO .CONSTIPATION; Start 11/21/18 at 16:30 Enoxaparin Sodium (Lovenox) 30 mg DAILY SC Last administered on 11/29/18 09:08; Admin Dose 30 MG; Start 11/22/18 at 09:00 Albuterol/ Ipratropium (Duoneb) 3 ml Q4H RESP THERAPY PRN HHN SHORTNESS OF BREATH; Start 11/21/18 at 16:30 Levetiracetam (Keppra Liquid) 1,000 mg Q8 GTB Last administered on 11/29/18 05:51; Admin Dose 1,000 MG; Start 11/21/18 at 20:52 Docusate Sodium (Colace Liquid Cup) 100 mg QHS GTB Last administered on 11/28/18 21:44; Admin Dose 100 MG; Start 11/21/18 at 21:00 Famotidine (Pepcid) 20 mg Q12 GTB Last administered on 11/29/18 09:03; Admin Dose 20 MG; Start 11/21/18 at 21:00 Miscellaneous Information (Pending [facility] Order For Wound Care) This patient garcia... PRN PRN XX WOUND CARE; Start 11/22/18 at 06:00 Cefepime HCl 50 ml @ 100 mls/hr Q12 IVPB Last administered on 11/29/18at 09:03; Admin Dose 100 MLS/HR; Start 11/23/18 at 21:00 Ampicillin (Ampicillin) 500 mg Q8 PO Last administered on 11/29/18at 05:51; Admin Dose 500 MG; Start 11/28/18 at 22:00 Terbinafine HCl (Lamisil) 250 mg DAILY GTB Last administered on 11/29/18at 09:03; Admin Dose 250 MG; Start 11/29/18 at 09:00 ERNESTO MCADAMS NP Nov 29, 2018 13:28
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
[2018-11-29] MEDS: METOCLOPRAMIDE 10 MG INJ IV SCH ×2 (17:28→23:50)
[2018-11-29] MEDS ORDERED: NA PHOSPHATE/BIPHOS 133 ML ENEMA PR STA (19:30)
[2018-11-29] MEDS ORDERED: MAGNESIUM CITRATE 300 ML BTL PO ONE (20:00)
[2018-11-29] MEDS: DOCUSATE SODIUM 10 MG/ML (10ML CUP) GTB SCH (21:18)
[2018-11-30] VITALS (23 sets, daily range): BP systolic 98–128; BP diastolic 65–86; PULSE 72–104; RESP 14–23
--- NOTE | 2018-11-30 00:47 | CONS ---
DATE OF ADMISSION: 11/23/2018 DATE OF CONSULTATION: TYPE OF CONSULTATION: Gastroenterology. From Tomas Smith MD, to Ko Freedman MD REASON FOR CONSULTATION: Abdominal distention, nausea, vomiting. HISTORY OF PRESENT ILLNESS: A 43-year-old male quadriplegia secondary to spinal cord injury, chronic anoxic encephalopathy, vent dependent respiratory failure, G-tube, neurogenic bladder with urostomy, who was transferred from nursing facility for multiple lesions over the posterior aspect of the head and the neck for a possible biopsy. GI consult was called in because of abdominal distention, nause a, vomiting. No history could be obtained from the patient. Most of the information gathered by rev iewing the chart. PAST SURGICAL HISTORY: As described. FAMILY HISTORY: Nothing significant. SOCIAL HISTORY: Does not smoke or drink. PHYSICAL EXAMINATION: GENERAL: Patient is quadriplegic, on vent. Does not communicate. CARDIOVASCULAR: No murmur. LUNGS: Air entry good. ABDOMEN: Distended. G-tube is in place. No peritonitis. EXTREMITIES: All contracted. LABORATORY DATA: The KUB shows a fecal impaction with mildly dilated colon. BNP is grossly within n ormal limits. CBC yesterday was normal. IMPRESSION: 1. Fecal impaction with gaseous distention of the colon. 2. Status post PEG. 3. Quadriplegia. 4. Skin lesion, probably focal chronic folliculitis. 5. Quadriplegia. PLAN: To disimpact manually and also with the Fleet enema and also will give 1 dose of mag citrate. In the interim, we will keep the patient n.p.o. and continue Reglan around the clock for his nausea and vomiting. Dictated By: TOMAS MEJIA/NTS Conf#: [id number] DID#: [id number] CC: KO FREEDMAN MD;*EndCC*
[2018-11-30] MEDS: CHLORHEXIDINE GLUCONATE 15 ML UD CUP MM SCH ×2 (04:44→15:18)
[2018-11-30] MEDS: AMPICILLIN 500 MG CAP PO SCH ×3 (05:57→22:27)
[2018-11-30] MEDS: METOCLOPRAMIDE 10 MG INJ IV SCH ×3 (05:57→17:57)
[2018-11-30] MEDS: LEVETIRACETAM (100 MG/ML) 5ML CUP GTB SCH ×3 (05:57→22:27)
[2018-11-30] MEDS: ASCORBIC ACID 500 MG TAB GTB SCH (09:00)
[2018-11-30] MEDS: CEFEPIME 1GM/50 ML (PMX) 50 ML IVPB SCH ×2 (10:07→20:45)
[2018-11-30] MEDS: BALSAM PERU/CASTOR OIL 60 GM TUBE TOP SCH (10:10)
[2018-11-30] MEDS: ASPIRIN (EC) 81 MG TAB PO SCH (10:11)
[2018-11-30] MEDS: TERBINAFINE 250 MG TAB GTB SCH (10:11)
[2018-11-30] MEDS: MULTIVITAMINS/MINERALS TAB PO SCH (10:11)
[2018-11-30] MEDS: FAMOTIDINE 20 MG TAB GTB SCH ×2 (10:11→20:45)
[2018-11-30] MEDS: ENOXAPARIN 30 MG/0.3 ML SYG SC SCH (10:13)
[2018-11-30] MEDS ORDERED: IOHEXOL 14.3 MG(I)/ML (ADULT) BTL PO ONE ×2 (11:00→11:30)
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
--- NOTE | 2018-11-30 20:01 | CONS ---
Assessment/Plan Assessment/Plan Assessment/Plan (Daily) IMPRESSION: 1. Fecal impaction with gaseous distention of the colon. And responded very well to enema and magnesium citrate. His abdomen is totally benign 2. Status post PEG. 3. Quadriplegia. 4. Skin lesion, probably focal chronic folliculitis. 5. Quadriplegia. Plan Resume feeding through the G-tube and gradually increase it Stool softener on a regular basis Consultation Date/Type/Reason Admit Date/Time Nov 23, 2018 at 09:56 Initial Consult Date 11/22/18 Requesting Provider: DB SUMMERS Date/Time of Note DATE: 11/30/18 TIME: 20:00 24 HR Interval Summary Constitutional: improved Exam/Review of Systems Exam Vitals Vital Signs Date Temp Pulse Resp B/P (MAP) Pulse Ox O2 O2 Flow FiO2 Time Delivery Rate 11/30/18 98.6 95 18 98/65 (76) 99 19:00 11/30/18 30 16:50 Intake and Output 11/29/18 11/29/18 11/30/18 1414:59 22:59 06:59 IntakeIntake Total 150 ml 500 ml OutputOutput Total 200 ml 500 ml BalanceBalance -50 ml 0 ml Musculoskeletal: muscle weakness Neurological: unresponsive Results Result Diagram: 11/28/18 0542 11/28/18 0541 Medications Medication Current Medications Ascorbic Acid (Vitamin C) 500 mg DAILY GTB Last administered on 11/29/18at 09:03; Admin Dose 500 MG; Start 11/22/18 at 09:00 Aspirin (Halfprin) 81 mg DAILY PO Last administered on 11/30/18at 10:11; Admin Dose 81 MG; Start 11/22/18 at 09:00 Chlorhexidine Gluconate (Peridex) 15 ml Q12H MM Last administered on 11/30/18at 15:18; Admin Dose 15 ML; Start 11/21/18 at 16:30 Multivitamins/ Minerals (Theragran-M) 1 tab DAILY PO Last administered on 11/30/18at 10:11; Admin Dose 1 TAB; Start 11/22/18 at 09:00 IV Flush (NS 3 ml) 3 ml PER PROTOCOL IV ; Start 11/21/18 at 16:30 Lorazepam (Ativan) 0.5 mg Q6H PRN IV .ANXIETY Last administered on 11/27/18 03:58; Admin Dose 0.5 MG; Start 11/21/18 at 16:30 Ondansetron HCl (Zofran Inj) 4 mg Q6H PRN IV NAUSEA/VOMITING; Start 11/21/18 at 16:30 Acetaminophen (Tylenol Tab) 650 mg Q6H PRN PO .PAIN 1-3 OR TEMP Last administer ed on 11/27/18 13:29; Admin Dose 650 MG; Start 11/21/18 at 16:30 Docusate Sodium (Colace) 100 mg Q12H PRN PO .CONSTIPATION; Start 11/21/18 at 16:30 Magnesium Hydroxide (Milk Of Mag) 30 ml DAILY PRN PO .CONSTIPATION Last administered on 11/29/18 17:40; Admin Dose 30 ML; Start 11/21/18 at 16:30 Enoxaparin Sodium (Lovenox) 30 mg DAILY SC Last administered on 11/30/18 10:13; Admin Dose 30 MG; Start 11/22/18 at 09:00 Albuterol/ Ipratropium (Duoneb) 3 ml Q4H RESP THERAPY PRN HHN SHORTNESS OF BREATH; Start 11/21/18 at 16:30 Levetiracetam (Keppra Liquid) 1,000 mg Q8 GTB Last administered on 11/30/18 13:55; Admin Dose 1,000 MG; Start 11/21/18 at 20:52 Docusate Sodium (Colace Liquid Cup) 100 mg QHS GTB Last administered on 11/29/18 21:18; Admin Dose 100 MG; Start 11/21/18 at 21:00 Famotidine (Pepcid) 20 mg Q12 GTB Last administered on 11/30/18 10:11; Admin Dose 20 MG; Start 11/21/18 at 21:00 [facility]isc[facility] This patient garcia... PRN PRN XX WOUND CARE; Start 11/22/18 at 06:00 Cefepime HCl 50 ml @ 100 mls/hr Q12 IVPB Last administered on 11/30/18 10:07; Admin Dose 100 MLS/HR; Start 11/23/18 at 21:00 Ampicillin (Ampicillin) 500 mg Q8 PO Last administered on 4/11/19at 13:55; Admin Dose 500 MG; Start 11/28/18 at 22:00 Terbinafine HCl (Lamisil) 250 mg DAILY GTB Last administered on 11/30/18at 10:11; Admin Dose 250 MG; Start 11/29/18 at 09:00 Metoclopramide HCl (Reglan) 10 mg Q6 IV Last administered on 11/30/18at 17:57; Admin Dose 10 MG; Start 11/29/18 at 18:00 LUDA COHEN MD Nov 30, 2018 20:01
[2018-11-30] MEDS: DOCUSATE SODIUM 10 MG/ML (10ML CUP) GTB SCH (20:45)
[2018-12-01] VITALS (21 sets, daily range): BP systolic 98–112; BP diastolic 58–80; PULSE 69–104; RESP 14–19
[2018-12-01] MEDS: CHLORHEXIDINE GLUCONATE 15 ML UD CUP MM SCH ×2 (04:35→17:43)
[2018-12-01] MEDS: LEVETIRACETAM (100 MG/ML) 5ML CUP GTB SCH ×3 (05:35→21:42)
[2018-12-01] MEDS: AMPICILLIN 500 MG CAP PO SCH ×2 (05:35→13:34)
[2018-12-01] MEDS: METOCLOPRAMIDE 10 MG INJ IV SCH ×5 (05:35→23:51)
[2018-12-01] MEDS: TERBINAFINE 250 MG TAB GTB SCH (10:13)
[2018-12-01] MEDS: ASCORBIC ACID 500 MG TAB GTB SCH (10:13)
[2018-12-01] MEDS: MULTIVITAMINS/MINERALS TAB PO SCH (10:13)
[2018-12-01] MEDS: ASPIRIN (EC) 81 MG TAB PO SCH (10:13)
[2018-12-01] MEDS: FAMOTIDINE 20 MG TAB GTB SCH ×2 (10:13→20:55)
[2018-12-01] MEDS: CEFEPIME 1GM/50 ML (PMX) 50 ML IVPB SCH (10:14)
[2018-12-01] MEDS: ENOXAPARIN 30 MG/0.3 ML SYG SC SCH (10:22)
[2018-12-01] MEDS: BALSAM PERU/CASTOR OIL 60 GM TUBE TOP SCH (12:20)
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
--- NOTE | 2018-12-01 17:29 | CONS ---
Assessment/Plan Assessment/Plan Assessment/Plan (Daily) Assessment/Plan Assessment/Plan (Daily) IMPRESSION: 1. Fecal impaction with gaseous distention of the colon. And responded very well to enema and magnesium citrate. His abdomen is totally benign 2. Status post PEG. 3. Quadriplegia. 4. Skin lesion, probably focal chronic folliculitis. 5. Quadriplegia. Plan Resume feeding through the G-tube and gradually increase it Stool softener on a regular basis MiraLAX 17 g twice daily Consultation Date/Type/Reason Admit Date/Time Nov 23, 2018 at 09:56 Initial Consult Date 11/22/18 Requesting Provider: DB SUMMERS Date/Time of Note DATE: 12/01/18 TIME: 17:28 24 HR Interval Summary Subjective hx not possible: pt non-verbal Exam/Review of Systems Exam Vitals Vital Signs Date Temp Pulse Resp B/P (MAP) Pulse Ox O2 O2 Flow FiO2 Time Delivery Rate 12/01/18 86 17 97 30 17:15 12/01/18 98.1 102/67 Trach 16:09 (79) Collar Intake and Output 11/30/18 11/30/18 12/01/18 1515:00 23:00 07:00 IntakeIntake Total 340 ml 730 ml OutputOutput Total 500 ml 600 ml BalanceBalance -160 ml 130 ml Respiratory: clear to auscultation, normal air movement Cardiovascular: regular rate and rhythm Gastrointestinal: soft, nl liver, spleen, non-tender Extremities: normal pulses Results Result Diagram: 12/01/18 0604 12/01/18 0604 Results 24hrs Laboratory Tests Test 12/01/18 06:04 White Blood Count 11.0 H Red Blood Count 3.71 L Hemoglobin 10.4 L Hematocrit 32.6 L Mean Corpuscular Volume 87.9 Mean Corpuscular Hemoglobin 28.0 L Mean Corpuscular Hemoglobin Concent 31.9 L Red Cell Distribution Width 15.9 H Platelet Count 282 Mean Platelet Volume 10.7 H Immature Granulocytes % 0.400 Neutrophils % 70.3 Lymphocytes % 18.9 Monocytes % 7.3 Eosinophils % 2.6 Basophils % 0.5 Nucleated Red Blood Cells % 0.0 Immature Granulocytes # 0.040 H Neutrophils # 7.7 H Lymphocytes # 2.1 Monocytes # 0.8 Eosinophils # 0.3 Basophils # 0.1 Nucleated Red Blood Cells # 0.0 Sodium Level 143 Potassium Level 3.3 L Chloride Level 107 Carbon Dioxide Level 26 Anion Gap 10 Blood Urea Nitrogen 27 H Creatinine 0.47 L Est Glomerular Filtrat Rate mL/min > 60 Glucose Level 125 Calcium Level 9.1 Medications Medication Current Medications Ascorbic Acid (Vitamin C) 500 mg DAILY GTB Last administered on 12/01/18 10:13; Admin Dose 500 MG; Start 11/22/18 at 09:00 Aspirin (Halfprin) 81 mg DAILY PO Last administered on 12/01/18 10:13; Admin Dose 81 MG; Start 11/22/18 at 09:00 Chlorhexidine Gluconate (Peridex) 15 ml Q12H MM Last administered on 12/01/18 04:35; Admin Dose 15 ML; Start 11/21/18 at 16:30 Multivitamins/ Minerals (Theragran-M) 1 tab DAILY PO Last administered on 12/01/18 10:13; Admin Dose 1 TAB; Start 11/22/18 at 09:00 IV Flush (NS 3 ml) 3 ml PER PROTOCOL IV ; Start 11/21/18 at 16:30 Lorazepam (Ativan) 0.5 mg Q6H PRN IV .ANXIETY Last administered on 11/27/18 03:58; Admin Dose 0.5 MG; Start 11/21/18 at 16:30 Ondansetron HCl (Zofran Inj) 4 mg Q6H PRN IV NAUSEA/VOMITING; Start 11/21/18 at 16:30 Acetaminophen (Tylenol Tab) 650 mg Q6H PRN PO .PAIN 1-3 OR TEMP Last administered on 11/27/18 13:29; Admin Dose 650 MG; Start 11/21/18 at 16:30 Docusate Sodium (Colace) 100 mg Q12H PRN PO .CONSTIPATION; Start 11/21/18 at 16:30 Magnesium Hydroxide (Milk Of Mag) 30 ml DAILY PRN PO .CONSTIPATION Last administered on 11/29/18 17:40; Admin Dose 30 ML; Start 11/21/18 at 16:30 Enoxaparin Sodium (Lovenox) 30 mg DAILY SC Last administered on 12/01/18 10:22; Admin Dose 30 MG; Start 11/22/18 at 09:00 Albuterol/ Ipratropium (Duoneb) 3 ml Q4H RESP THERAPY PRN HHN SHORTNESS OF BREATH; Start 11/21/18 at 16:30 Levetiracetam (Keppra Liquid) 1,000 mg Q8 GTB Last administered on 12/01/18 13:34; Admin Dose 1,000 MG; Start 11/21/18 at 20:52 Docusate Sodium (Colace Liquid Cup) 100 mg QHS GTB Last administered on 11/30/18 20:45; Admin Dose 100 MG; Start 11/21/18 at 21:00 Famotidine (Pepcid) 20 mg Q12 GTB Last administered on 12/01/18 10:13; Admin Dose 20 MG; Start 11/21/18 at 21:00 [facility] This patient garcia... PRN PRN XX WOUND CARE; Start 11/22/18 at 06:00 Cefepime HCl 50 ml @ 100 mls/hr Q12 IVPB Last administered on 12/01/18 10:14; Admin Dose 100 MLS/HR; Start 11/23/18 at 21:00 Ampicillin (Ampicillin) 500 mg Q8 PO Last administered on 12/01/18 13:34; Admin Dose 500 MG; Start 11/28/18 at 22:00 Terbinafine HCl (Lamisil) 250 mg DAILY GTB Last administered on 12/01/18 10:13; Admin Dose 250 MG; Start 11/29/18 at 09:00 Metoclopramide HCl (Reglan) 10 mg Q6 IV Last administered on 12/01/18 12:19; Admin Dose 10 MG; Start 11/29/18 at 18:00 ULDA COHEN MD Dec 01, 2018 17:29
--- NOTE | 2018-12-01 19:58 | CONS ---
Assessment/Plan Assessment/Plan Hospital Course (Demo Recall) 1230 No acute changes, looks comfortable, no fevers Microbiology: Blood culture grew staph 1 set, urine culture growing Proteus and Enterococcus, repeat blood cultures negative Indwelling: Trach PEG suprapubic catheter Antimicrobials: Ampicillin Cefepime Lamisil Diagnosis: Chest x-ray on admission revealed no evidence of acute cardiopulmonary process Urinalysis on admission was positive for nitrite leukocyte esterase and few bacteria Physical examination: Chronically ill-appearing vegetative middle-aged man who is in no distress. Head atraumatic neck is supple chest rise symmetrical breath sounds diminished bases. Heart: S1-S2. Abdomen soft bowel sounds present. Extremities contractured Assessment: 1. Sepsis, present on admission 2. Gram-positive cocci bacteremia cw contaminant 3. UTI ==> GNR 4. Occipital area skin lesion, status post biopsy 5. Vegetative state 6. Onychomycosis of toenails Plan: Stable, completed abx. Consultation Date/Type/Reason Admit Date/Time Nov 23, 2018 at 09:56 Initial Consult Date 11/22/18 Type of Consult id Requesting Provider: DB SUMMERS Date/Time of Note DATE: 12/01/18 TIME: 19:57 Exam/Review of Systems Exam Vitals Vital Signs Date Temp Pulse Resp B/P (MAP) Pulse Ox O2 O2 Flow FiO2 Time Delivery Rate 12/01/18 86 17 97 30 17:15 12/01/18 98.1 102/67 Trach 16:09 (79) Collar Intake and Output 11/30/18 11/30/18 12/01/18 1515:00 23:00 07:00 IntakeIntake Total 340 ml 730 ml OutputOutput Total 500 ml 600 ml BalanceBalance -160 ml 130 ml Results Result Diagram: 12/01/18 0604 12/01/18 0604 Results 24hrs Laboratory Tests Test 12/01/18 06:04 White Blood Count 11.0 H Red Blood Count 3.71 L Hemoglobin 10.4 L Hematocrit 32.6 L Mean Corpuscular Volume 87.9 Mean Corpuscular Hemoglobin 28.0 L Mean Corpuscular Hemoglobin Concent 31.9 L Red Cell Distribution Width 15.9 H Platelet Count 282 Mean Platelet Volume 10.7 H Immature Granulocytes % 0.400 Neutrophils % 70.3 Lymphocytes % 18.9 Monocytes % 7.3 Eosinophils % 2.6 Basophils % 0.5 Nucleated Red Blood Cells % 0.0 Immature Granulocytes # 0.040 H Neutrophils # 7.7 H Lymphocytes # 2.1 Monocytes # 0.8 Eosinophils # 0.3 Basophils # 0.1 Nucleated Red Blood Cells # 0.0 Sodium Level 143 Potassium Level 3.3 L Chloride Level 107 Carbon Dioxide Level 26 Anion Gap 10 Blood Urea Nitrogen 27 H Creatinine 0.47 L Est Glomerular Filtrat Rate mL/min > 60 Glucose Level 125 Calcium Level 9.1 Medications Medication Current Medications Ascorbic Acid (Vitamin C) 500 mg DAILY GTB Last administered on 12/01/18 10:1 3; Admin Dose 500 MG; Start 11/22/18 at 09:00 Aspirin (Halfprin) 81 mg DAILY PO Last administered on 12/01/18 10:13; Admin Dose 81 MG; Start 11/22/18 at 09:00 Chlorhexidine Gluconate (Peridex) 15 ml Q12H MM Last administered on 12/01/18 17:43; Admin Dose 15 ML; Start 11/21/18 at 16:30 Multivitamins/ Minerals (Theragran-M) 1 tab DAILY PO Last administered on 12/01/18 10:13; Admin Dose 1 TAB; Start 11/22/18 at 09:00 IV Flush (NS 3 ml) 3 ml PER PROTOCOL IV ; Start 11/21/18 at 16:30 Lorazepam (Ativan) 0.5 mg Q6H PRN IV .ANXIETY Last administered on 11/27/18 03:58; Admin Dose 0.5 MG; Start 11/21/18 at 16:30 Ondansetron HCl (Zofran Inj) 4 mg Q6H PRN IV NAUSEA/VOMITING; Start 11/21/18 at 16:30 Acetaminophen (Tylenol Tab) 650 mg Q6H PRN PO .PAIN 1-3 OR TEMP Last administered on 11/27/18 13:29; Admin Dose 650 MG; Start 11/21/18 at 16:30 Docusate Sodium (Colace) 100 mg Q12H PRN PO .CONSTIPATION; Start 11/21/18 at 16:30 Magnesium Hydroxide (Milk Of Mag) 30 ml DAILY PRN PO .CONSTIPATION Last adm inistered on 11/29/18 17:40; Admin Dose 30 ML; Start 11/21/18 at 16:30 Enoxaparin Sodium (Lovenox) 30 mg DAILY SC Last administered on 12/01/18 10:22; Admin Dose 30 MG; Start 11/22/18 at 09:00 Albuterol/ Ipratropium (Duoneb) 3 ml Q4H RESP THERAPY PRN HHN SHORTNESS OF BREATH; Start 11/21/18 at 16:30 Levetiracetam (Keppra Liquid) 1,000 mg Q8 GTB Last administered on 12/01/18 13:34; Admin Dose 1,000 MG; Start 11/21/18 at 20:52 Docusate Sodium (Colace Liquid Cup) 100 mg QHS GTB Last administered on 11/30/18 20:45; Admin Dose 100 MG; Start 11/21/18 at 21:00 Famotidine (Pepcid) 20 mg Q12 GTB Last administered on 12/01/18 10:13; Admin Dose 20 MG; Start 11/21/18 at 21:00 Miscellaneous Information (Pending [facility] Order For Wound Care) This patient garcia... PRN PRN XX WOUND CARE; Start 11/22/18 at 06:00 Cefepime HCl 50 ml @ 100 mls/hr Q12 IVPB Last administered on 12/01/18 10:14; Admin Dose 100 MLS/HR; Start 11/23/18 at 21:00 Ampicillin (Ampicillin) 500 mg Q8 PO Last administered on 12/01/18 13:34; Admin Dose 500 MG; Start 11/28/18 at 22:00 Terbinafine HCl (Lamisil) 250 mg DAILY GTB Last administered on 12/01/18 10:13; Admin Dose 250 MG; Start 11/29/18 at 09:00 Metoclopramide HCl (Reglan) 10 mg Q6 IV Last administered on 12/01/18 17:43; Admin Dose 10 MG; Start 11/29/18 at 18:00 Polyethylene Glycol (Miralax) 17 gm BID GTB ; Start 12/01/18 at 21:00 ERNESTO MCADAMS NP Dec 01, 2018 19:58
[2018-12-01] MEDS: POLYETHYLENE GLYCOL 17 GM PACKET GTB SCH (20:55)
[2018-12-01] MEDS: DOCUSATE SODIUM 10 MG/ML (10ML CUP) GTB SCH (20:55)
[2018-12-02] VITALS (24 sets, daily range): BP systolic 92–124; BP diastolic 61–82; PULSE 50–102; RESP 14–18
[2018-12-02] MEDS: CHLORHEXIDINE GLUCONATE 15 ML UD CUP MM SCH ×2 (05:29→17:06)
[2018-12-02] MEDS: LEVETIRACETAM (100 MG/ML) 5ML CUP GTB SCH ×3 (05:54→21:45)
[2018-12-02] MEDS: METOCLOPRAMIDE 10 MG INJ IV SCH ×3 (05:54→17:07)
[2018-12-02] MEDS: POLYETHYLENE GLYCOL 17 GM PACKET GTB SCH ×2 (09:33→21:46)
[2018-12-02] MEDS: MULTIVITAMINS/MINERALS TAB PO SCH (09:33)
[2018-12-02] MEDS: TERBINAFINE 250 MG TAB GTB SCH (09:33)
[2018-12-02] MEDS: ASPIRIN (EC) 81 MG TAB PO SCH (09:33)
[2018-12-02] MEDS: ASCORBIC ACID 500 MG TAB GTB SCH (09:33)
[2018-12-02] MEDS: FAMOTIDINE 20 MG TAB GTB SCH ×2 (09:33→21:45)
[2018-12-02] MEDS: ENOXAPARIN 30 MG/0.3 ML SYG SC SCH (09:49)
[2018-12-02] MEDS: BALSAM PERU/CASTOR OIL 60 GM TUBE TOP SCH (09:52)
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
[2018-12-02] MEDS ORDERED: POTASSIUM CHLORIDE (SR) 20 MEQ TAB PO STA (13:14)
--- NOTE | 2018-12-02 14:15 | CONS ---
Assessment/Plan Assessment/Plan Assessment/Plan (Daily) Assessment/Plan Assessment/Plan Assessment/Plan (Daily) Assessment/Plan Assessment/Plan (Daily) IMPRESSION: 1. Fecal impaction with gaseous distention of the colon. And responded very well to enema and magnesium citrate. His abdomen is totally benign 2. Status post PEG. 3. Quadriplegia. 4. Skin lesion, probably focal chronic folliculitis. 5. Quadriplegia. Plan Resume feeding through the G-tube and gradually increase it Stool softener on a regular basis MiraLAX 17 g twice daily Patient is tolerating feeding Consultation Date/Type/Reason Admit Date/Time Nov 23, 2018 at 09:56 Initial Consult Date 11/22/18 Requesting Provider: DB SUMMERS Date/Time of Note DATE: 12/02/18 TIME: 14:14 24 HR Interval Summary Subjective hx not possible: pt non-verbal Exam/Review of Systems Exam Vitals Vital Signs Date Temp Pulse Resp B/P (MAP) Pulse Ox O2 O2 Flow FiO2 Time Delivery Rate 12/02/18 89 14 100 30 13:14 12/02/18 97.6 92/61 (71) Trach 11:04 Collar Intake and Output 12/01/18 12/01/18 12/02/18 1515:00 23:00 07:00 IntakeIntake Total 720 ml 1220 ml OutputOutput Total 600 ml 400 ml BalanceBalance 120 ml 820 ml Neck: supple Respiratory: diminished breath sounds Neurological: unresponsive Results Result Diagram: 12/01/18 0604 12/01/18 0604 Medications Medication Current Medications Ascorbic Acid (Vitamin C) 500 mg DAILY GTB Last administered on 12/02/18at 09:33; Admin Dose 500 MG; Start 11/22/18 at 09:00 Aspirin (Halfprin) 81 mg DAILY PO Last administered on 12/02/18 09:33; Admin Dose 81 MG; Start 11/22/18 at 09:00 Chlorhexidine Gluconate (Peridex) 15 ml Q12H MM Last administered on 12/02/18at 05:29; Admin Dose 15 ML; Start 11/21/18 at 16:30 Multivitamins/ Minerals (Theragran-M) 1 tab DAILY PO Last administered on 12/02/18 09:33; Admin Dose 1 TAB; Start 11/22/18 at 09:00 IV Flush (NS 3 ml) 3 ml PER PROTOCOL IV ; Start 11/21/18 at 16:30 Lorazepam (Ativan) 0.5 mg Q6H PRN IV .ANXIETY Last administered on 11/27/18 03:58; Admin Dose 0.5 MG; Start 11/21/18 at 16:30 Ondansetron HCl (Zofran Inj) 4 mg Q6H PRN IV NAUSEA/VOMITING; Start 11/21/18 at 16:30 Acetaminophen (Tylenol Tab) 650 mg Q6H PRN PO .PAIN 1-3 OR TEMP Last administered on 11/27/18 13:29; Admin Dose 650 MG; Start 11/21/18 at 16:30 Docusate Sodium (Colace) 100 mg Q12H PRN PO .CONSTIPATION; Start 11/21/18 at 16:30 Magnesium Hydroxide (Milk Of Mag) 30 ml DAILY PRN PO .CONSTIPATION Last administered on 11/29/18 17:40; Admin Dose 30 ML; Start 11/21/18 at 16:30 Enoxaparin Sodium (Lovenox) 30 mg DAILY SC Last administered on 12/02/18 09:49; Admin Dose 30 MG; Start 11/22/18 at 09:00 Albuterol/ Ipratropium (Duoneb) 3 ml Q4H RESP THERAPY PRN HHN SHORTNESS OF BREATH; Start 11/21/18 at 16:30 Levetiracetam (Keppra Liquid) 1,000 mg Q8 GTB Last administered on 12/02/18 05:54; Admin Dose 1,000 MG; Start 11/21/18 at 20:52 Docusate Sodium (Colace Liquid Cup) 100 mg QHS GTB Last administered on 12/01/18 20:55; Admin Dose 100 MG; Start 11/21/18 at 21:00 Famotidine (Pepcid) 20 mg Q12 GTB Last administered on 12/02/18 09:33; Admin Dose 20 MG; Start 11/21/18 at 21:00 Miscellaneous Information (Pending [facility] Order For Wound Care) This patient garcia... PRN PRN XX WOUND CARE; Start 11/22/18 at 06:00 Terbinafine HCl (Lamisil) 250 mg DAILY GTB Last administered on 12/02/18 09:33; Admin Dose 250 MG; Start 11/29/18 at 09:00 Metoclopramide HCl (Reglan) 10 mg Q6 IV Last administered on 12/02/18 12:58; Admin Dose 10 MG; Start 11/29/18 at 18:00 Polyethylene Glycol (Miralax) 17 gm BID GTB Last administered on 12/02/18 09:33; Admin Dose 17 GM; Start 12/01/18 at 21:00 LUDA COHEN MD Dec 02, 2018 14:15
--- NOTE | 2018-12-02 15:54 | CONS ---
Consultation Date/Type/Reason Admit Date/Time Nov 23, 2018 at 09:56 Initial Consult Date SUBJECTIVE: Pt is in veg state. no fevers. No acute changes. VS: stable T: 97.7 LABS: Reviewed. Microbiology: Blood culture grew staph 1 set, urine culture growing Proteus and Enterococcus, repeat blood cultures negative Indwelling: Trach PEG suprapubic catheter Antimicrobials: Ampicillin Cefepime Lamisil Chest x-ray on admission revealed no evidence of acute cardiopulmonary process Urinalysis on admission was positive for nitrite leukocyte esterase and few bacteria Physical examination: GEN: Chronically ill-appearing vegetative, middle-aged man who is in no distress. HENT: Head atraumatic, neck is supple PULM: chest rise symmetrical, breath sounds diminished bases. Heart: S1-S2. Abdomen: soft bowel sounds present. Extremities: contractured Assessment: 1. Sepsis, present on admission 2. Gram-positive cocci bacteremia cw contaminant 3. UTI ==> GNR 4. Occipital area skin lesion, status post biopsy 5. Vegetative state 6. Onychomycosis of toenails Plan:Pt is stable. He had completed abx. will continue to monitor. Requesting Provider: DB SUMMERS Date/Time of Note DATE: 12/02/18 TIME: 15:51 Exam/Review of Systems Exam Vitals Vital Signs Date Temp Pulse Resp B/P (MAP) Pulse Ox O2 O2 Flow FiO2 Time Delivery Rate 12/02/18 97.7 50 14 100/61 99 Trach 15:13 (74) Collar 12/02/18 30 13:14 Intake and Output 12/01/18 12/01/18 12/02/18 1515:00 23:00 07:00 IntakeIntake Total 50 ml 720 ml 1220 ml OutputOutput Total 600 ml 400 ml BalanceBalance 50 ml 120 ml 820 ml Results Result Diagram: 12/01/18 0604 12/01/18 0604 Medications Medication Current Medications Ascorbic Acid (Vitamin C) 500 mg DAILY GTB Last administered on 12/02/18at 09:33; Admin Dose 500 MG; Start 11/22/18 at 09:00 Aspirin (Halfprin) 81 mg DAILY PO Last administered on 12/02/18at 09:33; Admin Dose 81 MG; Start 11/22/18 at 09:00 Chlorhexidine Gluconate (Peridex) 15 ml Q12H MM Last administered on 12/02/18 05:29; Admin Dose 15 ML; Start 11/21/18 at 16:30 Multivitamins/ Minerals (Theragran-M) 1 tab DAILY PO Last administered on 12/02/18 09:33; Admin Dose 1 TAB; Start 11/22/18 at 09:00 IV Flush (NS 3 ml) 3 ml PER PROTOCOL IV ; Start 11/21/18 at 16:30 Lorazepam (Ativan) 0.5 mg Q6H PRN IV .ANXIETY Last administered on 11/27/18 03:58; Admin Dose 0.5 MG; Start 11/21/18 at 16:30 Ondansetron HCl (Zofran Inj) 4 mg Q6H PRN IV NAUSEA/VOMITING; Start 11/21/18 at 16:30 Acetaminophen (Tylenol Tab) 650 mg Q6H PRN PO .PAIN 1-3 OR TEMP Last administered on 11/27/18 13:29; Admin Dose 650 MG; Start 11/21/18 at 16:30 Docusate Sodium (Colace) 100 mg Q12H PRN PO .CONSTIPATION; Start 11/21/18 at 16:30 Magnesium Hydroxide (Milk Of Mag) 30 ml DAILY PRN PO .CONSTIPATION Last administered on 11/29/18 17:40; Admin Dose 30 ML; Start 11/21/18 at 16:30 Enoxaparin Sodium (Lovenox) 30 mg DAILY SC Last administered on 12/02/18 09:49; Admin Dose 30 MG; Start 11/22/18 at 09:00 Albuterol/ Ipratropium (Duoneb) 3 ml Q4H RESP THERAPY PRN HHN SHORTNESS OF BREATH; Start 11/21/18 at 16:30 Levetiracetam (Keppra Liquid) 1,000 mg Q8 GTB Last administered on 12/02/18 14:27; Admin Dose 1,000 MG; Start 11/21/18 at 20:52 Docusate Sodium (Colace Liquid Cup) 100 mg QHS GTB Last administered on 12/01/18 20:55; Admin Dose 100 MG; Start 11/21/18 at 21:00 Famotidine (Pepcid) 20 mg Q12 GTB Last administered on 12/02/18 09:33; Admin Dose 20 MG; Start 11/21/18 at 21:00 [facility] This patient garcia. .. PRN PRN XX WOUND CARE; Start 11/22/18 at 06:00 Terbinafine HCl (Lamisil) 250 mg DAILY GTB Last administered on 12/02/18 09:33; Admin Dose 250 MG; Start 11/29/18 at 09:00 Metoclopramide HCl (Reglan) 10 mg Q6 IV Last administered on 12/02/18 12:58; Admin Dose 10 MG; Start 11/29/18 at 18:00 Polyethylene Glycol (Miralax) 17 gm BID GTB Last administered on 12/02/18 09:33; Admin Dose 17 GM; Start 12/01/18 at 21:00 AC MANZO Dec 02, 2018 15:54
--- NOTE | 2018-12-02 20:22 | PN ---
DATE: 12/02/2018 SUBJECTIVE: The patient is breathing comfortably on vent. He remains awake and responsive. The pat ient has dense quadriplegia. He did not have any fever or chills. No bleeding from any site. No re ported wheezing. Patient remains vent dependent. PHYSICAL EXAMINATION: GENERAL: Revealed the patient to be awake, alert. VITAL SIGNS: Temperature 97.7, pulse 91, respirations 15, blood pressure 100/61, O2 saturation 99% o n FIO2 30%. HEENT: No eye discharge or redness. Nose and ears normal. The patient's scalp has multiple soft ti ssue swelling. NECK: Tracheostomy in place, mild secretion. No mass. CHEST: Diminished air entry at bases. No use of accessory muscles. CARDIOVASCULAR: Irregular rhythm. S1, S2 normal. No murmur. ABDOMEN: Soft, nondistended, nontender. G-tube in place. EXTREMITIES: Contracted and atrophic. IMPRESSION: 1. Posterior scalp and neck region soft tissue growth, biopsy revealed chronic folliculitis and fibr osis. No evidence of malignancy. Continue to monitor. 2. Urinary tract infection. The patient has completed antibiotic. Will monitor off antibiotic. 3. Respiratory failure. Continue vent support. 4. Recent fecal impaction and gaseous distention. Responded well to an enema. Abdomen is now soft. The patient is tolerating G-tube feeding. DISPOSITION: Will initiate discharge planning to SNF. Dictated By: KO CEJA/ZACKARY Conf#: [id number] DID#: [id number]
[2018-12-02] MEDS: DOCUSATE SODIUM 10 MG/ML (10ML CUP) GTB SCH (21:45)
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
[2018-12-03] VITALS (23 sets, daily range): BP systolic 82–130; BP diastolic 53–86; PULSE 53–121; RESP 14–18
[2018-12-03] MEDS: METOCLOPRAMIDE 10 MG INJ IV SCH ×4 (00:46→17:29)
[2018-12-03] MEDS: LEVETIRACETAM (100 MG/ML) 5ML CUP GTB SCH ×3 (05:32→21:28)
[2018-12-03] MEDS: CHLORHEXIDINE GLUCONATE 15 ML UD CUP MM SCH ×2 (05:32→17:29)
[2018-12-03] MEDS: ASPIRIN (EC) 81 MG TAB PO SCH (09:14)
[2018-12-03] MEDS: POLYETHYLENE GLYCOL 17 GM PACKET GTB SCH ×2 (09:14→21:27)
[2018-12-03] MEDS: TERBINAFINE 250 MG TAB GTB SCH (09:14)
[2018-12-03] MEDS: FAMOTIDINE 20 MG TAB GTB SCH ×2 (09:14→21:27)
[2018-12-03] MEDS: ASCORBIC ACID 500 MG TAB GTB SCH (09:14)
[2018-12-03] MEDS: MULTIVITAMINS/MINERALS TAB PO SCH (09:14)
[2018-12-03] MEDS: BALSAM PERU/CASTOR OIL 60 GM TUBE TOP SCH (09:15)
[2018-12-03] MEDS: ENOXAPARIN 30 MG/0.3 ML SYG SC SCH (09:23)
--- NOTE | 2018-12-03 12:54 | CONS ---
Consultation Date/Type/Reason Admit Date/Time Nov 23, 2018 at 09:56 Initial Consult Date SUBJECTIVE: Pt is in veg state. No acute changes. Scalp Bx was negative for malignancy. VS: stable T: 99.1 LABS: Reviewed. WBC-12.4 Microbiology: Blood culture grew staph 1 set, urine culture growing Proteus and Enterococcus, repeat blood cultures negative Indwelling: Trach PEG suprapubic catheter Antimicrobials: Ampicillin Cefepime Lamisil Chest x-ray on admission revealed no evidence of acute cardiopulmonary process Urinalysis on admission was positive for nitrite leukocyte esterase and few bacteria Physical examination: GEN: Chronically ill-appearing vegetative, middle-aged man who is in no distress. HENT: Head atraumatic, neck is supple PULM: chest rise symmetrical, breath sounds diminished bases. Heart: S1-S2. Abdomen: soft bowel sounds present. Extremities: contractured Assessment: 1. Sepsis, present on admission 2. Gram-positive cocci bacteremia cw contaminant 3. UTI ==> GNR 4. Occipital area skin lesion, status post biopsy -neg. for malignancy 5. Vegetative state 6. Onychomycosis of toenails Plan:Pt is stable. He had completed abx. Will continue to monitor. Requesting Provider: DB SUMMERS Date/Time of Note DATE: 12/03/18 TIME: 12:52 Exam/Review of Systems Exam Vitals Vital Signs Date Temp Pulse Resp B/P (MAP) Pulse Ox O2 O2 Flow FiO2 Time Delivery Rate 12/03/18 99.1 85 16 114/70 93 11:33 (85) 12/03/18 30 11:23 12/02/18 Trach 15:13 Collar Intake and Output 12/02/18 12/02/18 12/03/18 1515:00 23:00 07:00 IntakeIntake Total 1020 ml 1170 ml OutputOutput Total 600 ml 920 ml BalanceBalance 420 ml 250 ml Results Result Diagram: 12/03/18 0501 12/03/18 0501 Results 24hrs Laboratory Tests Test 12/03/18 05:01 White Blood Count 12.4 H Red Blood Count 3.78 L Hemoglobin 10.5 L Hematocrit 33.9 L Mean Corpuscular Volume 89.7 Mean Corpuscular Hemoglobin 27.8 L Mean Corpuscular Hemoglobin Concent 31.0 L Red Cell Distribution Width 15.6 H Platelet Count 231 Mean Platelet Volume 12.0 H Immature Granulocytes % 0.200 Neutrophils % 76.5 Lymphocytes % 15.8 Monocytes % 4.8 Eosinophils % 2.3 Basophils % 0.4 Nucleated Red Blood Cells % 0.0 Immature Granulocytes # 0.030 Neutrophils # 9.5 H Lymphocytes # 2.0 Monocytes # 0.6 Eosinophils # 0.3 Basophils # 0.1 Nucleated Red Blood Cells # 0.0 Sodium Level 141 Potassium Level 4.2 Chloride Level 107 Carbon Dioxide Level 24 Anion Gap 10 Blood Urea Nitrogen 19 Creatinine 0.45 L Est Glomerular Filtrat Rate mL/min > 60 Glucose Level 118 Calcium Level 9.2 Medications Medication Current Medications Ascorbic Acid (Vitamin C) 500 mg DAILY GTB Last administered on 12/03/18 09:14; Admin Dose 500 MG; Start 11/22/18 at 09:00 Aspirin (Halfprin) 81 mg DAILY PO Last administered on 12/03/18 09:14; Admin Dose 81 MG; Start 11/22/18 at 09:00 Chlorhexidine Gluconate (Peridex) 15 ml Q12H MM Last administered on 12/03/18 05:32; Admin Dose 15 ML; Start 11/21/18 at 16:30 Multivitamins/ Minerals (Theragran-M) 1 tab DAILY PO Last administered on 12/03/18 09:14; Admin Dose 1 TAB; Start 11/22/18 at 09:00 IV Flush (NS 3 ml) 3 ml PER PROTOCOL IV ; Start 11/21/18 at 16:30 Lorazepam (Ativan) 0.5 mg Q6H PRN IV .ANXIETY Last administered on 11/27/18 03:58; Admin Dose 0.5 MG; Start 11/21/18 at 16:30 Ondansetron HCl (Zofran Inj) 4 mg Q6H PRN IV NAUSEA/VOMITING; Start 11/21/18 at 16:30 Acetaminophen (Tylenol Tab) 650 mg Q6H PRN PO .PAIN 1-3 OR TEMP Last administe red on 11/27/18 13:29; Admin Dose 650 MG; Start 11/21/18 at 16:30 Docusate Sodium (Colace) 100 mg Q12H PRN PO .CONSTIPATION; Start 11/21/18 at 16:30 Magnesium Hydroxide (Milk Of Mag) 30 ml DAILY PRN PO .CONSTIPATION Last administered on 11/29/18 17:40; Admin Dose 30 ML; Start 11/21/18 at 16:30 Enoxaparin Sodium (Lovenox) 30 mg DAILY SC Last administered on 12/03/18 09:23; Admin Dose 30 MG; Start 11/22/18 at 09:00 Albuterol/ Ipratropium (Duoneb) 3 ml Q4H RESP THERAPY PRN HHN SHORTNESS OF BREATH; Start 11/21/18 at 16:30 Levetiracetam (Keppra Liquid) 1,000 mg Q8 GTB Last administered on 12/03/18 05:32; Admin Dose 1,000 MG; Start 11/21/18 at 20:52 Docusate Sodium (Colace Liquid Cup) 100 mg QHS GTB Last administered on 12/02/18 21:45; Admin Dose 100 MG; Start 11/21/18 at 21:00 Famotidine (Pepcid) 20 mg Q12 GTB Last administered on 12/03/18 09:14; Admin Dose 20 MG; Start 11/21/18 at 21:00 Miscellaneous Information (Pending [facility] Order For Wound Care) This patient garcia... PRN PRN XX WOUND CARE; Start 11/22/18 at 06:00 Terbinafine HCl (Lamisil) 250 mg DAILY GTB Last administered on 12/03/18 09:14; Admin Dose 250 MG; Start 11/29/18 at 09:00 Metoclopramide HCl (Reglan) 10 mg Q6 IV Last administered on 12/03/18 12:16; Admin Dose 10 MG; Start 11/29/18 at 18:00 Polyethylene Glycol (Miralax) 17 gm BID GTB Last administered on 12/03/18 09:14; Admin Dose 17 GM; Start 12/01/18 at 21:00 AC MANZO Dec 03, 2018 12:54
--- NOTE | 2018-12-03 14:52 | CONS ---
Assessment/Plan Assessment/Plan Assessment/Plan (Daily) Assessment/Plan Assessment/Plan (Daily) IMPRESSION: 1. Fecal impaction with gaseous distention of the colon. And responded very well to enema and magnesium citrate. His abdomen is totally benign 2. Status post PEG. 3. Quadriplegia. 4. Skin lesion, probably focal chronic folliculitis. 5. Status post trach Plan Resume feeding through the G-tube and gradually increase it Stool softener on a regular basis MiraLAX 17 g twice daily Patient is tolerating feeding Consultation Date/Type/Reason Admit Date/Time Nov 23, 2018 at 09:56 Initial Consult Date 11/22/18 Requesting Provider: DB SUMMERS Date/Time of Note DATE: 12/03/18 TIME: 14:50 24 HR Interval Summary Subjective hx not possible: pt non-verbal Exam/Review of Systems Exam Vitals Vital Signs Date Temp Pulse Resp B/P (MAP) Pulse Ox O2 O2 Flow FiO2 Time Delivery Rate 12/03/18 88 14 97 30 13:31 12/03/18 99.1 114/70 11:33 (85) 12/02/18 Trach 15:13 Collar Intake and Output 12/02/18 12/02/18 12/03/18 1515:00 23:00 07:00 IntakeIntake Total 1020 ml 1170 ml OutputOutput Total 600 ml 920 ml BalanceBalance 420 ml 250 ml ENMT: intubated Cardiovascular: regular rate and rhythm, nl pulses Gastrointestinal: soft, nl liver, spleen, non-tender Musculoskeletal: muscle weakness Neurological: confused Results Result Diagram: 12/03/18 0501 12/03/18 0501 Results 24hrs Laboratory Tests Test 12/03/18 05:01 White Blood Count 12.4 H Red Blood Count 3.78 L Hemoglobin 10.5 L Hematocrit 33.9 L Mean Corpuscular Volume 89.7 Mean Corpuscular Hemoglobin 27.8 L Mean Corpuscular Hemoglobin Concent 31.0 L Red Cell Distribution Width 15.6 H Platelet Count 231 Mean Platelet Volume 12.0 H Immature Granulocytes % 0.200 Neutrophils % 76.5 Lymphocytes % 15.8 Monocytes % 4.8 Eosinophils % 2.3 Basophils % 0.4 Nucleated Red Blood Cells % 0.0 Immature Granulocytes # 0.030 Neutrophils # 9.5 H Lymphocytes # 2.0 Monocytes # 0.6 Eosinophils # 0.3 Basophils # 0.1 Nucleated Red Blood Cells # 0.0 Sodium Level 141 Potassium Level 4.2 Chloride Level 107 Carbon Dioxide Level 24 Anion Gap 10 Blood Urea Nitrogen 19 Creatinine 0.45 L Est Glomerular Filtrat Rate mL/min > 60 Glucose Level 118 Calcium Level 9.2 Medications Medication Current Medications Ascorbic Acid (Vitamin C) 500 mg DAILY GTB Last administered on 12/03/18 09:14; Admin Dose 500 MG; Start 11/22/18 at 09:00 Aspirin (Halfprin) 81 mg DAILY PO Last administered on 12/03/18 09:14; Admin Dose 81 MG; Start 11/22/18 at 09:00 Chlorhexidine Gluconate (Peridex) 15 ml Q12H MM Last administered on 12/03/18 05:32; Admin Dose 15 ML; Start 11/21/18 at 16:30 Multivitamins/ Minerals (Theragran-M) 1 tab DAILY PO Last administered on 12/03/18 09:14; Admin Dose 1 TAB; Start 11/22/18 at 09:00 IV Flush (NS 3 ml) 3 ml PER PROTOCOL IV ; Start 11/21/18 at 16:30 Lorazepam (Ativan) 0.5 mg Q6H PRN IV .ANXIETY Last administered on 11/27/18 03:58; Admin Dose 0.5 MG; Start 11/21/18 at 16:30 Ondansetron HCl (Zofran Inj) 4 mg Q6H PRN IV NAUSEA/VOMITING; Start 11/21/18 at 16:30 Acetaminophen (Tylenol Tab) 650 mg Q6H PRN PO .PAIN 1-3 OR TEMP Last administered on 11/27/18 13:29; Admin Dose 650 MG; Start 11/21/18 at 16:30 Docusate Sodium (Colace) 100 mg Q12H PRN PO .CONSTIPATION; Start 11/21/18 at 16:30 Magnesium Hydroxide (Milk Of Mag) 30 ml DAILY PRN PO .CONSTIPATION Last adminis tered on 11/29/18 17:40; Admin Dose 30 ML; Start 11/21/18 at 16:30 Enoxaparin Sodium (Lovenox) 30 mg DAILY SC Last administered on 12/03/18 09:23; Admin Dose 30 MG; Start 11/22/18 at 09:00 Albuterol/ Ipratropium (Duoneb) 3 ml Q4H RESP THERAPY PRN HHN SHORTNESS OF BREATH; Start 11/21/18 at 16:30 Levetiracetam (Keppra Liquid) 1,000 mg Q8 GTB Last administered on 12/03/18 13:41; Admin Dose 1,000 MG; Start 11/21/18 at 20:52 Docusate Sodium (Colace Liquid Cup) 100 mg QHS GTB Last administered on 21:45; Admin Dose 100 MG; Start 11/21/18 at 21:00 Famotidine (Pepcid) 20 mg Q12 GTB Last administered on 12/03/18 09:14; Admin Dose 20 MG; Start 11/21/18 at 21:00 Miscellaneous Information (Pending [facility] Order For Wound Care) This patient garcia... PRN PRN XX WOUND CARE; Start 11/22/18 at 06:00 Terbinafine HCl (Lamisil) 250 mg DAILY GTB Last administered on 12/03/18 09:14; Admin Dose 250 MG; Start 11/29/18 at 09:00 Metoclopramide HCl (Reglan) 10 mg Q6 IV Last administered on 12/03/18 12:16; Admin Dose 10 MG; Start 11/29/18 at 18:00 Polyethylene Glycol (Miralax) 17 gm BID GTB Last administered on 12/03/18 09:14; Admin Dose 17 GM; Start 12/01/18 at 21:00 LUDA COHEN MD Dec 03, 2018 14:52
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
[2018-12-03] MEDS: DOCUSATE SODIUM 10 MG/ML (10ML CUP) GTB SCH (21:27)
[2018-12-04] VITALS (23 sets, daily range): BP systolic 106–167; BP diastolic 63–106; PULSE 57–114; RESP 14–22
[2018-12-04] MEDS: METOCLOPRAMIDE 10 MG INJ IV SCH ×4 (01:15→17:12)
[2018-12-04] MEDS: CHLORHEXIDINE GLUCONATE 15 ML UD CUP MM SCH ×2 (05:51→17:12)
[2018-12-04] MEDS: LEVETIRACETAM (100 MG/ML) 5ML CUP GTB SCH ×3 (05:52→21:30)
--- NOTE | 2018-12-04 08:09 | CONS ---
Assessment/Plan Assessment/Plan Hospital Course (Demo Recall) 43 yo male Interval hx: Pt has a rectal tube with soft brown stool. Abd is soft. Tolerating tube feeds at 60cc/hr. Tolerating tube feeds at 60cc/hr 1. Fecal impaction with gaseous distention of the colon -resolved 2. Status post PEG. 3. 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 Skin lesion, probably focal chronic folliculitis. 5. Status post trach Plan Continue with reglan Continue with tube feeds, monitor residuals Continue with regular bowel regimen (miralax and docusate with prn mag citrate) Pt examined and plan of care discussed with Dr. Smith Consultation Date/Type/Reason Admit Date/Time Nov 23, 2018 at 09:56 Initial Consult Date 11/22/18 Requesting Provider: DB SUMMERS Date/Time of Note DATE: 12/04/18 TIME: 07:59 Exam/Review of Systems Exam Vitals Vital Signs Date Temp Pulse Resp B/P (MAP) Pulse Ox O2 O2 Flow FiO2 Time Delivery Rate 12/04/18 30 07:44 12/04/18 103 16 100 05:11 12/04/18 98.9 106/63 04:00 (77) 12/02/18 Trach 15:13 Collar Intake and Output 12/03/18 12/03/18 12/04/18 1515:00 23:00 07:00 IntakeIntake Total 1020 ml OutputOutput Total 1100 ml BalanceBalance -80 ml Head: normocephalic Eyes: nl sclera, PERRL Respiratory: clear to auscultation Cardiovascular: regular rate and rhythm Gastrointestinal: soft, non-tender Musculoskeletal: other (quadriplegia) Results Result Diagram: 12/04/1851812/04/18518 Results 24hrs Laboratory Tests Test 12/04/18 05:19 White Blood Count 10.4 Red Blood Count 3.74 L Hemoglobin 10.4 L Hematocrit 33.8 L Mean Corpuscular Volume 90.4 Mean Corpuscular Hemoglobin 27.8 L Mean Corpuscular Hemoglobin Concent 30.8 L Red Cell Distribution Width 15.7 H Platelet Count 278 # Mean Platelet Volume 11.3 H Immature Granulocytes % 0.700 H Neutrophils % 72.1 Lymphocytes % 16.5 Monocytes % 6.3 Eosinophils % 3.8 Basophils % 0.6 Nucleated Red Blood Cells % 0.0 Immature Granulocytes # 0.070 H Neutrophils # 7.5 Lymphocytes # 1.7 Monocytes # 0.7 Eosinophils # 0.4 Basophils # 0.1 Nucleated Red Blood Cells # 0.0 Sodium Level 142 Potassium Level 4.1 Chloride Level 105 Carbon Dioxide Level 26 Anion Gap 11 Blood Urea Nitrogen 18 Creatinine 0.46 L Est Glomerular Filtrat Rate mL/min > 60 Glucose Level 115 Calcium Level 9.3 Medications Medication Current Medications Ascorbic Acid (Vitamin C) 500 mg DAILY GTB Last administered on 12/03/18 09:14; Admin Dose 500 MG; Start 11/22/18 at 09:00 Aspirin (Halfprin) 81 mg DAILY PO Last administered on 12/03/18 09:14; Admin Dose 81 MG; Start 11/22/18 at 09:00 Chlorhexidine Gluconate (Peridex) 15 ml Q12H MM Last administered on 12/04/18 05:51; Admin Dose 15 ML; Start 11/21/18 at 16:30 Multivitamins/ Minerals (Theragran-M) 1 tab DAILY PO Last administered on 09:14; Admin Dose 1 TAB; Start 11/22/18 at 09:00 IV Flush (NS 3 ml) 3 ml PER PROTOCOL IV ; Start 11/21/18 at 16:30 Lorazepam (Ativan) 0.5 mg Q6H PRN IV .ANXIETY Last administered on 11/27/18 03:58; Admin Dose 0.5 MG; Start 11/21/18 at 16:30 Ondansetron HCl (Zofran Inj) 4 mg Q6H PRN IV NAUSEA/VOMITING; Start 11/21/18 at 16:30 Acetaminophen (Tylenol Tab) 650 mg Q6H PRN PO .PAIN 1-3 OR TEMP Last administered on 11/27/18 13:29; Admin Dose 650 MG; Start 11/21/18 at 16:30 Docusate Sodium (Colace) 100 mg Q12H PRN PO .CONSTIPATION; Start 11/21/18 at 16:30 Magnesium Hydroxide (Milk Of Mag) 30 ml DAILY PRN PO .CONSTIPATION Last administered on 11/29/18 17:40; Admin Dose 30 ML; Start 11/21/18 at 16:30 Enoxaparin Sodium (Lovenox) 30 mg DAILY SC Last administered on 12/03/18 09:23; Admin Dose 30 MG; Start 11/22/18 at 09:00 Albuterol/ Ipratropium (Duoneb) 3 ml Q4H RESP THERAPY PRN HHN SHORTNESS OF BREATH; Start 11/21/18 at 16:30 Levetiracetam (Keppra Liquid) 1,000 mg Q8 GTB Last administered on 12/04/18 05:52; Admin Dose 1,000 MG; Start 11/21/18 at 20:52 Docusate Sodium (Colace Liquid Cup) 100 mg QHS GTB Last administered on 12/03/18 21:27; Admin Dose 100 MG; Start 11/21/18 at 21:00 Famotidine (Pepcid) 20 mg Q12 GTB Last administered on 12/03/18 21:27; Admin Dose 20 MG; Start 11/21/18 at 21:00 Miscellaneous Information (Pending [facility] Order For Wound Care) This patient garcia... PRN PRN XX WOUND CARE; Start 11/22/18 at 06:00 Terbinafine HCl (Lamisil) 250 mg DAILY GTB Last administered on 12/03/18 09:14; Admin Dose 250 MG; Start 11/29/18 at 09:00 Metoclopramide HCl (Reglan) 10 mg Q6 IV Last administered on 12/04/18 05:52; Admin Dose 10 MG; Start 11/29/18 at 18:00 Polyethylene Glycol (Miralax) 17 gm BID GTB Last administered on 12/03/18 21:27; Admin Dose 17 GM; Start 12/01/18 at 21:00 JUDITH YAO Dec 04, 2018 08:09
[2018-12-04] MEDS: MULTIVITAMINS/MINERALS TAB PO SCH (08:25)
[2018-12-04] MEDS: FAMOTIDINE 20 MG TAB GTB SCH ×2 (08:25→21:29)
[2018-12-04] MEDS: TERBINAFINE 250 MG TAB GTB SCH (08:25)
[2018-12-04] MEDS: ASCORBIC ACID 500 MG TAB GTB SCH (08:26)
[2018-12-04] MEDS: ASPIRIN (EC) 81 MG TAB PO SCH (08:26)
[2018-12-04] MEDS: POLYETHYLENE GLYCOL 17 GM PACKET GTB SCH ×2 (08:26→21:00)
[2018-12-04] MEDS: BALSAM PERU/CASTOR OIL 60 GM TUBE TOP SCH (08:31)
[2018-12-04] MEDS: ENOXAPARIN 30 MG/0.3 ML SYG SC SCH (08:31)
--- NOTE | 2018-12-04 09:41 | PN ---
DATE: 12/03/2018 SUBJECTIVE: The patient remains vent dependent. Remains awake, alert, no reported fever or chills. No reported bleeding from any site. The patient is tolerating G-tube feeding well. PHYSICAL EXAMINATION: NEUROLOGIC: The patient is awake, alert, follows simple commands. VITAL SIGNS: Temperature 98.1, pulse 85, respirations 16, blood pressure 114/70, O2 saturation 96% o n FIO2 of 30%. HEENT: No eye discharge or redness. Conjunctivae and lids are normal. Oropharynx is grossly negati ve. NECK: Tracheostomy in place, mild secretion. ABDOMEN: Soft. EXTREMITIES: Contracted with no edema. NEURO: The patient is awake, follows simple commands. LABORATORY DATA: Done on 12/03/2018. WBC 12.4, hemoglobin 10.5, platelet 231. Sodium 141, potassiu m 4.2, BUN 19, creatinine 0.4. IMPRESSION: 1. Mild leukocytosis. The patient is being followed by Dr. Jacobs and recently completed antibiotic . We will continue to follow. If patient remains stable, and leukocytosis resolves the patient coul d be discharged back to subacute unit. 2. C-spine cardioplegia. Continue vent support. 3. History of anoxic encephalopathy. No acute issue. 4. Soft tissue lesion on the scalp status post biopsy. A second opinion pending. 5. Seizure disorder. Stable on Keppra. DISPOSITION: The patient will be discharged to subacute unit if the patient remains stable. Dictated By: KO CEJA/ZACKARY Conf#: [id number] DID#: [id number] CC: UMAIR SANTOS MD;*EndCC*
[2018-12-04] MEDS ORDERED: SOD CHLORIDE 0.9% 250 ML IV ONE (12:30)
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
--- NOTE | 2018-12-04 15:23 | CONS ---
Assessment/Plan Assessment/Plan Hospital Course (Demo Recall) 1230 Awake, looks comfortable, no fevers Microbiology: Blood culture grew staph 1 set, urine culture growing Proteus and Enterococcus, repeat blood cultures negative Indwelling: Trach PEG suprapubic catheter Antimicrobials: Lamisil Diagnosis: Chest x-ray on admission revealed no evidence of acute cardiopulmonary process Urinalysis on admission was positive for nitrite leukocyte esterase and few bacteria Physical examination: Chronically ill-appearing vegetative middle-aged man who is in no distress. Head atraumatic neck is supple chest rise symmetrical breath sounds diminished bases. Heart: S1-S2. Abdomen soft bowel sounds present. Extremities contractured Assessment: 1. S/p sepsis, present on admission 2. Gram-positive cocci bacteremia cw contaminant 3. S/p UTI 4. Occipital area skin lesion, status post biopsy 5. Chronic encephalopathy 6. Onychomycosis of toenails Plan: Remains stable, off abx. Consultation Date/Type/Reason Admit Date/Time Nov 23, 2018 at 09:56 Initial Consult Date 11/22/18 Type of Consult id Requesting Provider: DB SUMMERS Date/Time of Note DATE: 12/04/18 TIME: 15:22 Exam/Review of Systems Exam Vitals Vital Signs Date Temp Pulse Resp B/P (MAP) Pulse Ox O2 O2 Flow FiO2 Time Delivery Rate 12/04/18 98.5 108 22 167/106 96 Mechanical 11:14 (126) Ventilator 12/04/18 30 07:44 Intake and Output 12/03/18 12/03/18 12/04/18 1515:00 23:00 07:00 IntakeIntake Total 1020 ml OutputOutput Total 1100 ml BalanceBalance -80 ml Results Result Diagram: 12/04/1851812/04/18518 Results 24hrs Laboratory Tests Test 12/04/18 05:19 White Blood Count 10.4 Red Blood Count 3.74 L Hemoglobin 10.4 L Hematocrit 33.8 L Mean Corpuscular Volume 90.4 Mean Corpuscular Hemoglobin 27.8 L Mean Corpuscular Hemoglobin Concent 30.8 L Red Cell Distribution Width 15.7 H Platelet Count 278 # Mean Platelet Volume 11.3 H Immature Granulocytes % 0.700 H Neutrophils % 72.1 Lymphocytes % 16.5 Monocytes % 6.3 Eosinophils % 3.8 Basophils % 0.6 Nucleated Red Blood Cells % 0.0 Immature Granulocytes # 0.070 H Neutrophils # 7.5 Lymphocytes # 1.7 Monocytes # 0.7 Eosinophils # 0.4 Basophils # 0.1 Nucleated Red Blood Cells # 0.0 Sodium Level 142 Potassium Level 4.1 Chloride Level 105 Carbon Dioxide Level 26 Anion Gap 11 Blood Urea Nitrogen 18 Creatinine 0.46 L Est Glomerular Filtrat Rate mL/min > 60 Glucose Level 115 Calcium Level 9.3 Medications Medication Current Medications Ascorbic Acid (Vitamin C) 500 mg DAILY GTB Last administered on 12/04/18 08:26; Admin Dose 500 MG; Start 11/22/18 at 09:00 Aspirin (Halfprin) 81 mg DAILY PO Last administered on 12/04/18 08:26; Admin Dose 81 MG; Start 11/22/18 at 09:00 Chlorhexidine Gluconate (Peridex) 15 ml Q12H MM Last administered on 12/04/18 05:51; Admin Dose 15 ML; Start 11/21/18 at 16:30 Multivitamins/ Minerals (Theragran-M) 1 tab DAILY PO Last administered on 12/04/18 08:25; Admin Dose 1 TAB; Start 11/22/18 at 09:00 IV Flush (NS 3 ml) 3 ml PER PROTOCOL IV ; Start 11/21/18 at 16:30 Lorazepam (Ativan) 0.5 mg Q6H PRN IV .ANXIETY Last administered on 11/27/18 03:58; Admin Dose 0.5 MG; Start 11/21/18 at 16:30 Ondansetron HCl (Zofran Inj) 4 mg Q6H PRN IV NAUSEA/VOMITING; Start 11/21/18 at 16:30 Acetaminophen (Tylenol Tab) 650 mg Q6H PRN PO .PAIN 1-3 OR TEMP Last administered on 11/27/18 13:29; Admin Dose 650 MG; Start 11/21/18 at 16:30 Docusate Sodium (Colace) 100 mg Q12H PRN PO .CONSTIPATION; Start 11/21/18 at 16:30 Magnesium Hydroxide (Milk Of Mag) 30 ml DAILY PRN PO .CONSTIPATION Last administered on 11/29/18 17:40; Admin Dose 30 ML; Start 11/21/18 at 16:30 Enoxaparin Sodium (Lovenox) 30 mg DAILY SC Last administered on 12/04/18 08:31; Admin Dose 30 MG; Start 11/22/18 at 09:00 Albuterol/ Ipratropium (Duoneb) 3 ml Q4H RESP THERAPY PRN HHN SHORTNESS OF BREATH; Start 11/21/18 at 16:30 Levetiracetam (Keppra Liquid) 1,000 mg Q8 GTB Last administered on 12/04/18 12:51; Admin Dose 1,000 MG; Start 11/21/18 at 20:52 Docusate Sodium (Colace Liquid Cup) 100 mg QHS GTB Last administered on 12/03/18 21:27; Admin Dose 100 MG; Start 11/21/18 at 21:00 Famotidine (Pepcid) 20 mg Q12 GTB Last administered on 12/04/18 08:25; Admin Dose 20 MG; Start 11/21/18 at 21:00 Miscellaneous Information (Pending [facility] Order For Wound Care) This patient garcia... PRN PRN XX WOUND CARE; Start 11/22/18 at 06:00 Terbinafine HCl (Lamisil) 250 mg DAILY GTB Last administered on 12/04/18 08:25; Admin Dose 250 MG; Start 11/29/18 at 09:00 Metoclopramide HCl (Reglan) 10 mg Q6 IV Last administered on 12/04/18 12:51; Admin Dose 10 MG; Start 11/29/18 at 18:00 Polyethylene Glycol (Miralax) 17 gm BID GTB Last administered on 12/03/18 2 1:27; Admin Dose 17 GM; Start 12/01/18 at 21:00 ERNESTO MCADAMS NP Dec 04, 2018 15:23
[2018-12-04] MEDS: DOCUSATE SODIUM 10 MG/ML (10ML CUP) GTB SCH (21:00)
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
[2018-12-05] VITALS (21 sets, daily range): BP systolic 98–124; BP diastolic 58–76; PULSE 67–115; RESP 14–20
[2018-12-05] MEDS: METOCLOPRAMIDE 10 MG INJ IV SCH ×4 (00:15→17:03)
[2018-12-05] MEDS: CHLORHEXIDINE GLUCONATE 15 ML UD CUP MM SCH ×2 (06:01→17:03)
[2018-12-05] MEDS: LEVETIRACETAM (100 MG/ML) 5ML CUP GTB SCH ×3 (06:02→22:25)
[2018-12-05] MEDS: MULTIVITAMINS/MINERALS TAB PO SCH (07:59)
[2018-12-05] MEDS: POLYETHYLENE GLYCOL 17 GM PACKET GTB SCH ×2 (07:59→21:00)
[2018-12-05] MEDS: ASPIRIN (EC) 81 MG TAB PO SCH (08:00)
[2018-12-05] MEDS: ASCORBIC ACID 500 MG TAB GTB SCH (08:00)
[2018-12-05] MEDS: TERBINAFINE 250 MG TAB GTB SCH (08:00)
[2018-12-05] MEDS: FAMOTIDINE 20 MG TAB GTB SCH ×2 (08:00→22:25)
[2018-12-05] MEDS: BALSAM PERU/CASTOR OIL 60 GM TUBE TOP SCH (08:00)
[2018-12-05] MEDS: ENOXAPARIN 30 MG/0.3 ML SYG SC SCH (08:05)
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
--- NOTE | 2018-12-05 11:48 | CONS ---
Assessment/Plan Assessment/Plan Hospital Course (Demo Recall) 43 yo male Interval hx: Pt has a rectal tube with soft brown stool. Abd is soft. Tolerating tube feeds at 60cc/hr. Overnight pt was being cleaned when he coughed and rectal tube came out with two large formed bm. Rectal tube replaced and continues to have liquid brown stool. 1. Fecal impaction with gaseous distention of the colon -improved 2. Status post PEG. 3. 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 Skin lesion, probably focal chronic folliculitis. 5. Status post trach 6. UTI 7. Diarrhea could be due to fecal impaction. Will send stool cx Plan Stool cx, c diff Continue with reglan Continue with tube feeds, monitor residuals Hold stool softeners as needed Pt examined and plan of care discussed with Dr. Smith Consultation Date/Type/Reason Admit Date/Time Nov 23, 2018 at 09:56 Initial Consult Date 11/22/18 Requesting Provider: DB SUMMERS Date/Time of Note DATE: 12/05/18 TIME: 11:42 Exam/Review of Systems Exam Vitals Vital Signs Date Temp Pulse Resp B/P (MAP) Pulse Ox O2 O2 Flow FiO2 Time Delivery Rate 12/05/18 30 08:14 12/05/18 98.2 82 15 100/58 96 Mechanical 08:00 (72) Ventilator Intake and Output 12/04/18 12/04/18 12/05/18 1515:00 23:00 07:00 IntakeIntake Total 1220 ml OutputOutput Total 1400 ml BalanceBalance -180 ml Respiratory: clear to auscultation Cardiovascular: regular rate and rhythm Gastrointestinal: soft, non-tender Results Result Diagram: 12/05/18 0458 12/05/18 0458 Results 24hrs Laboratory Tests Test 12/05/18 04:58 White Blood Count 11.0 H Red Blood Count 3.82 L Hemoglobin 10.5 L Hematocrit 33.6 L Mean Corpuscular Volume 88.0 Mean Corpuscular Hemoglobin 27.5 L Mean Corpuscular Hemoglobin Concent 31.3 L Red Cell Distribution Width 15.7 H Platelet Count 284 Mean Platelet Volume 11.3 H Immature Granulocytes % 0.500 H Neutrophils % 66.8 Lymphocytes % 19.6 Monocytes % 7.5 Eosinophils % 5.1 Basophils % 0.5 Nucleated Red Blood Cells % 0.0 Immature Granulocytes # 0.050 H Neutrophils # 7.4 Lymphocytes # 2.2 Monocytes # 0.8 Eosinophils # 0.6 H Basophils # 0.1 Nucleated Red Blood Cells # 0.0 Sodium Level 140 Potassium Level 4.1 Chloride Level 102 Carbon Dioxide Level 27 Anion Gap 11 Blood Urea Nitrogen 19 Creatinine 0.50 L Est Glomerular Filtrat Rate mL/min > 60 Glucose Level 115 Calcium Level 9.3 Magnesium Level 2.2 Medications Medication Current Medications Ascorbic Acid (Vitamin C) 500 mg DAILY GTB Last administered on 12/05/18 08:00; Admin Dose 500 MG; Start 11/22/18 at 09:00 Aspirin (Halfprin) 81 mg DAILY PO Last administered on 12/05/18 08:00; Admin Dose 81 MG; Start 11/22/18 at 09:00 Chlorhexidine Gluconate (Peridex) 15 ml Q12H MM Last administered on 12/05/18 06:01; Admin Dose 15 ML; Start 11/21/18 at 16:30 Multivitamins/ Minerals (Theragran-M) 1 tab DAILY PO Last administered on 12/05/18 07:59; Admin Dose 1 TAB; Start 11/22/18 at 09:00 IV Flush (NS 3 ml) 3 ml PER PROTOCOL IV ; Start 11/21/18 at 16:30 Lorazepam (Ativan) 0.5 mg Q6H PRN IV .ANXIETY Last administered on 11/27/18 03:58; Admin Dose 0.5 MG; Start 11/21/18 at 16:30 Ondansetron HCl (Zofran Inj) 4 mg Q6H PRN IV NAUSEA/VOMITING; Start 11/21/18 at 16:30 Acetaminophen (Tylenol Tab) 650 mg Q6H PRN PO .PAIN 1-3 OR TEMP Last administered on 11/27/18 13:29; Admin Dose 650 MG; Start 11/21/18 at 16:30 Docusate Sodium (Colace) 100 mg Q12H PRN PO .CONSTIPATION; Start 11/21/18 at 16:30 Magnesium Hydroxide (Milk Of Mag) 30 ml DAILY PRN PO .CONSTIPATION Last administered on 11/29/18 17:40; Admin Dose 30 ML; Start 11/21/18 at 16:30 Enoxaparin Sodium (Lovenox) 30 mg DAILY SC Last administered on 12/05/18 08:05; Admin Dose 30 MG; Start 11/22/18 at 09:00 Albuterol/ Ipratropium (Duoneb) 3 ml Q4H RESP THERAPY PRN HHN SHORTNESS OF BREATH; Start 11/21/18 at 16:30 Levetiracetam (Keppra Liquid) 1,000 mg Q8 GTB Last administered on 12/05/18 06:02; Admin Dose 1,000 MG; Start 11/21/18 at 20:52 Docusate Sodium (Colace Liquid Cup) 100 mg QHS GTB Last administered on 12/03/18 21:27; Admin Dose 100 MG; Start 11/21/18 at 21:00 Famotidine (Pepcid) 20 mg Q12 GTB Last administered on 12/05/18 08:00; Admin Dose 20 MG; Start 11/21/18 at 21:00 Miscellaneous Information (Pending [facility] Order For Wound Care) This patient garcia... PRN PRN XX WOUND CARE; Start 11/22/18 at 06:00 Terbinafine HCl (Lamisil) 250 mg DAILY GTB Last administered on 12/05/18 08:00; Admin Dose 250 MG; Start 11/29/18 at 09:00 Metoclopramide HCl (Reglan) 10 mg Q6 IV Last administered on 12/05/18 06:02; Admin Dose 10 MG; Start 11/29/18 at 18:00 Polyethylene Glycol (Miralax) 17 gm BID GTB Last administered on 12/03/18 21:27; Admin Dose 17 GM; Start 12/01/18 at 21:00 JUDITH YAO Dec 05, 2018 11:48
--- NOTE | 2018-12-05 13:28 | CONS ---
Assessment/Plan Assessment/Plan Hospital Course (Demo Recall) No acute changes overnight, patient is sleeping, looks comfortable, no fevers WBC 11 platelets 284 neutrophils 66.8 BUN 19 creatinine 0.50 Microbiology: Blood culture grew staph 1 set, urine culture growing Proteus and Enterococcus, repeat blood cultures negative Indwelling: Trach PEG suprapubic catheter Antimicrobials: Lamisil Diagnosis: Chest x-ray on admission revealed no evidence of acute cardiopulmonary process Urinalysis on admission was positive for nitrite leukocyte esterase and few bacteria Physical examination: Chronically ill-appearing vegetative middle-aged man who i s in no distress. Head atraumatic neck is supple chest rise symmetrical breath sounds diminished bases. Heart: S1-S2. Abdomen soft bowel sounds present. Extremities contractured Assessment: 1. S/p sepsis, present on admission 2. Gram-positive cocci bacteremia cw contaminant 3. S/p UTI 4. Occipital area skin lesion, status post biopsy 5. Chronic encephalopathy 6. Onychomycosis of toenails Plan: Remains stable, observe off abx. Consultation Date/Type/Reason Admit Date/Time Nov 23, 2018 at 09:56 Initial Consult Date 11/22/18 Type of Consult id Requesting Provider: DB SUMMERS Date/Time of Note DATE: 12/05/18 TIME: 13:27 Exam/Review of Systems Exam Vitals Vital Signs Date Temp Pulse Resp B/P (MAP) Pulse Ox O2 O2 Flow FiO2 Time Delivery Rate 12/05/18 98.7 67 14 98/62 (74) 99 Mechanical 12:00 Ventilator 12/05/18 30 11:25 Intake and Output 12/04/18 12/04/18 12/05/18 1515:00 23:00 07:00 IntakeIntake Total 1220 ml OutputOutput Total 1400 ml BalanceBalance -180 ml Results Result Diagram: 12/05/18 0458 12/05/18 0458 Results 24hrs Laboratory Tests Test 12/05/18 04:58 White Blood Count 11.0 H Red Blood Count 3.82 L Hemoglobin 10.5 L Hematocrit 33.6 L Mean Corpuscular Volume 88.0 Mean Corpuscular Hemoglobin 27.5 L Mean Corpuscular Hemoglobin Concent 31.3 L Red Cell Distribution Width 15.7 H Platelet Count 284 Mean Platelet Volume 11.3 H Immature Granulocytes % 0.500 H Neutrophils % 66.8 Lymphocytes % 19.6 Monocytes % 7.5 Eosinophils % 5.1 Basophils % 0.5 Nucleated Red Blood Cells % 0.0 Immature Granulocytes # 0.050 H Neutrophils # 7.4 Lymphocytes # 2.2 Monocytes # 0.8 Eosinophils # 0.6 H Basophils # 0.1 Nucleated Red Blood Cells # 0.0 Sodium Level 140 Potassium Level 4.1 Chloride Level 102 Carbon Dioxide Level 27 Anion Gap 11 Blood Urea Nitrogen 19 Creatinine 0.50 L Est Glomerular Filtrat Rate mL/min > 60 Glucose Level 115 Calcium Level 9.3 Magnesium Level 2.2 Medications Medication Current Medications Ascorbic Acid (Vitamin C) 500 mg DAILY GTB Last administered on 12/05/18 08:0 0; Admin Dose 500 MG; Start 11/22/18 at 09:00 Aspirin (Halfprin) 81 mg DAILY PO Last administered on 12/05/18 08:00; Admin Dose 81 MG; Start 11/22/18 at 09:00 Chlorhexidine Gluconate (Peridex) 15 ml Q12H MM Last administered on 12/05/18 06:01; Admin Dose 15 ML; Start 11/21/18 at 16:30 Multivitamins/ Minerals (Theragran-M) 1 tab DAILY PO Last administered on 12/05/18 07:59; Admin Dose 1 TAB; Start 11/22/18 at 09:00 IV Flush (NS 3 ml) 3 ml PER PROTOCOL IV ; Start 11/21/18 at 16:30 Lorazepam (Ativan) 0.5 mg Q6H PRN IV .ANXIETY Last administered on 11/27/18 03:58; Admin Dose 0.5 MG; Start 11/21/18 at 16:30 Ondansetron HCl (Zofran Inj) 4 mg Q6H PRN IV NAUSEA/VOMITING; Start 11/21/18 at 16:30 Acetaminophen (Tylenol Tab) 650 mg Q6H PRN PO .PAIN 1-3 OR TEMP Last administered on 11/27/18 13:29; Admin Dose 650 MG; Start 11/21/18 at 16:30 Docusate Sodium (Colace) 100 mg Q12H PRN PO .CONSTIPATION; Start 11/21/18 at 16:30 Magnesium Hydroxide (Milk Of Mag) 30 ml DAILY PRN PO .CONSTIPATION Last adm inistered on 11/29/18 17:40; Admin Dose 30 ML; Start 11/21/18 at 16:30 Enoxaparin Sodium (Lovenox) 30 mg DAILY SC Last administered on 12/05/18 08:05; Admin Dose 30 MG; Start 11/22/18 at 09:00 Albuterol/ Ipratropium (Duoneb) 3 ml Q4H RESP THERAPY PRN HHN SHORTNESS OF BREATH; Start 11/21/18 at 16:30 Levetiracetam (Keppra Liquid) 1,000 mg Q8 GTB Last administered on 12/05/18 06:02; Admin Dose 1,000 MG; Start 11/21/18 at 20:52 Docusate Sodium (Colace Liquid Cup) 100 mg QHS GTB Last administered on 12/03/18 21:27; Admin Dose 100 MG; Start 11/21/18 at 21:00 Famotidine (Pepcid) 20 mg Q12 GTB Last administered on 12/05/18 08:00; Admin Dose 20 MG; Start 11/21/18 at 21:00 Miscellaneous Information (Pending [facility] Order For Wound Care) This patient garcia... PRN PRN XX WOUND CARE; Start 11/22/18 at 06:00 Terbinafine HCl (Lamisil) 250 mg DAILY GTB Last administered on 12/05/18 08:00; Admin Dose 250 MG; Start 11/29/18 at 09:00 Metoclopramide HCl (Reglan) 10 mg Q6 IV Last administered on 12/05/18 06:02; Admin Dose 10 MG; Start 11/29/18 at 18:00 Polyethylene Glycol (Miralax) 17 gm BID GTB Last administered on 12/03/18 21:27; Admin Dose 17 GM; Start 12/01/18 at 21:00 ERNESTO MCADAMS NP Dec 05, 2018 13:28
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
[2018-12-05] MEDS: DOCUSATE SODIUM 10 MG/ML (10ML CUP) GTB SCH (21:00)
[2018-12-06] VITALS (21 sets, daily range): BP systolic 94–126; BP diastolic 58–82; PULSE 58–106; RESP 14–23
[2018-12-06] MEDS: ACETAMINOPHEN 325 MG TAB PO PRN ×2 (00:17→16:07)
[2018-12-06] MEDS: METOCLOPRAMIDE 10 MG INJ IV SCH ×4 (00:17→17:28)
[2018-12-06] MEDS: LEVETIRACETAM (100 MG/ML) 5ML CUP GTB SCH ×3 (05:50→20:37)
[2018-12-06] MEDS: CHLORHEXIDINE GLUCONATE 15 ML UD CUP MM SCH ×2 (05:50→15:56)
[2018-12-06] MEDS: POLYETHYLENE GLYCOL 17 GM PACKET GTB SCH ×2 (09:00→20:38)
[2018-12-06] MEDS: MULTIVITAMINS/MINERALS TAB PO SCH (09:19)
[2018-12-06] MEDS: FAMOTIDINE 20 MG TAB GTB SCH ×2 (09:19→20:37)
[2018-12-06] MEDS: ASPIRIN (EC) 81 MG TAB PO SCH (09:19)
[2018-12-06] MEDS: TERBINAFINE 250 MG TAB GTB SCH (09:19)
[2018-12-06] MEDS: ASCORBIC ACID 500 MG TAB GTB SCH (09:20)
[2018-12-06] MEDS: ENOXAPARIN 30 MG/0.3 ML SYG SC SCH (09:29)
[2018-12-06] MEDS: BALSAM PERU/CASTOR OIL 60 GM TUBE TOP SCH (12:25)
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
--- NOTE | 2018-12-06 13:24 | CONS ---
Assessment/Plan Assessment/Plan Hospital Course (Demo Recall) No acute changes overnight Microbiology: Blood culture grew staph 1 set, urine culture growing Proteus and Enterococcus, repeat blood cultures negative. C dif + Indwelling: Trach PEG suprapubic catheter Antimicrobials: Lamisil Diagnosis: Chest x-ray on admission revealed no evidence of acute cardiopulmonary process Urinalysis on admission was positive for nitrite leukocyte esterase and few bacteria Physical examination: Chronically ill-appearing vegetative middle-aged man who is in no distress. Head atraumatic neck is supple chest rise symmetrical breath sounds diminished bases. Heart: S1-S2. Abdomen soft bowel sounds present. Extremities contractured Assessment: 1. C. difficile colitis 1. S/p sepsis, present on admission 2. Gram-positive cocci bacteremia cw contaminant 3. S/p UTI 4. Occipital area skin lesion, status post biopsy 5. Chronic encephalopathy 6. Onychomycosis of toenails Plan: Will add po [place] Consultation Date/Type/Reason Admit Date/Time Nov 23, 2018 at 09:56 Initial Consult Date 11/22/18 Type of Consult id Requesting Provider: DB SUMMERS Date/Time of Note DATE: 12/06/18 TIME: 13:23 Exam/Review of Systems Exam Vitals Vital Signs Date Temp Pulse Resp B/P (MAP) Pulse Ox O2 O2 Flow FiO2 Time Delivery Rate 12/06/18 98.3 58 14 94/63 (73) 96 Room Air 12:10 12/06/18 30 11:15 Intake and Output 12/05/18 12/05/18 12/06/18 1414:59 22:59 06:59 IntakeIntake Total 1040 ml 980 ml OutputOutput Total 500 ml 1100 ml BalanceBalance 540 ml -120 ml Results Result Diagram: 12/06/18 0515 12/06/18 0515 Results 24hrs Laboratory Tests Test 12/06/18 05:15 White Blood Count 12.4 H Red Blood Count 3.94 L Hemoglobin 10.9 L Hematocrit 34.5 L Mean Corpuscular Volume 87.6 Mean Corpuscular Hemoglobin 27.7 L Mean Corpuscular Hemoglobin Concent 31.6 L Red Cell Distribution Width 15.3 H Platelet Count 313 Mean Platelet Volume 11.3 H Immature Granulocytes % 0.700 H Neutrophils % 62.5 Lymphocytes % 23.9 Monocytes % 8.1 Eosinophils % 4.2 Basophils % 0.6 Nucleated Red Blood Cells % 0.0 Immature Granulocytes # 0.090 H Neutrophils # 7.7 H Lymphocytes # 3.0 H Monocytes # 1.0 H Eosinophils # 0.5 Basophils # 0.1 Nucleated Red Blood Cells # 0.0 Sodium Level 137 Potassium Level 4.0 Chloride Level 102 Carbon Dioxide Level 26 Anion Gap 9 Blood Urea Nitrogen 21 H Creatinine 0.53 L Est Glomerular Filtrat Rate mL/min > 60 Glucose Level 100 Calcium Level 9.4 Medications Medication Current Medications Ascorbic Acid (Vitamin C) 500 mg DAILY GTB Last administered on 12/06/18 09:20; Admin Dose 500 MG; Start 11/22/18 at 09:00 Aspirin (Halfprin) 81 mg DAILY PO Last administered on 12/06/18 09:19; Admin Dose 81 MG; Start 11/22/18 at 09:00 Chlorhexidine Gluconate (Peridex) 15 ml Q12H MM Last administered on 12/06/18at 05:50; Admin Dose 15 ML; Start 11/21/18 at 16:30 Multivitamins/ Minerals (Theragran-M) 1 tab DAILY PO Last administered on 12/06/18 09:19; Admin Dose 1 TAB; Start 11/22/18 at 09:00 IV Flush (NS 3 ml) 3 ml PER PROTOCOL IV ; Start 11/21/18 at 16:30 Lorazepam (Ativan) 0.5 mg Q6H PRN IV .ANXIETY Last administered on 11/27/18at 03:58; Admin Dose 0.5 MG; Start 11/21/18 at 16:30 Ondansetron HCl (Zofran Inj) 4 mg Q6H PRN IV NAUSEA/VOMITING; Start 11/21/18 at 16:30 Acetaminophen (Tylenol Tab) 650 mg Q6H PRN PO .PAIN 1-3 OR TEMP Last administered on 12/06/18 00:17; Admin Dose 650 MG; Start 11/21/18 at 16:30 Docusate Sodium (Colace) 100 mg Q12H PRN PO .CONSTIPATION; Start 11/21/18 at 16:30 Magnesium Hydroxide (Milk Of Mag) 30 ml DAILY PRN PO .CONSTIPATION Last administered on 11/29/18at 17:40; Admin Dose 30 ML; Start 11/21/18 at 16:30 Enoxaparin Sodium (Lovenox) 30 mg DAILY SC Last administered on 12/06/18 09:29; Admin Dose 30 MG; Start 11/22/18 at 09:00 Albuterol/ Ipratropium (Duoneb) 3 ml Q4H RESP THERAPY PRN HHN SHORTNESS OF BREATH; Start 11/21/18 at 16:30 Levetiracetam (Keppra Liquid) 1,000 mg Q8 GTB Last administered on 12/06/18at 05:50; Admin Dose 1,000 MG; Start 11/21/18 at 20:52 Docusate Sodium (Colace Liquid Cup) 100 mg QHS GTB Last administered on 12/03 21:27; Admin Dose 100 MG; Start 11/21/18 at 21:00 Famotidine (Pepcid) 20 mg Q12 GTB Last administered on 12/06/18 09:19; Admin Dose 20 MG; Start 11/21/18 at 21:00 Miscellaneous Information (Pending [facility] Order For Wound Care) This patient garcia... PRN PRN XX WOUND CARE; Start 11/22/18 at 06:00 Terbinafine HCl (Lamisil) 250 mg DAILY GTB Last administered on 12/06/18 09:19; Admin Dose 250 MG; Start 11/29/18 at 09:00 Metoclopramide HCl (Reglan) 10 mg Q6 IV Last administered on 12/06/18at 11:20; Admin Dose 10 MG; Start 11/29/18 at 18:00 Polyethylene Glycol (Miralax) 17 gm BID GTB Last administered on 12/03/18at 21:27; Admin Dose 17 GM; Start 12/01/18 at 21:00 Vancomycin HCl (Vancomycin Oral Syringe) 250 mg Q6 PO ; Start 12/06/18 at 13:30 ERNESTO MCADAMS NP Dec 06, 2018 13:24
[2018-12-06] MEDS: VANCOMYCIN HCL 250 MG/5ML POSYG PO SCH ×2 (14:17→17:28)
--- NOTE | 2018-12-06 17:36 | CONS ---
Assessment/Plan Assessment/Plan Assessment/Plan (Daily) Assessment/Plan Assessment/Plan Hospital Course (Demo Recall) 43 yo male Interval hx: Pt has a rectal tube with soft brown stool. Abd is soft. Tolerating tube feeds at 60cc/hr. Overnight pt was being cleaned when he coughed and rectal tube came out with two large formed bm. Rectal tube replaced and continues to have liquid brown stool. 1. Fecal impaction with gaseous distention of the colon -improved 2. Status post PEG. 3. 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 Skin lesion, probably focal chronic folliculitis. 5. Status post trach 6. UTI 7. Diarrhea could be due to fecal impaction. Will send stool cx Plan Stool cx, c diff Continue with reglan Continue with tube feeds, monitor residuals Hold stool softeners as needed Consultation Date/Type/Reason Admit Date/Time Nov 23, 2018 at 09:56 Initial Consult Date 11/22/18 Requesting Provider: DB SUMMERS Date/Time of Note DATE: 12/06/18 TIME: 17:35 24 HR Interval Summary Free Text/Dictation Patient has a loose bowel movement Exam/Review of Systems Exam Vitals Vital Signs Date Temp Pulse Resp B/P (MAP) Pulse Ox O2 O2 Flow FiO2 Time Delivery Rate 12/06/18 82 16 99 30 17:13 12/06/18 98.2 126/82 Mechanical 16:00 (97) Ventilator Intake and Output 12/05/18 12/05/18 12/06/18 1515:00 23:00 07:00 IntakeIntake Total 1040 ml 980 ml OutputOutput Total 500 ml 1100 ml BalanceBalance 540 ml -120 ml ENMT: intubated Neck: supple Respiratory: diminished breath sounds Cardiovascular: regular rate and rhythm, nl pulses Extremities: normal pulses Neurological: confused, lethargic Results Result Diagram: 12/06/18 0515 12/06/18 0515 Results 24hrs Laboratory Tests Test 12/06/18 05:15 White Blood Count 12.4 H Red Blood Count 3.94 L Hemoglobin 10.9 L Hematocrit 34.5 L Mean Corpuscular Volume 87.6 Mean Corpuscular Hemoglobin 27.7 L Mean Corpuscular Hemoglobin Concent 31.6 L Red Cell Distribution Width 15.3 H Platelet Count 313 Mean Platelet Volume 11.3 H Immature Granulocytes % 0.700 H Neutrophils % 62.5 Lymphocytes % 23.9 Monocytes % 8.1 Eosinophils % 4.2 Basophils % 0.6 Nucleated Red Blood Cells % 0.0 Immature Granulocytes # 0.090 H Neutrophils # 7.7 H Lymphocytes # 3.0 H Monocytes # 1.0 H Eosinophils # 0.5 Basophils # 0.1 Nucleated Red Blood Cells # 0.0 Sodium Level 137 Potassium Level 4.0 Chloride Level 102 Carbon Dioxide Level 26 Anion Gap 9 Blood Urea Nitrogen 21 H Creatinine 0.53 L Est Glomerular Filtrat Rate mL/min > 60 Glucose Level 100 Calcium Level 9.4 Medications Medication Current Medications Ascorbic Acid (Vitamin C) 500 mg DAILY GTB Last administered on 12/06/18 09:20; Admin Dose 500 MG; Start 11/22/18 at 09:00 Aspirin (Halfprin) 81 mg DAILY PO Last administered on 12/06/18 09:19; Admin Dose 81 MG; Start 11/22/18 at 09:00 Chlorhexidine Gluconate (Peridex) 15 ml Q12H MM Last administered on 12/06/18at 15:56; Admin Dose 15 ML; Start 11/21/18 at 16:30 Multivitamins/ Minerals (Theragran-M) 1 tab DAILY PO Last administered on 12/06/18 09:19; Admin Dose 1 TAB; Start 11/22/18 at 09:00 IV Flush (NS 3 ml) 3 ml PER PROTOCOL IV ; Start 11/21/18 at 16:30 Lorazepam (Ativan) 0.5 mg Q6H PRN IV .ANXIETY Last administered on 11/27/18 03:58; Admin Dose 0.5 MG; Start 11/21/18 at 16:30 Ondansetron HCl (Zofran Inj) 4 mg Q6H PRN IV NAUSEA/VOMITING; Start 11/21/18 at 16:30 Acetaminophen (Tylenol Tab) 650 mg Q6H PRN PO .PAIN 1-3 OR TEMP Last administered on 12/06/18 16:07; Admin Dose 650 MG; Start 11/21/18 at 16:30 Docusate Sodium (Colace) 100 mg Q12H PRN PO .CONSTIPATION; Start 11/21/18 at 16:30 Magnesium Hydroxide (Milk Of Mag) 30 ml DAILY PRN PO .CONSTIPATION Last administered on 11/29/18 17:40; Admin Dose 30 ML; Start 11/21/18 at 16:30 Enoxaparin Sodium (Lovenox) 30 mg DAILY SC Last administered on 12/06/18 09:29; Admin Dose 30 MG; Start 11/22/18 at 09:00 Albuterol/ Ipratropium (Duoneb) 3 ml Q4H RESP THERAPY PRN HHN SHORTNESS OF BREATH; Start 11/21/18 at 16:30 Levetiracetam (Keppra Liquid) 1,000 mg Q8 GTB Last administered on 12/06/18 1 4:17; Admin Dose 1,000 MG; Start 11/21/18 at 20:52 Docusate Sodium (Colace Liquid Cup) 100 mg QHS GTB Last administered on 12/03/18 21:27; Admin Dose 100 MG; Start 11/21/18 at 21:00 Famotidine (Pepcid) 20 mg Q12 GTB Last administered on 12/06/18 09:19; Admin Dose 20 MG; Start 11/21/18 at 21:00 Miscellaneous Information (Pending [facility] Order For Wound Care) This patient garcia... PRN PRN XX WOUND CARE; Start 11/22/18 at 06:00 Terbinafine HCl (Lamisil) 250 mg DAILY GTB Last administered on 12/06/18 09:19; Admin Dose 250 MG; Start 11/29/18 at 09:00 Metoclopramide HCl (Reglan) 10 mg Q6 IV Last administered on 12/06/18 17:28; Admin Dose 10 MG; Start 11/29/18 at 18:00 Polyethylene Glycol (Miralax) 17 gm BID GTB Last administered on 12/03/18 21:27; Admin Dose 17 GM; Start 12/01/18 at 21:00 Vancomycin HCl (Vancomycin Oral Syringe) 250 mg Q6 PO Last administered on 12/06/18 17:28; Admin Dose 250 MG; Start 12/06/18 at 13:30 LUDA COHEN MD Dec 06, 2018 17:36
[2018-12-06] MEDS: DOCUSATE SODIUM 10 MG/ML (10ML CUP) GTB SCH (20:38)
[2018-12-07] VITALS (19 sets, daily range): BP systolic 86–127; BP diastolic 56–78; PULSE 66–100; RESP 14–20
[2018-12-07] MEDS: METOCLOPRAMIDE 10 MG INJ IV SCH ×4 (00:15→17:37)
[2018-12-07] MEDS: VANCOMYCIN HCL 250 MG/5ML POSYG PO SCH ×4 (00:15→17:44)
[2018-12-07] MEDS: CHLORHEXIDINE GLUCONATE 15 ML UD CUP MM SCH ×2 (04:47→13:47)
[2018-12-07] MEDS: LEVETIRACETAM (100 MG/ML) 5ML CUP GTB SCH ×2 (05:39→13:46)
[2018-12-07] MEDS: POLYETHYLENE GLYCOL 17 GM PACKET GTB SCH (09:01)
[2018-12-07] MEDS: TERBINAFINE 250 MG TAB GTB SCH (09:02)
[2018-12-07] MEDS: BALSAM PERU/CASTOR OIL 60 GM TUBE TOP SCH (09:02)
[2018-12-07] MEDS: FAMOTIDINE 20 MG TAB GTB SCH (09:02)
[2018-12-07] MEDS: MULTIVITAMINS/MINERALS TAB PO SCH (09:02)
[2018-12-07] MEDS: ASCORBIC ACID 500 MG TAB GTB SCH (09:02)
[2018-12-07] MEDS: ASPIRIN (EC) 81 MG TAB PO SCH (09:02)
[2018-12-07] MEDS: ENOXAPARIN 30 MG/0.3 ML SYG SC SCH (09:08)
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
--- NOTE | 2018-12-07 12:12 | CONS ---
Assessment/Plan Assessment/Plan Hospital Course (Demo Recall) No acute changes overnight looks comfortable, no fevers Microbiology: Blood culture grew staph 1 set, urine culture growing Proteus and Enterococcus, repeat blood cultures negative. C dif + Indwelling: Trach PEG suprapubic catheter Antimicrobials: Lamisil PO Vanco Diagnosis: Chest x-ray on admission revealed no evidence of acute cardiopulmonary process Urinalysis on admission was positive for nitrite leukocyte esterase and few bacteria Physical examination: Chronically ill-appearing vegetative middle-aged man who is in no distress. Head atraumatic neck is supple chest rise symmetrical breath sounds diminished bases. Heart: S1-S2. Abdomen soft bowel sounds present. Extremities contractured Assessment: 1. C. difficile colitis 1. S/p sepsis, present on admission 2. Gram-positive cocci bacteremia cw contaminant 3. S/p UTI 4. Occipital area skin lesion, status post biopsy 5. Chronic encephalopathy 6. Onychomycosis of toenails Plan: Stable, continue on current abx Consultation Date/Type/Reason Admit Date/Time Nov 23, 2018 at 09:56 Initial Consult Date 11/22/18 Type of Consult id Requesting Provider: DB SUMMERS Date/Time of Note DATE: 12/07/18 TIME: 12:11 Exam/Review of Systems Exam Vitals Vital Signs Date Temp Pulse Resp B/P (MAP) Pulse Ox O2 O2 Flow FiO2 Time Delivery Rate 12/07/18 98.0 82 20 113/75 100 11:53 (88) 12/07/18 30 11:12 12/06/18 Mechanical 20:00 Ventilator Intake and Output 12/06/18 12/06/18 12/07/18 1515:00 23:00 07:00 IntakeIntake Total 1080 ml 1020 ml OutputOutput Total 1450 ml 1400 ml BalanceBalance -370 ml -380 ml Results Result Diagram: 12/07/18 0617 12/07/18 0617 Results 24hrs Laboratory Tests Test 12/07/18 06:17 White Blood Count 10.2 Red Blood Count 4.10 L Hemoglobin 11.3 L Hematocrit 36.2 L Mean Corpuscular Volume 88.3 Mean Corpuscular Hemoglobin 27.6 L Mean Corpuscular Hemoglobin Concent 31.2 L Red Cell Distribution Width 15.5 H Platelet Count 286 Mean Platelet Volume 11.5 H Immature Granulocytes % 0.500 H Neutrophils % 70.3 Lymphocytes % 16.0 Monocytes % 8.5 Eosinophils % 4.1 Basophils % 0.6 Nucleated Red Blood Cells % 0.0 Immature Granulocytes # 0.050 H Neutrophils # 7.2 Lymphocytes # 1.6 Monocytes # 0.9 Eosinophils # 0.4 Basophils # 0.1 Nucleated Red Blood Cells # 0.0 Sodium Level 141 Potassium Level 4.0 Chloride Level 102 Carbon Dioxide Level 26 Anion Gap 13 Blood Urea Nitrogen 20 Creatinine 0.49 L Est Glomerular Filtrat Rate mL/min > 60 Glucose Level 115 Calcium Level 9.7 Medications Medication Current Medications Ascorbic Acid (Vitamin C) 500 mg DAILY GTB Last administered on 12/07/18 09:02; Admin Dose 500 MG; Start 11/22/18 at 09:00 Aspirin (Halfprin) 81 mg DAILY PO Last administered on 12/07/18 09:02; Admin Dose 81 MG; Start 11/22/18 at 09:00 Chlorhexidine Gluconate (Peridex) 15 ml Q12H MM Last administered on 12/07/18 04:47; Admin Dose 15 ML; Start 11/21/18 at 16:30 Multivitamins/ Minerals (Theragran-M) 1 tab DAILY PO Last administered on 12/07/18 09:02; Admin Dose 1 TAB; Start 11/22/18 at 09:00 IV Flush (NS 3 ml) 3 ml PER PROTOCOL IV ; Start 11/21/18 at 16:30 Lorazepam (Ativan) 0.5 mg Q6H PRN IV .ANXIETY Last administered on 11/27/18 03:58; Admin Dose 0.5 MG; Start 11/21/18 at 16:30 Ondansetron HCl (Zofran Inj) 4 mg Q6H PRN IV NAUSEA/VOMITING; Start 11/21/18 at 16:30 Acetaminophen (Tylenol Tab) 650 mg Q6H PRN PO .PAIN 1-3 OR TEMP Last administered on 12/06/18 16:07; Admin Dose 650 MG; Start 11/21/18 at 16:30 Docusate Sodium (Colace) 100 mg Q12H PRN PO .CONSTIPATION; Start 11/21/18 at 16:30 Magnesium Hydroxide (Milk Of Mag) 30 ml DAILY PRN PO .CONSTIPATION Last administered on 11/29/18 17:40; Admin Dose 30 ML; Start 11/21/18 at 16:30 Enoxaparin Sodium (Lovenox) 30 mg DAILY SC Last administered on 12/07/18 09:08; Admin Dose 30 MG; Start 11/22/18 at 09:00 Albuterol/ Ipratropium (Duoneb) 3 ml Q4H RESP THERAPY PRN HHN SHORTNESS OF BREATH; Start 11/21/18 at 16:30 Levetiracetam (Keppra Liquid) 1,000 mg Q8 GTB Last administered on 12/07/18 05:39; Admin Dose 1,000 MG; Start 11/21/18 at 20:52 Docusate Sodium (Colace Liquid Cup) 100 mg QHS GTB Last administered on 12/03/18 21:27; Admin Dose 100 MG; Start 11/21/18 at 21:00 Famotidine (Pepcid) 20 mg Q12 GTB Last administered on 12/07/18 09:02; Admin Dose 20 MG; Start 11/21/18 at 21:00 Miscellaneous Information (Pending [facility] Order For Wound Care) This patient garcia... PRN PRN XX WOUND CARE; Start 11/22/18 at 06:00 Terbinafine HCl (Lamisil) 250 mg DAILY GTB Last administered on 12/07/18 09:02; Admin Dose 250 MG; Start 11/29/18 at 09:00 Metoclopramide HCl (Reglan) 10 mg Q6 IV Last administered on 12/07/18 11:29; Admin Dose 10 MG; Start 11/29/18 at 18:00 Polyethylene Glycol (Miralax) 17 gm BID GTB Last administered on 12/07/18 09:01; Admin Dose 17 GM; Start 12/01/18 at 21:00 Vancomycin HCl (Vancomycin Oral Syringe) 250 mg Q6 PO Last administered on 12/07/18 11:29; Admin Dose 250 MG; Start 12/06/18 at 13:30 ERNESTO MCADAMS NP Dec 07, 2018 12:12
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
--- NOTE | 2018-12-07 18:55 | CONS ---
Assessment/Plan Assessment/Plan Assessment/Plan (Daily) Assessment/Plan Hospital Course (Demo Recall) 43 yo male Interval hx: Pt has a rectal tube with soft brown stool. Abd is soft. Tolerating tube feeds at 60cc/hr. Overnight pt was being cleaned when he coughed and rectal tube came out with two large formed bm. Rectal tube replaced and continues to have liquid brown stool. 1. Fecal impaction with gaseous distention of the colon -improved 2. Status post PEG. 3. 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 Skin lesion, probably focal chronic folliculitis. 5. Status post trach 6. UTI 7. Diarrhea now secondary to C. difficile colitis Plan Stool cx, c diff Continue with reglan Continue with tube feeds, monitor residuals Hold stool softeners as needed Patient is on vancomycin and continue that Consultation Date/Type/Reason Admit Date/Time Nov 23, 2018 at 09:56 Initial Consult Date 11/22/18 Requesting Provider: DB SUMMERS Date/Time of Note DATE: 12/07/18 TIME: 18:54 24 HR Interval Summary Subjective hx not possible: pt non-verbal Exam/Review of Systems Exam Vitals Vital Signs Date Temp Pulse Resp B/P (MAP) Pulse Ox O2 O2 Flow FiO2 Time Delivery Rate 12/07/18 80 14 100 30 17:11 12/07/18 98.4 127/78 14:59 (94) 12/06/18 Mechanical 20:00 Ventilator Intake and Output 12/06/18 12/06/18 12/07/18 1515:00 23:00 07:00 IntakeIntake Total 1080 ml 1020 ml OutputOutput Total 1450 ml 1400 ml BalanceBalance -370 ml -380 ml ENMT: intubated Respiratory: diminished breath sounds Cardiovascular: nl pulses Gastrointestinal: nl liver, spleen Musculoskeletal: nl extremities to inspection Results Result Diagram: 12/07/1817 12/07/18 0617 Results 24hrs Laboratory Tests Test 12/07/18 06:17 White Blood Count 10.2 Red Blood Count 4.10 L Hemoglobin 11.3 L Hematocrit 36.2 L Mean Corpuscular Volume 88.3 Mean Corpuscular Hemoglobin 27.6 L Mean Corpuscular Hemoglobin Concent 31.2 L Red Cell Distribution Width 15.5 H Platelet Count 286 Mean Platelet Volume 11.5 H Immature Granulocytes % 0.500 H Neutrophils % 70.3 Lymphocytes % 16.0 Monocytes % 8.5 Eosinophils % 4.1 Basophils % 0.6 Nucleated Red Blood Cells % 0.0 Immature Granulocytes # 0.050 H Neutrophils # 7.2 Lymphocytes # 1.6 Monocytes # 0.9 Eosinophils # 0.4 Basophils # 0.1 Nucleated Red Blood Cells # 0.0 Sodium Level 141 Potassium Level 4.0 Chloride Level 102 Carbon Dioxide Level 26 Anion Gap 13 Blood Urea Nitrogen 20 Creatinine 0.49 L Est Glomerular Filtrat Rate mL/min > 60 Glucose Level 115 Calcium Level 9.7 Medications Medication Current Medications Ascorbic Acid (Vitamin C) 500 mg DAILY GTB Last administered on 12/07/18 09:02; Admin Dose 500 MG; Start 11/22/18 at 09:00 Aspirin (Halfprin) 81 mg DAILY PO Last administered on 12/07/18 09:02; Admin Dose 81 MG; Start 11/22/18 at 09:00 Chlorhexidine Gluconate (Peridex) 15 ml Q12H MM Last administered on 12/07/18 13:47; Admin Dose 15 ML; Start 11/21/18 at 16:30 Multivitamins/ Minerals (Theragran-M) 1 tab DAILY PO Last administered on 12/07/18 09:02; Admin Dose 1 TAB; Start 11/22/18 at 09:00 IV Flush (NS 3 ml) 3 ml PER PROTOCOL IV ; Start 11/21/18 at 16:30 Lorazepam (Ativan) 0.5 mg Q6H PRN IV .ANXIETY Last administered on 11/27/18 03:58; Admin Dose 0.5 MG; Start 11/21/18 at 16:30 Ondansetron HCl (Zofran Inj) 4 mg Q6H PRN IV NAUSEA/VOMITING; Start 11/21/18 at 16:30 Acetaminophen (Tylenol Tab) 650 mg Q6H PRN PO .PAIN 1-3 OR TEMP Last administered on 12/06/18 16:07; Admin Dose 650 MG; Start 11/21/18 at 16:30 Docusate Sodium (Colace) 100 mg Q12H PRN PO .CONSTIPATION; Start 11/21/18 at 16:30 Magnesium Hydroxide (Milk Of Mag) 30 ml DAILY PRN PO .CONSTIPATION Last administered on 11/29/18 17:40; Admin Dose 30 ML; Start 11/21/18 at 16:30 Enoxaparin Sodium (Lovenox) 30 mg DAILY SC Last administered on 12/07/18 09:08; Admin Dose 30 MG; Start 11/22/18 at 09:00 Albuterol/ Ipratropium (Duoneb) 3 ml Q4H RESP THERAPY PRN HHN SHORTNESS OF BREATH; Start 11/21/18 at 16:30 Levetiracetam (Keppra Liquid) 1,000 mg Q8 GTB Last administered on 12/07/18 13:46; Admin Dose 1,000 MG; Start 11/21/18 at 20:52 Docusate Sodium (Colace Liquid Cup) 100 mg QHS GTB Last administered on 21:27; Admin Dose 100 MG; Start 11/21/18 at 21:00 Famotidine (Pepcid) 20 mg Q12 GTB Last administered on 12/07/18 09:02; Admin Dose 20 MG; Start 11/21/18 at 21:00 Miscellaneous Information (Pending [facility] Order For Wound Care) This patient garcia... PRN PRN XX WOUND CARE; Start 11/22/18 at 06:00 Terbinafine HCl (Lamisil) 250 mg DAILY GTB Last administered on 12/07/18 09:02; Admin Dose 250 MG; Start 11/29/18 at 09:00 Metoclopramide HCl (Reglan) 10 mg Q6 IV Last administered on 12/07/18 17:37; Admin Dose 10 MG; Start 11/29/18 at 18:00 Polyethylene Glycol (Miralax) 17 gm BID GTB Last administered on 12/07/18 09:01; Admin Dose 17 GM; Start 12/01/18 at 21:00 Vancomycin HCl (Vancomycin Oral Syringe) 250 mg Q6 PO Last administered on 12/07/18 17:44; Admin Dose 250 MG; Start 12/06/18 at 13:30 LUDA COHEN MD Dec 07, 2018 18:55
== END 2018-12-07 20:26 | DRG 870 ==
LOC: E/R 12:09 → 6WM 12:34 → OBSVTOIN 11-23 09:56
PROVIDERS: ADMIT Internal Medicine; ATTEND Internal Medicine
PROC: 5A1955Z Respiratory Ventilation, Greater than 96 Consecutive Hours (ICD-10-PCS; principal; 2018-11-22)
PROC: 0HB0XZX Excision of Scalp Skin, External Approach, Diagnostic (ICD-10-PCS; 2018-11-24)
DX: A41.50 Gram-negative sepsis, unspecified (principal); G82.50 Quadriplegia, unspecified; G93.1 Anoxic brain damage, not elsewhere classified; N39.0 Urinary tract infection, site not specified; J96.10 Chronic respiratory failure, unspecified whether with hypoxia or hypercapnia; A04.72 Enterocolitis due to Clostridium difficile, not specified as recurrent; Z99.11 Dependence on respirator [ventilator] status; R40.3 Persistent vegetative state; B95.2 Enterococcus as the cause of diseases classified elsewhere; B96.4 Proteus (mirabilis) (morganii) as the cause of diseases classified elsewhere; B35.1 Tinea unguium; D64.9 Anemia, unspecified; E03.9 Hypothyroidism, unspecified; G40.909 Epilepsy, unspecified, not intractable, without status epilepticus; K59.00 Constipation, unspecified; L73.9 Follicular disorder, unspecified; N31.9 Neuromuscular dysfunction of bladder, unspecified; R11.10 Vomiting, unspecified; R14.0 Abdominal distension (gaseous); R13.10 Dysphagia, unspecified; S14.109S Unspecified injury at unspecified level of cervical spinal cord, sequela; Y24.9XXS Unspecified firearm discharge, undetermined intent, sequela; Z93.51 Cutaneous-vesicostomy status; Z93.0 Tracheostomy status; Z93.1 Gastrostomy status; Z79.82 Long term (current) use of aspirin
CPT/HCPCS: 36415; 71045; 74018; 80048; 80202; 81001; 83605; 83735; 84145; 84443; 85025; 85610; 85730; 87045; 87075; 87081; 87086; 88304; 94002; 94003; G0378; J0692; J0696; J1650; J2060; J2270; J2765; J3370; J7040; J7050; Q9967